=== PATIENT | male | born 1960 | race African-American/Black ===

== ENCOUNTER 2016-10-18 12:16 | Emergency (ER) | payer OTHER ==
[~2016-10-18] VITALS: Ht 165.1 cm; Wt 64.4 kg
[~2016-10-18 12:16] MED LIST: CLINDAMYCIN HC300 MG ORAL
[2016-10-18 13:05] VITALS: BP 132/76
--- NOTE | 2016-10-18 13:23 | Emergency Room Report ---
History of Present Illness General Chief Complaint: Upper Respiratory Illness Source: Patient Present Illness HPI 56-year-old male presents to the emergency department complaining of productive cough x3 days with intermittent fevers and chills. Patient reports a history of asthma and requires albuterol inhaler at home patient is out of his inhaler and states that it was not providing sufficient relief. Patient also states that he has increased reduction of phlegm that causes him to gag. Patient reports nasal congestion and rhinorrhea. reports gagging and vomiting once, non- bloody, and denies nausea or abdominal pain. he denies ill contacts or recent travel. he is not up-to-date with yearly flu vaccination. he denies history of cardiac disease specifically heart failure and denies edema in the lower extremities . Denies CP, Palpitations, LOC, AMS, dizziness, Changes in Vision, Sensation, paresthesias, or a sudden severe headache. Allergies: Coded Allergies: LABETALOL (Verified Allergy, Unknown, cp, 09/08/16) Patient History Past Medical History: see triage record Past Surgical History: none Pertinent Family History: none Reviewed Nursing Documentation: PMH: Agreed, PSxH: Agreed Nursing Documentation-PMH Hx Cardiac Problems: Yes - CHF Hx Hypertension: Yes Hx Diabetes: Yes Hx Dialysis: No - renal failure Review of Systems All Other Systems: negative except mentioned in HPI Physical Exam Vital Signs Date Time Temp Pulse Resp B/P Pulse Ox O2 Delivery O2 Flow Rate FiO2 10/18/16 12:38 100.8 94 18 132/76 97 Room Air Sp02 EP Interpretation: reviewed, normal General Appearance: no apparent distress, alert, GCS 15, non-toxic Head: normocephalic, atraumatic Eyes: bilateral eye PERRL, bilateral eye normal inspection ENT: hearing grossly normal, normal pharynx, no angioedema, normal voice Neck: full range of motion, supple/symm/no masses Respiratory: chest non-tender, lungs clear, normal breath sounds, speaking full sentences, wheezing - expiratory wheezes bilaterally Cardiovascular #1: regular rate, rhythm, no edema Gastrointestinal: normal bowel sounds, non tender, soft, non-distended, no guarding Rectal: deferred Genitourinary: normal inspection, no CVA tenderness Musculoskeletal: back normal, gait/station normal, normal range of motion, non- tender, no calf tenderness Neurologic: alert, oriented x3, responsive, motor strength/tone normal, sensory intact, speech normal Psychiatric: judgement/insight normal, memory normal, mood/affect normal, no suicidal/homicidal ideation Skin: normal color, no rash, warm/dry, well hydrated Lymphatic: no adenopathy Medical Decision Making PA Attestation Dr. Stokes is my supervising Physician whom patient management has been discussed with. Diagnostic Impression: Primary Impression: Bronchitis Additional Impression: Upper respiratory infection Qualified Codes: J06.9 - Acute upper respiratory infection, unspecified ER Course Pt. presents to the emergency department complaining of productive cough x3 days with intermittent fevers and chills. Patient reports a history of asthma Ddx considered but are not limited to URI, pneumonia, PE, strep pharyngitis, meningitis., CHF, asthma/copd exacerbation Vital signs: Pt. is afebrile, the remaining VS are WNL H&PE are most consistent with URI- no meningeal signs, oropharynx is not involved, no evidence of bacterial infection at this time. ORDERS: none required at this time, the diagnosis is clinical ED INTERVENTIONS: -Albuterol Nebulized -Atrovent Nebulized ---upon re-evaluation lung sounds have improved, wheezes have subsided. --PT. EDUCATION: Discussed antibiotic resistance with inappropriate prescribing of antibiotics for viral illnesses. Discussed signs and symptoms to indicate viral illness versus bacterial illness. DISCHARGE: At this time pt. is stable for d/c to home. Will provide printed patient care instructions, and any necessary prescriptions. Care plan and follow up instructions have been discussed with the patient prior to discharge. Last Vital Signs Date Time Temp Pulse Resp B/P Pulse Ox O2 Delivery O2 Flow Rate FiO2 10/18/16 13:05 94 18 Room Air 10/18/16 13:05 100.8 132/76 97 Disposition: HOME, SELF-CARE Condition: Stable Scripts Codeine/Promethazine Hcl* (PROMETHAZINE-CODEINE SYRUP*) 118 Ml Syrup 5 ML ORAL Q6H Y for For Cough, #118 ML 0 Refills Prov: Betsy Garcia 10/18/16 Referrals: [facility],REFERRING (PCP) Patient Instructions: Upper Respiratory Infection, Adult Additional Instructions: Take medications as directed. Follow up with PCP in 3-5 days Return sooner to ED if new symptoms occur, or current symptoms become worse. Do not drink alcohol, drive, or operate heavy machinery while taking Cough Syrup as this may cause drowsiness. Betsy Garcia Oct 18, 2016 13:23
[2016-10-18] MEDS ORDERED: ZITHROMAX250 MG ORAL (13:24)
[2016-10-18] MEDS ORDERED: PROMETHAZINE-C118 M1 ORAL (13:25)
[2016-10-18 13:46] VITALS: BP 132/76
== END 2016-10-18 13:52 | disposition home or self-care (01) ==
LOC: EMR 13:15
DX: J40 Bronchitis, not specified as acute or chronic (principal); J06.9 Acute upper respiratory infection, unspecified; I10 Essential (primary) hypertension; E11.9 Type 2 diabetes mellitus without complications; I50.9 Heart failure, unspecified
CPT/HCPCS: 82962; 99282

== ENCOUNTER 2017-06-25 21:19 | Inpatient (IN) | payer OTHER ==
[~2017-06-25] VITALS: Ht 165.1 cm; Wt 63.5 kg
[~2017-06-25 21:19] MED LIST changes: +PROMETHAZINE-C118 M1 ORAL; +ZITHROMAX250 MG ORAL
[2017-06-25 22:20] VITALS: BP 181/88
--- NOTE | 2017-06-25 22:31 | Emergency Room Report ---
History of Present Illness General Chief Complaint: Abnormal Labs Source: Patient Present Illness HPI 49-year-old male history of hypertension, COPD, not on dialysis, presenting with abnormal labs. Patient states that he had his labs drawn yesterday by his renal doctor, was told to go to the emergency room as he had hyperlipidemia 53. Patient denies any current symptoms, denies any chest pain shortness of breath nausea vomiting abdominal pain. Allergies: Coded Allergies: LABETALOL (Verified Allergy, Unknown, cp, 09/08/16) Patient History Past Medical History: see triage record Past Surgical History: none Pertinent Family History: none Reviewed Nursing Documentation: PMH: Agreed, PSxH: Agreed Nursing Documentation-PMH Hx Hypertension: Yes - MACULAR EDEMA,METABOLIC BONE DISEASE Hx Diabetes: Yes - DIABETIC RETINOPATHY Hx Gastrointestinal Problems: Yes - CDK Hx Dialysis: No - renal failure Review of Systems All Other Systems: negative except mentioned in HPI Physical Exam Vital Signs Date Time Temp Pulse Resp B/P (MAP) Pulse Ox O2 Delivery O2 Flow Rate FiO2 06/25/17 22:09 97.5 64 18 181/88 99 Room Air Sp02 EP Interpretation: reviewed, normal General Appearance: normal inspection, well appearing, no apparent distress, alert, GCS 15, non-toxic Head: normocephalic, atraumatic Eyes: bilateral eye normal inspection, bilateral eye PERRL, bilateral eye EOMI ENT: normal ENT inspection, normal pharynx, normal voice, moist mucus membranes Neck: normal inspection, full range of motion, supple Respiratory: normal inspection, lungs clear, normal breath sounds, no respiratory distress, no retraction, no wheezing, speaking full sentences, chest symmetrical Cardiovascular #1: normal inspection, regular rate, rhythm, no edema, normal capillary refill Cardiovascular #2: 2+ radial (R), 2+ radial (L) Gastrointestinal: normal inspection, non tender, soft, non-distended, no guarding Genitourinary: no CVA tenderness Musculoskeletal: normal inspection, back normal, normal range of motion, non- tender Neurologic: normal inspection, alert, oriented x3, responsive, motor strength/ tone normal, sensory intact, normal gait, speech normal Psychiatric: normal inspection, judgement/insight normal, memory normal Skin: normal inspection, normal color, no rash, warm/dry, well hydrated, normal turgor Medical Decision Making Diagnostic Impression: Primary Impression: Chronic renal failure Additional Impression: Hyperkalemia ER Course 49-year-old male with renal disease sent in for hyperkalemia DDX: Electrolyte disturbance/ hyperkalemia Plan: Obtain labs, ua, EKG ER course: Patient has been monitored during ED stay, HD stable Potassium level: 5.8 hyperkalemia cocktail given Patient had a witnessed possible seizure, less than 30 seconds, generalized tonic-clonic, with postictal state There is no known seizures in this patient Repeat blood work drawn Accu-Chek: found to be critically low - amp d50 given patient now more awake/alert, tolerating PO repeat acchucheck ~109 repeat accucheck 60, another amp d50 given Patient has remained awake alert, nad Disposition: Patient is to be admitted to telemetry Pt endorsed to Dr Salazar via Dr. Lopez who has accepted pt for admission Please note that this Emergency Department Report was dictated using [employer] meat [employer] technology software, occasionally this can lead to erroneous entry secondary to interpretation by the dictation equipment. Laboratory Tests Test 06/25/17 22:50 White Blood Count 6.4 K/UL (4.8-10.8) Red Blood Count 2.54 M/UL (4.70-6.10) L Hemoglobin 8.0 G/DL (14.2-18.0) L Hematocrit 26.1 % (42.0-52.0) L Mean Corpuscular Volume 103 FL (80-99) H Mean Corpuscular Hemoglobin 31.4 PG (27.0-31.0) H Mean Corpuscular Hemoglobin Concent 30.5 G/DL (32.0-36.0) L Red Cell Distribution Width 13.6 % (11.6-14.8) Platelet Count 203 K/UL (150-450) Mean Platelet Volume 5.8 FL (6.5-10.1) L Neutrophils (%) (Auto) 68.4 % (45.0-75.0) Lymphocytes (%) (Auto) 23.2 % (20.0-45.0) Monocytes (%) (Auto) 5.9 % (1.0-10.0) Eosinophils (%) (Auto) 1.7 % (0.0-3.0) Basophils (%) (Auto) 0.8 % (0.0-2.0) Sodium Level 141 mEQ/L (135-145) Potassium Level 5.8 mEQ/L (3.4-4.9) H Chloride Level 109 mEQ/L (98-107) H Carbon Dioxide Level 20 mEQ/L (20-30) Anion Gap 12 (5-15) Blood Urea Nitrogen 54 mg/dL (7-23) H Creatinine 4.8 mg/dL (0.7-1.2) H Estimate Glomerular Filtration Rate 15.3 mL/min (>60) Glucose Level 69 mg/dL (74-106) L Calcium Level 8.8 mg/dL (8.6-10.2) Total Bilirubin 0.4 mg/dL (0.0-1.2) Aspartate Amino Transferase (AST) 18 U/L (5-40) Alanine Aminotransferase (ALT) 10 U/L (3-41) Alkaline Phosphatase 113 U/L (40-129) Total Protein 8.9 g/dL (6.6-8.7) H Albumin 4.4 g/dL (3.5-5.2) Globulin 4.5 g/dL Albumin/Globulin Ratio 0.9 (1.0-2.7) L EKG Diagnostic Results Rate: normal Rhythm: NSR ST Segments: other - slight peaked T waves ASA given to the pt in ED: No Rhythm Strip Diag. Results EP Interpretation: yes Rate: 70 Rhythm: NSR, no PVC's, no ectopy Chest X-Ray Diagnostic Results Chest X-Ray Diagnostic Results : Chest X-Ray Ordered: Yes # of Views/Limited/Complete: 1 View Indication: Other EP Interpretation: Yes Interpretation: no consolidation, no effusion, no pneumothorax, no acute cardiopulmonary disease Impression: No acute disease Electronically Signed by: Electronically signed by Mara Jose MD Last Vital Signs Date Time Temp Pulse Resp B/P (MAP) Pulse Ox O2 Delivery O2 Flow Rate FiO2 06/25/17 22:09 97.5 64 18 181/88 99 Room Air Disposition: ADMITTED INPATIENT Condition: Mara Brock M.D. Jun 25, 2017 22:31
[2017-06-25 23:20] LABS: BASOPHILS % (AUTO) 0.8 % (0.0-2.0); EOSINOPHILS % (AUTO) 1.7 % (0.0-3.0); LYMPHOCYTES % (AUTO) 23.2 % (20.0-45.0); MEAN CORPUSCULAR HEMOGLOBIN 31.4 PG (27.0-31.0); MEAN CORPUSCULAR HGB CONC 30.5 G/DL (32.0-36.0); MEAN CORPUSCULAR VOLUME 103 FL (80-99); MEAN PLATELET VOLUME 5.8 FL (6.5-10.1); MONOCYTES % (AUTO) 5.9 % (1.0-10.0); NEUTROPHILS % (AUTO) 68.4 % (45.0-75.0); PLATELET COUNT 203 K/UL (150-450); RED BLOOD COUNT 2.54 M/UL (4.70-6.10); RED CELL DISTRIBUTION WIDTH 13.6 % (11.6-14.8); WHITE BLOOD COUNT 6.4 K/UL (4.8-10.8)
[2017-06-25 23:23] LABS: ALBUMIN/GLOBULIN RATIO 0.9 (1.0-2.7); CALCIUM 8.8 mg/dL (8.6-10.2); CREATININE 4.8 mg/dL (0.7-1.2); GLOMERULAR FILTRATION RATE 15.3 mL/min (>60); POTASSIUM 5.8 mEQ/L (3.4-4.9); TOTAL PROTEIN 8.9 g/dL (6.6-8.7)
[2017-06-25] MEDS ORDERED: Sodium Bicarbonate 50ml Carp IV ONE (23:45)
[2017-06-25] MEDS ORDERED: Calcium Gluconate 1gm/10ml vial IVP ONE (23:45)
[2017-06-26] VITALS (9 sets, daily range): BP systolic 133–189; BP diastolic 72–99
[2017-06-26] MEDS ORDERED: ASPIR 8181 MG ORAL (01:40)
[2017-06-26] MEDS ORDERED: FUROSEMIDE40 MG/5 ML ORAL (01:40)
[2017-06-26] MEDS ORDERED: FERROUS SULFAT325 MG ORAL (01:40)
[2017-06-26] MEDS ORDERED: AMLODIPINE-ATO1 EAC4 ORAL (01:40)
[2017-06-26] MEDS ORDERED: METOPROLOL TART50 M1 ORAL (01:40)
[2017-06-26] MEDS ORDERED: CALCITRIOL0.5 MCG PO (01:40)
[2017-06-26] MEDS ORDERED: ATORVASTATIN CA80 MG ORAL (01:40)
[2017-06-26] MEDS ORDERED: SODIUM POL15 GM/60 M PO (01:40)
[2017-06-26 02:46] LABS: CALCIUM 9.1 mg/dL (8.6-10.2); CREATININE 4.7 mg/dL (0.7-1.2); GLOMERULAR FILTRATION RATE 15.6 mL/min (>60)
[2017-06-26] MEDS ORDERED: Zolpidem 5mg tab ORAL PRN (06:15)
[2017-06-26] MEDS ORDERED: Miralax 17gm pkt ORAL PRN (06:15)
[2017-06-26] MEDS: NovoLOG Insulin Flexpen SUBQ SCH ×4 (06:30→20:28)
[2017-06-26 08:10] LABS: TROPONIN I < 0.30 ng/mL (<=0.30)
[2017-06-26 08:20] LABS: CKMB 10.4 ng/mL (< 6.7)
--- NOTE | 2017-06-26 08:53 | Consultation ---
Consult Note Consult Note asked to eval for renal failure- 49-year-old male history of hypertension, COPD, not on dialysis, presenting with abnormal labs. Patient states that he had his labs drawn yesterday by his renal doctor, was told to go to the emergency room as he had hyperlipidemia 53. Patient denies any current symptoms, denies any chest pain shortness of breath nausea vomiting abdominal pain. Allergies: LABETALOL (Verified Allergy, Unknown, cp, 09/08/16) Hx Hypertension: Yes - MACULAR EDEMA,METABOLIC BONE DISEASE Hx Diabetes: Yes - DIABETIC RETINOPATHY Hx Gastrointestinal Problems: Yes - CDK Hx Dialysis: No - renal failure interviewed examined data reviewed Assessment/Plan advanced CKD , likely ESRD HTN DM Plan: Renal diet Anemia anderson Keep BP and BS in check Echo kidney ABDOUL NICHOLE Jun 26, 2017 08:53
[2017-06-26] MEDS: Docusate 100mg cap ORAL SCH ×2 (09:54→20:25)
[2017-06-26] MEDS: Calcitriol 0.5mcg Cap ORAL SCH (09:54)
[2017-06-26] MEDS: Aspirin EC 81mg tab ORAL SCH (09:54)
[2017-06-26] MEDS: Metoprolol Tartrate 50mg tab ORAL SCH ×2 (09:54→20:26)
[2017-06-26] MEDS: Heparin 5000 units/ml inj SUBQ SCH ×2 (09:57→20:28)
[2017-06-26 10:20] LABS: PHOSPHORUS 4.1 mg/dL (2.5-4.8); URIC ACID 8.4 mg/dL (3.0-7.5)
[2017-06-26 10:27] LABS: HEMOLYSIS 4; IRON 98 ug/dL (59-158); TOTAL IRON BINDING CAPACITY 255 ug/dL (250-400)
[2017-06-26 10:33] LABS: HEMOGLOBIN A1C 5.3 % (< 6.0)
--- NOTE | 2017-06-26 11:42 | Diagnostic Imaging Report ---
Indication: Altered mental status Comparison: 11/28/2010 Findings: Single view of the chest shows a normal cardiomediastinal silhouette. Pulmonary vasculature is normal. Lung are clear. Soft tissues and osseous structures are within normal limits. Impression: Normal chest
[2017-06-26 13:00] LABS: APPEARANCE,URINE SLIGHTLY CLOUDY; KETONES,URINE NEGATIVE (NEGATIVE); LEUKOCYTE ESTERASE ,URINE NEGATIVE (NEGATIVE); NITRITE,URINE NEGATIVE (NEGATIVE); PH,URINE 5 (4.5-8.0); PROTEIN,URINE 2+ (NEGATIVE); UROBILINOGEN,URINE NORMAL MG/DL (0.0-1.0)
[2017-06-26 13:07] LABS: BACTERIA,URINE OCCASIONAL /HPF; RBC,URINE 20-30 /HPF (0 - 0); SQUAMOUS EPITHELIAL CELL,UR OCCASIONAL /LPF (NONE/OCC)
--- NOTE | 2017-06-26 15:22 | History and Physical ---
History of Present Illness General Date patient seen: Jun 26, 2017 Time patient seen: 15:22 Reason for Hospitalization: Abnormal Labs Present Illness HPI 57yo male with pmh of CKD, HTN, COPD who presents with abnormal labs. Pt had labs done by outpatient doctors and he was instructed to presented to ER given elevated potassium level. Pt denies chest pain, SOB, f/c, n/c, d/c, abd pain. Pt states he makes abt 1/2L of urine a day. C/o generalized weakness. Pt states he is abt to be set up for a fistula soon to initiate dialysis. Allergies: Coded Allergies: LABETALOL (Verified Allergy, Unknown, cp, 09/08/16) Medication History Scheduled Amlodipine-Atorvastatin 10-20 Mg (Amlodipine-Atorvastatin 10-20 Mg), 1 TAB ORAL DAILY, (Reported) Aspirin* (Aspir 81*), 81 MG ORAL DAILY, (Reported) Atorvastatin Calcium* (Lipitor*), 80 MG ORAL BEDTIME, (Reported) Clindamycin Hcl (Clindamycin Hcl), 300 MG ORAL TID Ferrous Sulfate* (Ferrous Sulfate*), 325 MG ORAL TWICE A DAY, (Reported) Furosemide (Furosemide), 40 MG ORAL DAILY, (Reported) Metoprolol Tartrate* (Metoprolol Tartrate*), 50 MG ORAL EVERY 12 HOURS, ( Reported) Scheduled PRN Codeine/Promethazine Hcl* (Promethazine-Codeine Syrup*), 5 ML ORAL Q6H PRN for For Cough Miscellaneous Medications Calcitriol (Calcitriol), 0.5 MCG PO, (Reported) Sodium Polystyrene Sulfonate (Sodium Polystyrene Sulfonate), 15 GM PO, (Reported ) Patient History History Provided By: Patient, Family Member, Medical Record Healthcare decision maker Resuscitation status Advanced Directive on File Family History Family History: Patient reports no known family medical history. Social History Social History: (1) lives with brother Review of Systems Constitutional: Reports: weakness Eye: Reports: no symptoms ENT: Reports: no symptoms Respiratory: Reports: no symptoms Cardiovascular: Reports: no symptoms Gastrointestinal: Reports: no symptoms Genitourinary: Reports: no symptoms Musculoskeletal: Reports: no symptoms Skin: Reports: no symptoms Psychiatric: Reports: no symptoms Neurological: Reports: no symptoms Endocrine: Reports: no symptoms Hematologic/Lymphatic: Reports: no symptoms All Other Systems: negative except mentioned in HPI Physical Exam Physical Exam Narrative General: alert, cooperative, no distress, appears stated age Head: normocephalic, without obvious abnormality, atraumatic Eyes: conjunctivae/corneas clear. PERRL, EOM's intact Throat: lips, mucosa, and tongue normal. MMM Neck: supple, symmetrical, trachea midline, and no JVD Lungs: clear to auscultation bilaterally Heart: regular rate and rhythm, S1, S2 normal, no murmur, click, rub or gallop Abdomen: soft, non-tender, non-distended, bowel sounds normal; no masses or organomegaly Extremities: extremities normal, atraumatic, no cyanosis or edema Pulses: 2+ and symmetric Skin: skin color, texture, turgor normal; no rashes or lesions Neurologic: grossly normal, no focal deficits Last 24 Hour Vital Signs Date Time Temp Pulse Resp B/P (MAP) Pulse Ox O2 Delivery O2 Flow Rate FiO2 06/26/17 12:00 63 06/26/17 12:00 97.7 65 18 136/99 99 Room Air 06/26/17 09:54 82 168/90 06/26/17 08:10 96.8 82 18 168/90 99 Room Air 06/26/17 08:00 82 06/26/17 07:45 97.5 64 15 146/72 100 Room Air 06/26/17 07:44 64 16 146/72 100 Room Air 06/26/17 06:27 72 159/71 06/26/17 05:47 74 16 177/82 98 Room Air 06/26/17 04:20 76 17 169/77 97 Room Air 06/26/17 02:15 86 14 189/86 98 Room Air 06/26/17 00:00 66 20 172/86 100 Room Air 06/25/17 22:20 97.5 18 181/88 99 Room Air 06/25/17 22:09 97.5 64 18 181/88 99 Room Air Intake and Output 06/26/17 06/27/17 19:00 07:00 Intake Total 720 ml Balance 720 ml Intake Oral 720 ml # Voids 2 # Bowel Movements 1 Laboratory Tests Test 06/25/17 22:50 06/26/17 07:35 06/26/17 09:27 06/26/17 11:50 White Blood Count 6.4 K/UL (4.8-10.8) Red Blood Count 2.54 M/UL (4.70-6.10) L Hemoglobin 8.0 G/DL (14.2-18.0) L Hematocrit 26.1 % (42.0-52.0) L Mean Corpuscular Volume 103 FL (80-99) H Mean Corpuscular Hemoglobin 31.4 PG (27.0-31.0) H Mean Corpuscular Hemoglobin Concent 30.5 G/DL (32.0-36.0) L Red Cell Distribution Width 13.6 % (11.6-14.8) Platelet Count 203 K/UL (150-450) Mean Platelet Volume 5.8 FL (6.5-10.1) L Neutrophils (%) (Auto) 68.4 % (45.0-75.0) Lymphocytes (%) (Auto) 23.2 % (20.0-45.0) Monocytes (%) (Auto) 5.9 % (1.0-10.0) Eosinophils (%) (Auto) 1.7 % (0.0-3.0) Basophils (%) (Auto) 0.8 % (0.0-2.0) Sodium Level 141 mEQ/L (135-145) 144 mEQ/L (135-145) Potassium Level 5.8 mEQ/L (3.4-4.9) H 5.0 mEQ/L (3.4-4.9) H Chloride Level 109 mEQ/L (98-107) H 110 mEQ/L (98-107) H Carbon Dioxide Level 20 mEQ/L (20-30) 22 mEQ/L (20-30) Anion Gap 12 (5-15) 12 (5-15) Blood Urea Nitrogen 54 mg/dL (7-23) H 54 mg/dL (7-23) H Creatinine 4.8 mg/dL (0.7-1.2) H 4.7 mg/dL (0.7-1.2) H Estimat Glomerular Filtration Rate 15.3 mL/min (>60) 15.6 mL/min (>60) Glucose Level 69 mg/dL (74-106) L 109 mg/dL (74-106) H Calcium Level 8.8 mg/dL (8.6-10.2) 9.1 mg/dL (8.6-10.2) Total Bilirubin 0.4 mg/dL (0.0-1.2) Aspartate Amino Transf (AST/SGOT) 18 U/L (5-40) Alanine Aminotransferase (ALT/SGPT) 10 U/L (3-41) Alkaline Phosphatase 113 U/L (40-129) Total Protein 8.9 g/dL (6.6-8.7) H Albumin 4.4 g/dL (3.5-5.2) Globulin 4.5 g/dL Albumin/Globulin Ratio 0.9 (1.0-2.7) L Total Creatine Kinase 408 U/L (38-174) H Creatine Kinase MB 10.4 ng/mL (< 6.7) H Creatine Kinase MB Relative Index 2.5 Troponin I < 0.30 ng/mL (<=0.30) Pro-B-Type Natriuretic Peptide 525 pg/mL (0-125) H Hemoglobin A1c 5.3 % (< 6.0) Uric Acid 8.4 mg/dL (3.0-7.5) H Phosphorus Level 4.1 mg/dL (2.5-4.8) Iron Level 98 ug/dL (59-158) Total Iron Binding Capacity 255 ug/dL (250-400) Percent Iron Saturation 38 % (15-50) Unsaturated Iron Binding 157 ug/dL (112-346) Ferritin 214 ng/mL (10-230) Urine Color Pending Urine Appearance Pending Urine pH Pending Urine Specific [place] Pending Urine Protein Pending Urine Glucose (UA) Pending Urine Ketones Pending Urine Occult Blood Pending Urine Nitrite Pending Urine Bilirubin Pending Urine Urobilinogen Pending Urine Leukocyte Esterase Pending Urine RBC 20-30 /HPF (0 - 0) H Urine WBC 2-4 /HPF (0 - 0) Urine Squamous Epithelial Cells Occasional /LPF Urine Bacteria Occasional /HPF (NONE) Height (Feet): 5 Height (Inches): 5.00 Weight (Pounds): 140 Medications Current Medications Medications (Trade) Dose Ordered Sig/Yannick Route PRN Reason Start Time Stop Time Status Last Admin Dose Admin Acetaminophen (Tylenol) 650 mg Q4H PRN ORAL Mild Pain (Pain Scale 1-3) 06/26/17 06:15 07/26/17 06:14 Amlodipine Besylate (Norvasc) 10 mg DAILY ORAL 06/27/17 09:00 07/27/17 08:59 Aspirin (Ecotrin) 81 mg DAILY ORAL 06/26/17 09:00 07/26/17 08:59 06/26/17 09:54 Atorvastatin Calcium (Lipitor) 80 mg BEDTIME ORAL 06/26/17 21:00 07/26/17 20:59 Calcitriol (Rocaltrol) 0.5 mcg DAILY ORAL 06/26/17 09:00 07/26/17 08:59 06/26/17 09:54 Clonidine HCl (Catapres) 0.1 mg Q4H PRN ORAL bp over 160 syst 06/26/17 09:00 07/26/17 08:59 Dextrose (Dextrose 50%) STAT PRN IV Hypoglycemia 06/26/17 06:30 07/26/17 06:29 Docusate Sodium (Colace) 100 mg EVERY 12 HOURS ORAL 06/26/17 09:00 07/26/17 08:59 06/26/17 09:54 Epoetin Siddhartha (Procrit (for non ESRD use)) 10,000 units WED-WED-WED SUBQ 06/28/17 21:00 07/28/17 20:59 Heparin Sodium (Porcine) (Heparin 5000 units/ml) 5,000 units EVERY 12 HOURS SUBQ 06/26/17 09:00 07/26/17 08:59 06/26/17 09:57 Insulin Aspart (NovoLOG) BEFORE MEALS AND HS SUBQ 06/26/17 06:30 07/26/17 06:29 06/26/17 11:52 Metoprolol Tartrate (Lopressor) 50 mg EVERY 12 HOURS ORAL 06/26/17 09:00 07/26/17 08:59 06/26/17 09:54 Pantoprazole (Protonix) 40 mg EVERY 12 HOURS ORAL 06/26/17 09:30 07/26/17 09:29 06/26/17 09:54 Polyethylene Glycol (Miralax) 17 gm HSPRN PRN ORAL Constipation 06/26/17 06:15 07/26/17 06:14 Zolpidem Tartrate (Ambien) 5 mg HSPRN PRN ORAL Insomnia 06/26/17 06:15 07/03/17 06:14 Assessment/Plan Problem List: (1) Hyperkalemia ICD Codes: E87.5 - Hyperkalemia SNOMED: 39511360 (2) CKD (chronic kidney disease) stage 5, GFR less than 15 ml/min ICD Codes: N18.5 - Chronic kidney disease, stage 5 SNOMED: 096508611 (3) DM2 (diabetes mellitus, type 2) ICD Codes: E11.9 - Type 2 diabetes mellitus without complications SNOMED: 50548437 (4) Hypoglycemia ICD Codes: E16.2 - Hypoglycemia, unspecified SNOMED: 276812533 Status: stable Assessment/Plan Admit inpt s/p treatment for hyperkalemia in ED --> K 5 now Trend BMP Renal consulted Pt likely needs HD soon, but does not appear urgent/emergent at this time 24h urine studies ordered per renal Strict I/O's Check iron panel, ferritin Cont home meds AKIKO Supportive care Dispo: possible d/c tomorrow if K remains stable with outpatient renal f/u FULL CODE D/w pt/family, RN, renal regarding mgmt and dispo Linda Cardoso M.D. Jun 26, 2017 15:22
[2017-06-26] MEDS: Atorvastatin 80mg tab ORAL SCH (20:26)
[2017-06-27] VITALS (8 sets, daily range): BP systolic 100–179; BP diastolic 59–84
[2017-06-27] MEDS: NovoLOG Insulin Flexpen SUBQ SCH ×4 (06:30→20:32)
[2017-06-27 08:13] LABS: MEAN CORPUSCULAR HEMOGLOBIN 31.7 PG (27.0-31.0); MEAN CORPUSCULAR HGB CONC 31.6 G/DL (32.0-36.0); MEAN CORPUSCULAR VOLUME 100 FL (80-99); MEAN PLATELET VOLUME 6.4 FL (6.5-10.1); PLATELET COUNT 215 K/UL (150-450); RED BLOOD COUNT 2.21 M/UL (4.70-6.10); RED CELL DISTRIBUTION WIDTH 13.6 % (11.6-14.8); WHITE BLOOD COUNT 6.4 K/UL (4.8-10.8)
[2017-06-27 08:28] LABS: PROTHROMBIN TIME 10.5 SEC (9.30-11.50)
[2017-06-27 08:35] LABS: ALBUMIN/GLOBULIN RATIO 1.1 (1.0-2.7); CALCIUM 8.2 mg/dL (8.6-10.2); CHOLESTEROL/HDL RATIO 2.4 (3.3-4.4); CREATININE 4.9 mg/dL (0.7-1.2); GLOMERULAR FILTRATION RATE 14.9 mL/min (>60); MAGNESIUM 2.1 mg/dL (1.7-2.5); POTASSIUM 4.8 mEQ/L (3.4-4.9); THYROID STIMULATING HORMONE 1.13 uIU/mL (0.300-4.500); TOTAL PROTEIN 6.9 g/dL (6.6-8.7)
[2017-06-27 08:43] LABS: CRP QUANT < 0.3 mg/dL (< 0.5); URIC ACID 8.9 mg/dL (3.0-7.5)
[2017-06-27 08:57] LABS: BAND NEUTROPHILS % (MANUAL) 0 % (0-8); BASOPHILS % (MANUAL) 1 % (0-2); EOSINOPHILS % (MANUAL) 3 % (0-3); LYMPHOCYTES % (MANUAL) 27 % (20-45); NEUTROPHILS % (MANUAL) 63 % (45-75); PLATELET ESTIMATE ADEQUATE; PLATELET MORPHOLOGY NORMAL; TOTAL CELLS COUNTED 100
[2017-06-27 08:58] LABS: HYPOCHROMASIA 1+
[2017-06-27] MEDS: Docusate 100mg cap ORAL SCH ×2 (09:02→20:30)
[2017-06-27] MEDS: Aspirin EC 81mg tab ORAL SCH (09:02)
[2017-06-27] MEDS: Heparin 5000 units/ml inj SUBQ SCH ×2 (09:02→20:43)
[2017-06-27] MEDS: Metoprolol Tartrate 50mg tab ORAL SCH ×2 (09:03→20:29)
[2017-06-27] MEDS: Calcitriol 0.5mcg Cap ORAL SCH (09:03)
--- NOTE | 2017-06-27 09:52 | Diagnostic Imaging Report ---
Indication: Acute renal failure Comparison: None Findings: Ultrasound evaluation of the kidneys was performed. The right kidney measures 9.6 cm in length and the left 9.8 cm. Both kidneys are normal in size, shape and echogenic texture. No hydronephrosis. No perinephric fluid collections. Limited imaging of the urinary bladder appears grossly normal. Impression: Sonographically normal appearing kidneys. No hydronephrosis.
--- NOTE | 2017-06-27 13:00 | General Progress Note ---
Assessment/Plan Status: stable Assessment/Plan status: advanced CKD , likely ESRD HTN DM Plan: IV Venofer- One liter IV Renal diet Anemia anderson Keep BP and BS in check Echo pending- kidney SHI -reviewed Subjective ROS Limited/Unobtainable: No Constitutional: Reports: malaise Allergies: Coded Allergies: LABETALOL (Verified Allergy, Unknown, cp, 09/08/16) Objective Last 24 Hour Vital Signs Date Time Temp Pulse Resp B/P (MAP) Pulse Ox O2 Delivery O2 Flow Rate FiO2 06/27/17 12:00 97.7 52 20 114/59 96 Room Air 06/27/17 09:03 67 135/69 06/27/17 09:03 67 135/69 06/27/17 08:00 57 06/27/17 08:00 97.7 67 20 135/69 98 Room Air 06/27/17 04:00 97.2 65 20 144/72 97 Room Air 06/27/17 03:47 61 06/27/17 00:17 179/84 06/27/17 00:00 97.9 68 20 179/84 97 Room Air 06/26/17 23:42 67 06/26/17 20:26 63 133/79 06/26/17 20:00 98.8 66 20 154/76 Room Air 06/26/17 19:05 63 06/26/17 16:38 98.2 63 18 133/79 100 Room Air 06/26/17 16:00 63 Laboratory Tests 06/27/17 05:57: White Blood Count 6.4, Red Blood Count 2.21L, Hemoglobin 7.0L, Hematocrit 22.1L , Mean Corpuscular Volume 100H, Mean Corpuscular Hemoglobin 31.7H, Mean Corpuscular Hemoglobin Concent 31.6L, Red Cell Distribution Width 13.6, Platelet Count 215, Mean Platelet Volume 6.4L, Neutrophils (%) (Auto) , Lymphocytes (%) (Auto) , Monocytes (%) (Auto) , Eosinophils (%) (Auto) , Basophils (%) (Auto) , Differential Total Cells Counted 100, Neutrophils % ( Manual) 63, Lymphocytes % (Manual) 27, Monocytes % (Manual) 6, Eosinophils % ( Manual) 3, Basophils % (Manual) 1, Band Neutrophils 0, Platelet Estimate Adequate, Platelet Morphology Normal, Hypochromasia 1+, Prothrombin Time 10.5, Prothromb Time International Ratio 1.0, Activated Partial Thromboplast Time 27, Sodium Level 143, Potassium Level 4.8, Chloride Level 107, Carbon Dioxide Level 24, Anion Gap 12, Blood Urea Nitrogen 62H, Creatinine 4.9H, Estimat Glomerular Filtration Rate 14.9, Glucose Level 132H, Uric Acid 8.9H, Calcium Level 8.2L, Phosphorus Level 5.0H, Magnesium Level 2.1, Total Bilirubin 0.3, Gamma Glutamyl Transpeptidase 12, Aspartate Amino Transf (AST/SGOT) 11, Alanine Aminotransferase (ALT/SGPT) 9, Alkaline Phosphatase 98, C-Reactive Protein, Quantitative < 0.3, Pro-B-Type Natriuretic Peptide 572H, Total Protein 6.9, Albumin 3.7, Globulin 3.2, Albumin/Globulin Ratio 1.1, Triglycerides Level 84, Cholesterol Level 130, LDL Cholesterol 58L, HDL Cholesterol 55, Cholesterol/HDL Ratio 2.4L, Vitamin B12 Level 259, Thyroid Stimulating Hormone (TSH) 1.130 06/27/17 12:35: Folate [Pending] Height (Feet): 5 Height (Inches): 5.00 Weight (Pounds): 140 General Appearance: no apparent distress Objective no signs of CHF ABDOUL PINEDA Jun 27, 2017 13:00
[2017-06-27] MEDS ORDERED: Iron Sucrose 200 MG in NS 110 ML IV ONE (15:00)
--- NOTE | 2017-06-27 19:10 | Cardiology Report ---
APPROVED REPORT EXAM: Two-dimensional and M-mode echocardiogram with Doppler and color Doppler. INDICATION Congestive Heart Failure M-Mode DIMENSIONS IVSd1.2 (0.7-1.1cm)Left Atrium (MM)3.7 (1.6-4.0cm) LVDd5.1 (3.5-5.6cm)Aortic Root2.8 (2.0-3.7cm) PWd1.3 (0.7-1.1cm)Aortic Cusp Exc.1.7 (1.5-2.0cm) LVDs3.0 (2.5-4.0cm) PWs1.9 cm Normal left ventricular chamber size, systolic function and wall motion. Left ventricular ejection fraction estimated to be 65 -70%. Mild left ventricular hypertrophy. Anterior Echo-free space, may be due to pericardial fat or effusion. Mild left atrial enlargement. Right cardiac chamber sizes are within normal limits. Mild focal aortic valve sclerosis with adequate cusp excursion. Mildly thickened mitral valve leaflets with normal excursion. Mitral annulus and aortic root calcification. Normal pulmonic valve structure. Normal tricuspid valve structure. IVC at normal size with physiologic collapse. A color flow and spectral Doppler study was performed and revealed: Trace aortic regurgitation. Mild mitral regurgitation. Mitral diastolic velocities suggest reduced left ventricular relaxation c/w mild LV diastolic dysfunction (Grade I). Trace tricuspid regurgitation. Tricuspid systolic velocities suggests peak right ventricular systolic pressure of 20 mmHg Pulmonic regurgitation present.
--- NOTE | 2017-06-27 19:17 | General Progress Note ---
Assessment/Plan Problem List: (1) Acute blood loss anemia ICD Codes: D62 - Acute posthemorrhagic anemia SNOMED: 724112831 (2) DM2 (diabetes mellitus, type 2) ICD Codes: E11.9 - Type 2 diabetes mellitus without complications SNOMED: 50302594 (3) CKD (chronic kidney disease) stage 5, GFR less than 15 ml/min ICD Codes: N18.5 - Chronic kidney disease, stage 5 SNOMED: 694403494 (4) Hypoglycemia ICD Codes: E16.2 - Hypoglycemia, unspecified SNOMED: 545455114 (5) Hyperkalemia ICD Codes: E87.5 - Hyperkalemia SNOMED: 03470139 Status: stable Assessment/Plan Hgb downtrending, s/p 1 unit pRBC. F/u CBC s/p treatment for hyperkalemia, K normalized Trend BMP Renal consulted. No emergent need for HD. Appreciate recs 24h urine studies ordered per renal ECHO pending Started on IV venofer Strict I/O's Check iron panel, ferritin Cont home meds AKIKO Supportive care Dispo: possible d/c tomorrow with home health for IV venofer with outpatient renal f/u FULL CODE D/w pt/family, RN, renal regarding mgmt and dispo Subjective Date patient seen: Jun 27, 2017 Allergies: Coded Allergies: LABETALOL (Verified Allergy, Unknown, cp, 09/08/16) Mushroom (Verified Allergy, Unknown, 06/27/17) Subjective Hgb downtrended to 7.0 patient receiving transfusion 1 unit pRBC at this time K normalized BS stable started on IV venofer ECHO pending seen by renal with no emergent need for HD Denies cp, dizziness, sob, n/v Objective Last 24 Hour Vital Signs Date Time Temp Pulse Resp B/P (MAP) Pulse Ox O2 Delivery O2 Flow Rate FiO2 06/27/17 16:00 63 06/27/17 16:00 97.7 68 20 119/60 100 Room Air 06/27/17 12:00 97.7 52 20 114/59 96 Room Air 06/27/17 12:00 51 06/27/17 09:03 67 135/69 06/27/17 09:03 67 135/69 06/27/17 08:00 57 06/27/17 08:00 97.7 67 20 135/69 98 Room Air 06/27/17 04:00 97.2 65 20 144/72 97 Room Air 06/27/17 03:47 61 06/27/17 00:17 179/84 06/27/17 00:00 97.9 68 20 179/84 97 Room Air 06/26/17 23:42 67 06/26/17 20:26 63 133/79 06/26/17 20:00 98.8 66 20 154/76 Room Air Intake and Output 06/27/17 06/28/17 19:00 07:00 Intake Total 650 ml Balance 650 ml Intake Oral 500 ml IV Total 150 ml Laboratory Tests 06/27/17 05:57: White Blood Count 6.4, Red Blood Count 2.21L, Hemoglobin 7.0L, Hematocrit 22.1L , Mean Corpuscular Volume 100H, Mean Corpuscular Hemoglobin 31.7H, Mean Corpuscular Hemoglobin Concent 31.6L, Red Cell Distribution Width 13.6, Platelet Count 215, Mean Platelet Volume 6.4L, Neutrophils (%) (Auto) , Lymphocytes (%) (Auto) , Monocytes (%) (Auto) , Eosinophils (%) (Auto) , Basophils (%) (Auto) , Differential Total Cells Counted 100, Neutrophils % ( Manual) 63, Lymphocytes % (Manual) 27, Monocytes % (Manual) 6, Eosinophils % ( Manual) 3, Basophils % (Manual) 1, Band Neutrophils 0, Platelet Estimate Adequate, Platelet Morphology Normal, Hypochromasia 1+, Prothrombin Time 10.5, Prothromb Time International Ratio 1.0, Activated Partial Thromboplast Time 27, Sodium Level 143, Potassium Level 4.8, Chloride Level 107, Carbon Dioxide Level 24, Anion Gap 12, Blood Urea Nitrogen 62H, Creatinine 4.9H, Estimat Glomerular Filtration Rate 14.9, Glucose Level 132H, Uric Acid 8.9H, Calcium Level 8.2L, Phosphorus Level 5.0H, Magnesium Level 2.1, Total Bilirubin 0.3, Gamma Glutamyl Transpeptidase 12, Aspartate Amino Transf (AST/SGOT) 11, Alanine Aminotransferase (ALT/SGPT) 9, Alkaline Phosphatase 98, C-Reactive Protein, Quantitative < 0.3, Pro-B-Type Natriuretic Peptide 572H, Total Protein 6.9, Albumin 3.7, Globulin 3.2, Albumin/Globulin Ratio 1.1, Triglycerides Level 84, Cholesterol Level 130, LDL Cholesterol 58L, HDL Cholesterol 55, Cholesterol/HDL Ratio 2.4L, Vitamin B12 Level 259, Thyroid Stimulating Hormone (TSH) 1.130 06/27/17 12:35: Folate [Pending] Height (Feet): 5 Height (Inches): 5.00 Weight (Pounds): 140 General Appearance: no apparent distress EENT: PERRL/EOMI Neck: non-tender Cardiovascular: normal peripheral pulses, normal rate, regular rhythm Respiratory/Chest: chest wall non-tender, lungs clear, normal breath sounds Abdomen: normal bowel sounds, non tender, soft Extremities: normal range of motion, non-tender Neurologic: billing and insurance coordinator II-XII grossly normal, no motor/sensory deficits Vicenta Ventura N.P. Jun 27, 2017 19:17
[2017-06-27] MEDS: Atorvastatin 80mg tab ORAL SCH (20:28)
[2017-06-27 20:45] LABS: MEAN CORPUSCULAR HEMOGLOBIN 31.6 PG (27.0-31.0); MEAN CORPUSCULAR HGB CONC 31.6 G/DL (32.0-36.0); MEAN CORPUSCULAR VOLUME 100 FL (80-99); MEAN PLATELET VOLUME 5.8 FL (6.5-10.1); PLATELET COUNT 178 K/UL (150-450); RED BLOOD COUNT 2.47 M/UL (4.70-6.10); RED CELL DISTRIBUTION WIDTH 13.6 % (11.6-14.8); WHITE BLOOD COUNT 7.6 K/UL (4.8-10.8)
[2017-06-27 21:55] LABS: TOTAL CELLS COUNTED 100
[2017-06-27 21:59] LABS: LYMPHOCYTES % (MANUAL) 20 % (20-45); NEUTROPHILS % (MANUAL) 75 % (45-75)
[2017-06-27 22:00] LABS: BAND NEUTROPHILS % (MANUAL) 0 % (0-8); BASOPHILS % (MANUAL) 0 % (0-2); EOSINOPHILS % (MANUAL) 0 % (0-3); HYPOCHROMASIA OCCASIONAL; PLATELET ESTIMATE ADEQUATE; PLATELET MORPHOLOGY NORMAL
[2017-06-28 04:24] VITALS: BP 160/79
[2017-06-28] MEDS: NovoLOG Insulin Flexpen SUBQ SCH ×3 (06:16→15:55)
[2017-06-28 07:59] LABS: BASOPHILS % (AUTO) 0.6 % (0.0-2.0); EOSINOPHILS % (AUTO) 2.3 % (0.0-3.0); LYMPHOCYTES % (AUTO) 22.4 % (20.0-45.0); MEAN CORPUSCULAR HEMOGLOBIN 33.5 PG (27.0-31.0); MEAN CORPUSCULAR VOLUME 99 FL (80-99); MEAN PLATELET VOLUME 6.7 FL (6.5-10.1); MONOCYTES % (AUTO) 8.4 % (1.0-10.0); NEUTROPHILS % (AUTO) 66.3 % (45.0-75.0); PLATELET COUNT 183 K/UL (150-450); RED BLOOD COUNT 2.43 M/UL (4.70-6.10); RED CELL DISTRIBUTION WIDTH 13.2 % (11.6-14.8); WHITE BLOOD COUNT 6.9 K/UL (4.8-10.8)
[2017-06-28 08:00] VITALS: BP 161/88
[2017-06-28 08:13] LABS: ALANINE AMINOTRANSFERASE 8 U/L (3-41); ALBUMIN/GLOBULIN RATIO 1.1 (1.0-2.7); ANION GAP 11 (5-15); ASPARTATE AMINO TRANSFERASE 10 U/L (5-40); CALCIUM 8.5 mg/dL (8.6-10.2); CARBON DIOXIDE 22 mEQ/L (20-30); CHLORIDE 107 mEQ/L (98-107); CREATININE 5.4 mg/dL (0.7-1.2); CRP QUANT < 0.3 mg/dL (< 0.5); GLOMERULAR FILTRATION RATE 13.3 mL/min (>60); HEMOLYSIS 2; MAGNESIUM 2.1 mg/dL (1.7-2.5); PHOSPHORUS 4.7 mg/dL (2.5-4.8); POTASSIUM 5.7 mEQ/L (3.4-4.9); SODIUM 140 mEQ/L (135-145); TOTAL PROTEIN 6.8 g/dL (6.6-8.7); URIC ACID 8.4 mg/dL (3.0-7.5)
[2017-06-28] MEDS: Docusate 100mg cap ORAL SCH (08:44)
[2017-06-28] MEDS: Aspirin EC 81mg tab ORAL SCH (08:44)
[2017-06-28] MEDS: Metoprolol Tartrate 50mg tab ORAL SCH (08:47)
[2017-06-28] MEDS: Calcitriol 0.5mcg Cap ORAL SCH (08:47)
[2017-06-28] MEDS: Heparin 5000 units/ml inj SUBQ SCH (08:48)
[2017-06-28] MEDS ORDERED: Sodium Polystyrene Sulfonate 15gm Powder ORAL ONE (09:00)
[2017-06-28] MEDS ORDERED: Lidocaine 1% Plain 30 ml INJ PRN (10:00)
[2017-06-28] MEDS ORDERED: Heparin 2000 units/Ns 1000ml INJ PRN (10:00)
[2017-06-28] MEDS ORDERED: Tubing IV Secondary IV ONE (10:17)
[2017-06-28] MEDS ORDERED: Tubing Blood Filter IV ONE (10:17)
[2017-06-28] MEDS ORDERED: NS 275ml ONE (10:17)
[2017-06-28] MEDS ORDERED: 1/2 NS 1000ml IV ONE (10:17)
--- NOTE | 2017-06-28 10:34 | General Progress Note ---
Assessment/Plan Status: stable Assessment/Plan status: advanced CKD , likely ESRD HTN DM Plan: IV Venofer- permacath for HD Renal diet Anemia anderson Keep BP and BS in check Echo pending- Left ventricular ejection fraction estimated to be 65 -70%. kidney SHI -reviewed Subjective ROS Limited/Unobtainable: No Constitutional: Reports: malaise, weakness Allergies: Coded Allergies: LABETALOL (Verified Allergy, Unknown, cp, 09/08/16) Mushroom (Verified Allergy, Unknown, 06/27/17) Objective Last 24 Hour Vital Signs Date Time Temp Pulse Resp B/P (MAP) Pulse Ox O2 Delivery O2 Flow Rate FiO2 06/28/17 08:47 67 161/88 06/28/17 08:46 67 161/88 06/28/17 08:00 68 06/28/17 08:00 98.0 67 20 161/88 100 Room Air 06/28/17 04:24 97.9 69 20 160/79 100 Room Air 06/28/17 04:00 62 06/28/17 00:00 65 06/27/17 23:44 97.9 63 20 153/84 97 Room Air 06/27/17 20:29 74 118/72 06/27/17 20:00 65 06/27/17 20:00 97.9 74 20 148/78 99 Room Air 06/27/17 19:30 98.7 71 18 100/72 100 Room Air 06/27/17 16:00 63 06/27/17 16:00 97.7 68 20 119/60 100 Room Air 06/27/17 12:00 97.7 52 20 114/59 96 Room Air 06/27/17 12:00 51 Laboratory Tests 06/27/17 12:35: Folate [Pending] 06/27/17 20:30: White Blood Count 7.6, Red Blood Count 2.47L, Hemoglobin 7.8L, Hematocrit 24.7L , Mean Corpuscular Volume 100H, Mean Corpuscular Hemoglobin 31.6H, Mean Corpuscular Hemoglobin Concent 31.6L, Red Cell Distribution Width 13.6, Platelet Count 178, Mean Platelet Volume 5.8L, Neutrophils (%) (Auto) , Lymphocytes (%) (Auto) , Monocytes (%) (Auto) , Eosinophils (%) (Auto) , Basophils (%) (Auto) , Differential Total Cells Counted 100, Neutrophils % ( Manual) 75, Lymphocytes % (Manual) 20, Monocytes % (Manual) 5, Eosinophils % ( Manual) 0, Basophils % (Manual) 0, Band Neutrophils 0, Platelet Estimate Adequate, Platelet Morphology Normal, Hypochromasia Occasional 06/28/17 07:10: White Blood Count 6.9, Red Blood Count 2.43L, Hemoglobin 8.1L, Hematocrit 24.0L , Mean Corpuscular Volume 99, Mean Corpuscular Hemoglobin 33.5H, Mean Corpuscular Hemoglobin Concent 34.0, Red Cell Distribution Width 13.2, Platelet Count 183, Mean Platelet Volume 6.7, Neutrophils (%) (Auto) 66.3, Lymphocytes (% ) (Auto) 22.4, Monocytes (%) (Auto) 8.4, Eosinophils (%) (Auto) 2.3, Basophils ( %) (Auto) 0.6, Sodium Level 140, Potassium Level 5.7H, Chloride Level 107, Carbon Dioxide Level 22, Anion Gap 11, Blood Urea Nitrogen 67H, Creatinine 5.4H , Estimat Glomerular Filtration Rate 13.3, Glucose Level 108H, Uric Acid 8.4H, Calcium Level 8.5L, Phosphorus Level 4.7, Magnesium Level 2.1, Total Bilirubin 0.3, Aspartate Amino Transf (AST/SGOT) 10, Alanine Aminotransferase (ALT/SGPT) 8 , Alkaline Phosphatase 101, C-Reactive Protein, Quantitative < 0.3, Pro-B-Type Natriuretic Peptide 373H, Total Protein 6.8, Albumin 3.7, Globulin 3.1, Albumin/ Globulin Ratio 1.1 Height (Feet): 5 Height (Inches): 5.00 Weight (Pounds): 140 General Appearance: no apparent distress Cardiovascular: normal rate Respiratory/Chest: decreased breath sounds Objective no signs of CHF ABDOUL PINEDA Jun 28, 2017 10:34
[2017-06-28] MEDS ORDERED: Flu Vaccine Quadrivalent 0.5ml IM ONE (11:40)
[2017-06-28] MEDS ORDERED: Heparin Sod 1000 units/ml 10ml ONE (11:59)
[2017-06-28 12:00] VITALS: BP 176/79
[2017-06-28] MEDS ORDERED: Lidocaine 2% 20mg/ml/Epi 0.005mg/ml 20ml vial INJ ONE (12:00)
[2017-06-28] MEDS ORDERED: Heparin Sod 1000 units/ml 10ml INJ ONE (12:00)
[2017-06-28] MEDS ORDERED: Heparin 2000 units/Ns 1000ml INJ ONE (12:00)
[2017-06-28 12:01] VITALS: BP 211/106
[2017-06-28 15:38] LABS: CREATININE 5.4 mg/dL (0.7-1.2); GLOMERULAR FILTRATION RATE 13.3 mL/min (>60)
[2017-06-28 15:53] LABS: CREATININE CLEARANCE,URINE 10 mL/min (71-151)
[2017-06-28 16:00] VITALS: BP 128/65
--- NOTE | 2017-06-28 16:29 | Discharge Summary ---
Discharge Summary Hospital Course Date of Admission Jun 26, 2017 at 01:05 Date of Discharge 06/28/17 Admitting Diagnosis Hyperkalemia Reason for Hospitalization: Hyperkalemia HPI 57yo male with pmh of CKD, HTN, COPD who presents with abnormal labs. Pt had labs done by outpatient doctors and he was instructed to presented to ER given elevated potassium level. Pt denies chest pain, SOB, f/c, n/c, d/c, abd pain. Pt states he makes abt 1/2L of urine a day. C/o generalized weakness. Pt states he is abt to be set up for a fistula soon to initiate dialysis. Consultations Nephrology Hospital Course Pt was admitted and seen by nephrology. His K improved w/ treatment but pt continued to have hyperkalemia and nephrology recommended initiation of dialysis. However, pt declined. He is to follow-up with his outpatient instrument and control technician for further management. Discharge Medications Continued Medications: Amlodipine-Atorvastatin 10-20 Mg (Amlodipine-Atorvastatin 10-20 Mg) 1 Each Tablet 1 TAB ORAL DAILY, TAB Aspirin* (Aspir 81*) 81 Mg Tablet.dr 81 MG ORAL DAILY, TAB Atorvastatin Calcium* (Lipitor*) 80 Mg Tablet 80 MG ORAL BEDTIME, TAB Calcitriol (Calcitriol) 0.5 Mcg Capsule 0.5 MCG PO, CAP Ferrous Sulfate* (Ferrous Sulfate*) 325 Mg Tablet 325 MG ORAL TWICE A DAY, #60 TAB 0 Refills Furosemide (Furosemide) 40 Mg/5 Ml Solution 40 MG ORAL DAILY, ML Metoprolol Tartrate* (Metoprolol Tartrate*) 50 Mg Tablet 50 MG ORAL EVERY 12 HOURS, TAB Sodium Polystyrene Sulfonate (Sodium Polystyrene Sulfonate) 15 Gm/60 Ml Oral.susp 15 GM PO, ML Discharge Condition Upon Discharge: stable Discharge Disposition Patient was discharged to home Discharge Diagnoses: (1) Hyperkalemia (2) CKD (chronic kidney disease) stage 5, GFR less than 15 ml/min (3) DM2 (diabetes mellitus, type 2) Linda Cardoso M.D. Jun 28, 2017 16:29
[2017-06-28] MEDS ORDERED: Epogen (for non ESRD use) SUBQ SCH (21:00)
[2017-06-28] MEDS ORDERED: Iron Sucrose 200 MG in NS 110 ML IV ONE (21:00)
[2017-06-29] MEDS ORDERED: Dyna-Hex 2% Top Sol 2oz TOPIC SCH (09:00)
[2017-07-13 06:30] LABS: HEPATITIS BE ANTIGEN/CEDARS NONREACTIVE (NONREACTIVE)
--- NOTE | 2017-07-18 17:43 | Cardiology Report ---
APPROVED REPORT EKG Measurement Heart [id number] Sinus rhythm with premature atrial complexes ST elevation, consider early repolarization, pericarditis, or injury Abnormal ECG
== END 2017-06-28 16:45 | disposition home or self-care (01) | DRG 425 ==
LOC: EMR 22:30 → 3E 06-26 01:05 → EDBEDREQSVC 06-26 03:05 → EDBEDREQ 06-26 03:15 → 2E 06-26 06:31
PROC: 30233N1 Transfusion of Nonautologous Red Blood Cells into Peripheral Vein, Percutaneous Approach (ICD-10-PCS; principal; 2017-06-27)
DX: E87.5 Hyperkalemia (principal); E11.22 Type 2 diabetes mellitus with diabetic chronic kidney disease; I12.0 Hypertensive chronic kidney disease with stage 5 chronic kidney disease or end stage renal disease; N18.5 Chronic kidney disease, stage 5; D62 Acute posthemorrhagic anemia; E11.649 Type 2 diabetes mellitus with hypoglycemia without coma; R56.9 Unspecified convulsions; J44.9 Chronic obstructive pulmonary disease, unspecified; E11.311 Type 2 diabetes mellitus with unspecified diabetic retinopathy with macular edema; Z88.8 Allergy status to other drugs, medicaments and biological substances
CPT/HCPCS: 36415; 71010; 76775; 80048; 80053; 80061; 81001; 81050; 82550; 82553; 82575; 82607; 82728; 82746; 82962; 82977; 83036; 83540; 83550; 83735; 83880; 84100; 84156; 84443; 84484; 84550; 85007; 85025; 85610; 85730; 86140; 86706; 86707; 86803; 86850; 86900; 86901; 86920; 87040; 90630; 93005; 93306; 99285; J1815

== ENCOUNTER 2017-07-24 05:19 | Inpatient (IN) | payer OTHER ==
[2017-07-24] VITALS (7 sets, daily range): BP systolic 120–197; BP diastolic 62–97
[~2017-07-24] VITALS: Ht 165.1 cm; Wt 64.4 kg
[~2017-07-24 05:19] MED LIST changes: +AMLODIPINE-ATO1 EAC4 ORAL; +ASPIR 8181 MG ORAL; +ATORVASTATIN CA80 MG ORAL; +CALCITRIOL0.5 MCG PO; +FERROUS SULFAT325 MG ORAL; +FUROSEMIDE40 MG/5 ML ORAL; +METOPROLOL TART50 M1 ORAL; +SODIUM POL15 GM/60 M PO
[2017-07-24] MEDS ORDERED: Acetaminophen 500mg (ES) tab ORAL ONE (05:30)
[2017-07-24] MEDS ORDERED: Sodium Chloride 500ML 500 ML IVPB ONE ×2 (05:30→07:30)
[2017-07-24] MEDS ORDERED: LANTUS SOL100 UNIT/1 SUBQ (05:31)
--- NOTE | 2017-07-24 06:06 | Emergency Room Report ---
History of Present Illness General Chief Complaint: General Complaint Source: Patient (DAVID MARTINEZ M.D.) Present Illness HPI This is a 57-year-old male with history of diabetes with a normal hemoglobin A1c. Also history of renal insufficiency but has not started dialysis yet. He presents with chief complaint of low blood sugar. He did not check his blood sugar. He said has a fever and was shaking chills. Nausea but no vomiting. Fever and chills. No diarrhea. No abdominal pain. Coughing is productive of sputum. It started about an hour ago. (DAVID MARTINEZ M.D.) Allergies: Coded Allergies: LABETALOL (Verified Allergy, Unknown, cp, 09/08/16) Mushroom (Verified Allergy, Unknown, 06/27/17) Patient History Past Medical History: see triage record, old chart reviewed, DM, renal disease Past Surgical History: other Pertinent Family History: none Social History: Denies: smoking Immunizations: other Reviewed Nursing Documentation: PMH: Agreed, PSxH: Agreed (DAVID MARTINEZ M.D.) Nursing Documentation-PMH Hx Cardiac Problems: Yes - CHF Hx Hypertension: Yes Hx Diabetes: Yes - DIABETIC RETINOPATHY Hx Cancer: No Hx Gastrointestinal Problems: No Hx Dialysis: No - renal failure Hx Neurological Problems: No (DAVID MARTINEZ M.D.) Review of Systems Constitutional: Reports: chills, fever Eye: Denies: eye pain, blurred vision ENT: Denies: ear pain, nose congestion, throat swelling Respiratory: Denies: cough, shortness of breath Cardiovascular: Denies: chest pain, palpitations Gastrointestinal: Denies: abdominal pain, diarrhea, nausea, vomiting Musculoskeletal: Denies: back pain, joint pain Skin: Denies: rash Neurological: Denies: headache, numbness Endocrine: Denies: increased thirst, increased urine Hematologic/Lymphatic: Denies: easy bruising All Other Systems: negative except mentioned in HPI (DAVID MARTINEZ M.D.) Physical Exam Vital Signs Date Time Temp Pulse Resp B/P (MAP) Pulse Ox O2 Delivery O2 Flow Rate FiO2 07/24/17 05:25 98.6 118 30 197/78 100 Room Air vitals with tachycardia Sp02 EP Interpretation: reviewed, normal General Appearance: no apparent distress, alert, other - Ill-appearing Head: normocephalic, atraumatic Eyes: bilateral eye PERRL, bilateral eye EOMI ENT: hearing grossly normal, normal pharynx Neck: full range of motion, supple, no meningismus Respiratory: chest non-tender, lungs clear, normal breath sounds Cardiovascular #1: regular rate, rhythm, no murmur Gastrointestinal: normal bowel sounds, non tender, no mass, no organomegaly, no bruit, non-distended Musculoskeletal: back normal, gait/station normal, normal range of motion Neurologic: alert, oriented x3 Psychiatric: mood/affect normal Skin: warm/dry, other - Warm to the touch (DAVID MARTINEZ M.D.) Medical Decision Making Diagnostic Impression: Primary Impression: Weakness generalized Additional Impressions: Hypoglycemia DM2 (diabetes mellitus, type 2) Chronic renal failure ER Course Patient presents with symptoms consistent with chills and rigors. Blood sugar normal here. Labs pending. X-rays unremarkable. I will sign this patient out to Dr. Jose for final disposition. (DAVID MARTINEZ M.D.) ER Course Received signout 57-year-old male, hypertension, diabetes, chronic renal failure With generalized weakness I spoke the patient extensively, he states that he was worried about his blood sugars, he takes insulin, blood sugars are normal hearing emergency room Also states that he has been under a lot of stress as there has been a family member who had Denying any fevers but states that he is more nervous than normal States that he currently feels well, patient's vitals are normal, not tachycardic, blood pressure normal, he is afebrile rectally Labs reveal mildly increased lactate at 2.8 Patient already has known ckd, followed up with the organic preparation analyst and is going to be getting dialysis in the next few weeks Potassium is 5 Patient given 1 L of fluids Repeat lactic acid came down However patient still with persistent hypoglycemia, critically low, amp of D50 given Patient given tray Patient states that he is still not feeling well, in general weakness Will admit to telemetry unit D/W Dr Lloyd (Mara Jose M.D.) EKG Diagnostic Results Rate: normal, tachycardiac Rhythm: NSR ST Segments: no acute changes (DAVID MARTINEZ M.D.) Rhythm Strip Diag. Results Rhythm Strip Time: 06:06 EP Interpretation: yes Rate: 100 Rhythm: NSR, no PVC's, no ectopy (DAVID MARTINEZ M.D.) Chest X-Ray Diagnostic Results Chest X-Ray Diagnostic Results : Chest X-Ray Ordered: Yes # of Views/Limited/Complete: 1 View Indication: Shortness of Breath EP Interpretation: Yes Interpretation: no consolidation, no effusion, no pneumothorax Impression: No acute disease Electronically Signed by: Electronically signed by David Martinez MD (DAVID MARTINEZ M.D.) Last Vital Signs Date Time Temp Pulse Resp B/P (MAP) Pulse Ox O2 Delivery O2 Flow Rate FiO2 07/24/17 05:25 98.6 118 30 197/78 100 Room Air Status: improved (DAVID MARTINEZ M.D.) Disposition: ADMITTED INPATIENT Condition: Serious DAVID MARTINEZ M.D. Jul 24, 2017 06:06 Mara Jose M.D. Jul 24, 2017 07:50
[2017-07-24 06:10] LABS: HEMATOCRIT 27.2 % (42.0-52.0); HEMOGLOBIN 8.9 G/DL (14.2-18.0); MEAN CORPUSCULAR VOLUME 100 FL (80-99); PLATELET COUNT 197 K/UL (150-450); RED BLOOD COUNT 2.73 M/UL (4.70-6.10); RED CELL DISTRIBUTION WIDTH 13.7 % (11.6-14.8); WHITE BLOOD COUNT 4.3 K/UL (4.8-10.8)
[2017-07-24 06:13] LABS: APPEARANCE,URINE CLEAR; BILIRUBIN, URINE NEGATIVE (NEGATIVE); COLOR,URINE PALE YELLOW; GLUCOSE, URINE (UA) NEGATIVE (NEGATIVE); KETONES,URINE NEGATIVE (NEGATIVE); LEUKOCYTE ESTERASE ,URINE 1+ (NEGATIVE); NITRITE,URINE NEGATIVE (NEGATIVE); PH,URINE 5 (4.5-8.0); PROTEIN,URINE 2+ (NEGATIVE); UROBILINOGEN,URINE NORMAL MG/DL (0.0-1.0)
[2017-07-24 06:43] LABS: ALANINE AMINOTRANSFERASE 19 U/L (12-78); ALBUMIN 4.1 G/DL (3.4-5.0); ALBUMIN/GLOBULIN RATIO 0.9 (1.0-2.7); ALKALINE PHOSPHATASE 118 U/L (46-116); ANION GAP 17 mmol/L (5-15); ASPARTATE AMINO TRANSFERASE 13 U/L (15-37); BILIRUBIN,TOTAL 0.4 MG/DL (0.2-1.0); BLOOD UREA NITROGEN 58 mg/dL (7-18); CARBON DIOXIDE 15 MMOL/L (21-32); CHLORIDE 114 MMOL/L (98-107); CKMB 9.8 NG/ML (0.0-3.6); CREATINE KINASE 423 U/L (26-308); CREATININE 5.9 MG/DL (0.55-1.30); SODIUM 146 MMOL/L (136-145)
--- NOTE | 2017-07-24 09:55 | Diagnostic Imaging Report ---
Indication: COUGH Technique: One view of the chest Comparison: 06/26/2017 Findings: Lungs and pleural spaces are clear. Heart size is upper limits normal. No significant change Impression: No acute process
--- NOTE | 2017-07-24 10:45 | History & Physical ---
History and Physical History & Physicial 57-year-old male with history of diabetes with a normal hemoglobin A1c. Patient with history of renal insufficiency but not HD dependent. He presents with chief complaint of low blood sugar. He said has a fever and was shaking chills. Patient also with productive sputum Coded Allergies: LABETALOL (Verified Allergy, Unknown, cp, 09/08/16) Mushroom (Verified Allergy, Unknown, 06/27/17) Past Medical History: DM, CKD, diabetic retinopathy, CHF Past Surgical History: other Pertinent Family History: none Social History: Denies: smoking; unemployed Reviewed of systems: as above Physical exam WDWN NAD clear breath sounds bilaterally without rhonchi or wheeze [id number] without MRG NABS nontender no HSM no CCE nonfocal Labs Test 07/24/17 06:00 07/24/17 06:06 07/24/17 08:16 White Blood Count 4.3 K/UL (4.8-10.8) Red Blood Count 2.73 M/UL (4.70-6.10) Hemoglobin 8.9 G/DL (14.2-18.0) Hematocrit 27.2 % (42.0-52.0) Mean Corpuscular Volume 100 FL (80-99) Mean Corpuscular Hemoglobin 32.4 PG (27.0-31.0) Mean Corpuscular Hemoglobin Concent 32.6 G/DL (32.0-36.0) Red Cell Distribution Width 13.7 % (11.6-14.8) Platelet Count 197 K/UL (150-450) Mean Platelet Volume 6.8 FL (6.5-10.1) Neutrophils (%) (Auto) % (45.0-75.0) Lymphocytes (%) (Auto) % (20.0-45.0) Monocytes (%) (Auto) % (1.0-10.0) Eosinophils (%) (Auto) % (0.0-3.0) Basophils (%) (Auto) % (0.0-2.0) Prothrombin Time 10.3 SEC (9.30-11.50) Prothromb Time International Ratio 1.0 (0.9-1.1) Activated Partial Thromboplast Time 21 SEC (23-33) Sodium Level 146 MMOL/L (136-145) Potassium Level 5.0 MMOL/L (3.5-5.1) Chloride Level 114 MMOL/L (98-107) Carbon Dioxide Level 15 MMOL/L (21-32) Anion Gap 17 mmol/L (5-15) Blood Urea Nitrogen 58 mg/dL (7-18) Creatinine 5.9 MG/DL (0.55-1.30) Estimat Glomerular Filtration Rate 12.0 mL/min (>60) Glucose Level 71 MG/DL (74-106) Lactic Acid Level 2.80 mmol/L (0.66-2.22) 0.50 mmol/L (0.66-2.22) Calcium Level 8.0 MG/DL (8.5-10.1) Total Bilirubin 0.4 MG/DL (0.2-1.0) Aspartate Amino Transf (AST/SGOT) 13 U/L (15-37) Alanine Aminotransferase (ALT/SGPT) 19 U/L (12-78) Alkaline Phosphatase 118 U/L (46-116) Total Creatine Kinase 423 U/L (26-308) Creatine Kinase MB 9.8 NG/ML (0.0-3.6) Creatine Kinase MB Relative Index 2.3 Troponin I 0.003 ng/mL (0.000-0.056) Total Protein 8.9 G/DL (6.4-8.2) Albumin 4.1 G/DL (3.4-5.0) Globulin 4.8 g/dL Albumin/Globulin Ratio 0.9 (1.0-2.7) Urine Color Pale yellow Urine Appearance Clear Urine pH 5 (4.5-8.0) Urine Specific [place] 1.010 (1.005-1.035) Urine Protein 2+ (NEGATIVE) Urine Glucose (UA) Negative (NEGATIVE) Urine Ketones Negative (NEGATIVE) Urine Occult Blood 3+ (NEGATIVE) Urine Nitrite Negative (NEGATIVE) Urine Bilirubin Negative (NEGATIVE) Urine Urobilinogen Normal MG/DL (0.0-1.0) Urine Leukocyte Esterase 1+ (NEGATIVE) Urine RBC 5-10 /HPF (0 - 0) Urine WBC 5-10 /HPF (0 - 0) Urine Squamous Epithelial Cells None /LPF (NONE/OCC) Urine Bacteria Few /HPF (NONE) IMPRESSION diabetes CKD hypernatremia CHF PLAN hypotonic fluids monitor blood sugars resume meds dc in CIERA Aguilar Jul 24, 2017 10:45
[2017-07-24] MEDS: NovoLOG Insulin Flexpen SUBQ SCH ×3 (12:17→22:28)
[2017-07-24] MEDS ORDERED: Promethazine/Codeine 5ml UD ORAL PRN (14:45)
[2017-07-24] MEDS: Azithromycin 250mg tab ORAL SCH (15:00)
[2017-07-24] MEDS: Calcitriol 0.5mcg Cap ORAL SCH (16:00)
[2017-07-24] MEDS: Aspirin Baby 81mg ORAL SCH (16:00)
[2017-07-24] MEDS: Furosemide 40mg tab ORAL SCH (17:45)
[2017-07-24] MEDS ORDERED: Clindamycin 150mg cap ORAL SCH (18:00)
[2017-07-24] MEDS ORDERED: Zolpidem 5mg tab ORAL PRN (21:00)
[2017-07-24] MEDS: Metoprolol Tartrate 50mg tab ORAL SCH (22:25)
[2017-07-24] MEDS: Atorvastatin 80mg tab ORAL SCH (22:25)
[2017-07-24] MEDS: Levemir Flexpen SUBQ SCH (22:28)
[2017-07-25] VITALS: BP 158/78
[2017-07-25 04:00] VITALS: BP 148/75
[2017-07-25] MEDS: NovoLOG Insulin Flexpen SUBQ SCH ×4 (06:30→21:25)
[2017-07-25 08:00] VITALS: BP 154/87
[2017-07-25 08:46] LABS: HEMATOCRIT 22.9 % (42.0-52.0); HEMOGLOBIN 7.9 G/DL (14.2-18.0); MEAN CORPUSCULAR VOLUME 100 FL (80-99); PLATELET COUNT 171 K/UL (150-450); RED CELL DISTRIBUTION WIDTH 13.7 % (11.6-14.8); WHITE BLOOD COUNT 8.2 K/UL (4.8-10.8)
[2017-07-25] MEDS: Furosemide 40mg tab ORAL SCH (08:49)
[2017-07-25] MEDS: Aspirin Baby 81mg ORAL SCH (08:49)
[2017-07-25] MEDS: Calcitriol 0.5mcg Cap ORAL SCH (08:49)
[2017-07-25] MEDS: Azithromycin 250mg tab ORAL SCH (08:50)
[2017-07-25] MEDS: Metoprolol Tartrate 50mg tab ORAL SCH ×2 (08:50→21:21)
[2017-07-25] MEDS ORDERED: Sodium Polystyrene Sulfonate 15gm Powder ORAL SCH (09:00)
[2017-07-25 09:05] LABS: ANION GAP 10 mmol/L (5-15); BLOOD UREA NITROGEN 57 mg/dL (7-18); CALCIUM 7.8 MG/DL (8.5-10.1); CARBON DIOXIDE 19 MMOL/L (21-32); CHLORIDE 112 MMOL/L (98-107); CREATININE 5.3 MG/DL (0.55-1.30); POTASSIUM 5.1 MMOL/L (3.5-5.1); SODIUM 141 MMOL/L (136-145)
[2017-07-25] MEDS ORDERED: 1/2 NS 1000ml IV ONE (11:08)
[2017-07-25] MEDS ORDERED: Azithromycin 250mg tab ORAL SCH (11:30)
[2017-07-25 12:00] VITALS: BP 148/80
--- NOTE | 2017-07-25 12:13 | General Progress Note ---
Assessment/Plan Assessment/Plan IMPRESSION diabetes CKD hypernatremia CHF anemia PLAN hypotonic fluids transfuse 2u prbc monitor blood sugars resume meds dc in am Subjective Allergies: Coded Allergies: LABETALOL (Verified Allergy, Unknown, cp, 09/08/16) Mushroom (Verified Allergy, Unknown, 06/27/17) Subjective care noted and reviewed anemic Objective Last 24 Hour Vital Signs Date Time Temp Pulse Resp B/P (MAP) Pulse Ox O2 Delivery O2 Flow Rate FiO2 07/25/17 08:50 64 154/87 07/25/17 08:49 64 154/87 07/25/17 08:00 97.5 64 20 154/87 98 Room Air 07/25/17 04:00 71 07/25/17 04:00 97.7 74 18 148/75 100 Room Air 07/25/17 00:00 98.2 73 18 158/78 100 Room Air 07/25/17 00:00 75 07/24/17 22:25 80 162/81 07/24/17 20:02 97.9 80 18 162/81 99 Room Air 07/24/17 19:35 76 07/24/17 16:00 71 07/24/17 16:00 97.5 71 21 141/68 98 Room Air Laboratory Tests 07/25/17 07:40: White Blood Count 8.2#, Red Blood Count 2.30L, Hemoglobin 7.9L, Hematocrit 22.9L , Mean Corpuscular Volume 100H, Mean Corpuscular Hemoglobin 34.3H, Mean Corpuscular Hemoglobin Concent 34.4, Red Cell Distribution Width 13.7, Platelet Count 171, Mean Platelet Volume 6.9, Neutrophils (%) (Auto) , Lymphocytes (%) ( Auto) , Monocytes (%) (Auto) , Eosinophils (%) (Auto) , Basophils (%) (Auto) , Differential Total Cells Counted 100, Neutrophils % (Manual) 82H, Lymphocytes % (Manual) 16L, Monocytes % (Manual) 1, Eosinophils % (Manual) 1, Basophils % ( Manual) 0, Band Neutrophils 0, Platelet Estimate Adequate, Platelet Morphology Normal, Sodium Level 141, Potassium Level 5.1, Chloride Level 112H, Carbon Dioxide Level 19L, Anion Gap 10, Blood Urea Nitrogen 57H, Creatinine 5.3H, Estimat Glomerular Filtration Rate 13.6, Glucose Level 86, Calcium Level 7.8L Height (Feet): 5 Height (Inches): 5.00 Weight (Pounds): 142 Objective WDWN NAD clear breath sounds bilaterally without rhonchi or wheeze [id number] without MRG NABS nontender no HSM no CCE nonfocal CIERA GUERRERO Jul 25, 2017 12:13
[2017-07-25 16:00] VITALS: BP 141/78
--- NOTE | 2017-07-25 18:35 | Cardiology Report ---
APPROVED REPORT EKG Measurement Heart [id number] RI 182P78 [id number] Sinus tachycardia Possible Left atrial enlargement Borderline ECG
--- NOTE | 2017-07-25 18:35 | Cardiology Report ---
APPROVED REPORT EKG Measurement Heart [id number] MA 182P78 [id number] Sinus tachycardia Possible Left atrial enlargement Borderline ECG
--- NOTE | 2017-07-25 18:35 | Cardiology Report ---
APPROVED REPORT EKG Measurement Heart [id number] [place] 182P78 [id number] Sinus tachycardia Possible Left atrial enlargement Borderline ECG
[2017-07-25 20:00] VITALS: BP 165/74
[2017-07-25] MEDS: Atorvastatin 80mg tab ORAL SCH (21:21)
[2017-07-25] MEDS: Levemir Flexpen SUBQ SCH (21:24)
[2017-07-26] VITALS (10 sets, daily range): BP systolic 139–198; BP diastolic 73–91
[2017-07-26] MEDS: NovoLOG Insulin Flexpen SUBQ SCH ×2 (06:18→12:25)
[2017-07-26] MEDS ORDERED: Albuterol/Ipratropium 3ml neb ONE (07:29)
--- NOTE | 2017-07-26 07:59 | General Progress Note ---
Assessment/Plan Assessment/Plan IMPRESSION diabetes CKD hypernatremia CHF anemia PLAN dc home add hydralazine maintain home meds likely can hold lasix patient aware f/u with nephro and labs Subjective Allergies: Coded Allergies: LABETALOL (Verified Allergy, Unknown, cp, 09/08/16) Mushroom (Verified Allergy, Unknown, 06/27/17) Subjective care noted and reviewed anemic completing transfusion bp elevated Objective Last 24 Hour Vital Signs Date Time Temp Pulse Resp B/P (MAP) Pulse Ox O2 Delivery O2 Flow Rate FiO2 07/26/17 04:00 98.0 62 20 161/74 100 Room Air 07/26/17 02:57 187/83 07/26/17 02:30 187/83 07/26/17 00:00 98.2 67 20 179/89 99 Room Air 07/26/17 00:00 66 07/25/17 21:21 66 165/74 07/25/17 20:00 64 07/25/17 20:00 98.6 66 18 165/74 99 Room Air 07/25/17 16:00 97.7 70 20 141/78 99 Room Air 07/25/17 16:00 71 07/25/17 12:00 62 07/25/17 12:00 97.7 60 21 148/80 97 Room Air 07/25/17 08:50 64 154/87 07/25/17 08:49 64 154/87 07/25/17 08:00 97.5 64 20 154/87 98 Room Air 07/25/17 08:00 68 Height (Feet): 5 Height (Inches): 5.00 Weight (Pounds): 142 Objective WDWN NAD clear breath sounds bilaterally without rhonchi or wheeze [id number] without MRG NABS nontender no HSM no CCE nonfocal CIERA GUERRERO Jul 26, 2017 07:59
[2017-07-26] MEDS: Calcitriol 0.5mcg Cap ORAL SCH (09:03)
[2017-07-26] MEDS: Azithromycin 250mg tab ORAL SCH (09:03)
[2017-07-26] MEDS: Aspirin Baby 81mg ORAL SCH (09:04)
[2017-07-26] MEDS: Furosemide 40mg tab ORAL SCH (10:52)
[2017-07-26] MEDS: Metoprolol Tartrate 50mg tab ORAL SCH (10:53)
--- NOTE | 2017-07-26 11:19 | Diagnostic Imaging Report ---
APPROVED REPORT CPT Code: 10399 Present Symptoms Lower Extremity Pain: Bilateral BILATERAL: Imaging reveals a patent deep venous system bilaterally. There is no evidence of thrombus within the femoral, popliteal or tibial segments. The greater saphenous veins are also within normal limits. Doppler indicates normal spontaneous flow within these segments.
--- NOTE | 2017-07-26 11:19 | Diagnostic Imaging Report ---
APPROVED REPORT CPT Code: 50886 Present Symptoms Lower Extremity Pain: Bilateral BILATERAL: Imaging reveals a patent deep venous system bilaterally. There is no evidence of thrombus within the femoral, popliteal or tibial segments. The greater saphenous veins are also within normal limits. Doppler indicates normal spontaneous flow within these segments.
--- NOTE | 2017-07-26 11:19 | Diagnostic Imaging Report ---
APPROVED REPORT CPT Code: 24479 Present Symptoms Lower Extremity Pain: Bilateral BILATERAL: Imaging reveals a patent deep venous system bilaterally. There is no evidence of thrombus within the femoral, popliteal or tibial segments. The greater saphenous veins are also within normal limits. Doppler indicates normal spontaneous flow within these segments.
[2017-07-26 12:45] LABS: BASOPHILS % (AUTO) 0.4 % (0.0-2.0); EOSINOPHILS % (AUTO) 1.7 % (0.0-3.0); HEMATOCRIT 28.9 % (42.0-52.0); HEMOGLOBIN 9.7 G/DL (14.2-18.0); MEAN CORPUSCULAR VOLUME 96 FL (80-99); MONOCYTES % (AUTO) 8.3 % (1.0-10.0); NEUTROPHILS % (AUTO) 73.6 % (45.0-75.0); PLATELET COUNT 167 K/UL (150-450); RED BLOOD COUNT 3.01 M/UL (4.70-6.10); RED CELL DISTRIBUTION WIDTH 14.6 % (11.6-14.8); WHITE BLOOD COUNT 7.5 K/UL (4.8-10.8)
[2017-07-26 13:29] LABS: ALANINE AMINOTRANSFERASE 16 U/L (12-78); ALBUMIN 3.2 G/DL (3.4-5.0); ALBUMIN/GLOBULIN RATIO 0.8 (1.0-2.7); ALKALINE PHOSPHATASE 97 U/L (46-116); ANION GAP 10 mmol/L (5-15); ASPARTATE AMINO TRANSFERASE 13 U/L (15-37); BILIRUBIN,TOTAL 1.1 MG/DL (0.2-1.0); BLOOD UREA NITROGEN 66 mg/dL (7-18); CALCIUM 8.1 MG/DL (8.5-10.1); CARBON DIOXIDE 18 MMOL/L (21-32); CHLORIDE 111 MMOL/L (98-107); CREATININE 5.1 MG/DL (0.55-1.30); POTASSIUM 5.1 MMOL/L (3.5-5.1); SODIUM 139 MMOL/L (136-145)
[2017-07-26 13:31] LABS: BILIRUBIN,DIRECT 0.2 MG/DL (0.0-0.3)
[2017-07-26] MEDS ORDERED: NS 275ml ONE (13:59)
[2017-07-26] MEDS ORDERED: Tubing Blood Filter IV ONE (13:59)
--- NOTE | 2017-07-27 11:10 | Discharge Summary ---
Discharge Summary Hospital Course Date of Admission Jul 24, 2017 at 08:52 Date of Discharge Jul 26, 2017 at 14:00 Admitting Diagnosis ACUTE RENAL FAILURE MARGARITA Jackson is a 57 year old male who was admitted on Jul 24, 2017 at 08:52 for Acute Renal Failure Hospital Course dc summary #[id number] Discharge Condition Upon Discharge: stable Discharge Disposition Patient was discharged to Home (01) Discharge Diagnoses: Discharge Instructions Discharge Instructions Special Instructions I have been assigned to complete a D/C Summary on this account. I was not involved in the patient management Isabel Posey NP (Vanchtein) Jul 27, 2017 11:10
--- NOTE | 2017-07-27 11:10 | Discharge Summary ---
Discharge Summary Hospital Course Date of Admission Jul 24, 2017 at 08:52 Date of Discharge Jul 26, 2017 at 14:00 Admitting Diagnosis ACUTE RENAL FAILURE MARGARITA Jackson is a 57 year old male who was admitted on Jul 24, 2017 at 08:52 for Acute Renal Failure Hospital Course dc summary #[id number] Discharge Condition Upon Discharge: stable Discharge Disposition Patient was discharged to Home (01) Discharge Diagnoses: Discharge Instructions Discharge Instructions Special Instructions I have been assigned to complete a D/C Summary on this account. I was not involved in the patient management Isabel Posey NP (Vanchtein) Jul 27, 2017 11:10
--- NOTE | 2017-07-27 11:10 | Discharge Summary ---
Discharge Summary Hospital Course Date of Admission Jul 24, 2017 at 08:52 Date of Discharge Jul 26, 2017 at 14:00 Admitting Diagnosis ACUTE RENAL FAILURE MARGARITA Jackson is a 57 year old male who was admitted on Jul 24, 2017 at 08:52 for Acute Renal Failure Hospital Course dc summary #[id number] Discharge Condition Upon Discharge: stable Discharge Disposition Patient was discharged to Home (01) Discharge Diagnoses: Discharge Instructions Discharge Instructions Special Instructions I have been assigned to complete a D/C Summary on this account. I was not involved in the patient management Isabel Posey NP (Vanchtein) Jul 27, 2017 11:10
--- NOTE | 2017-07-27 22:15 | Discharge Summary 2 SIG ---
DATE OF ADMISSION: 07/24/2017 DATE OF DISCHARGE: 07/26/2017 REASON FOR ADMISSION: 57 years old male with history of diabetes, diabetic retinopathy, chronic kidney disease, not on hemodialysis yet, and congestive heart failure, presented with episode of hypoglycemia. He also reported fever, chills, nausea, and cough at home. No vomiting. No diarrhea. No abdominal pain. He reported generalized weakness. Workup in the emergency room revealed elevated blood pressure of 197/78 and tachycardia- 118. The patient was anemic. Hemoglobin- 8.9, hematocrit- 27.2, no leukocytosis. Sodium elevated at 146. BUN and creatinine consistent with known history of chronic renal failure. BUN -58 and creatinine- 5.9. Troponin was negative. LFT were stable. EKG showed sinus tachycardia, no acute ischemic changes. Chest x-ray revealed no acute cardiopulmonary pathology. The patient was admitted for further management. HOSPITAL STAY: The patient was admitted. Home medications were resumed. Supplemental oxygen was provided as needed to keep saturation above 92%. Pulmonary toilet was provided as needed. Chest x-ray as mentioned above was negative. Antitussives provided as needed. The patient was on diuretic for congestive heart failure. Electrolytes and renal parameters were closely monitored along with intake and output. Blood pressure regimen was titrated and optimized. Blood sugar was managed with sliding scale of short acting insulin and Levemir. Doses optimized to avoid future hypoglycemia. Hypernatremia was treated with hypotonic solution. Sodium down to 139. Venous duplex of bilateral lower extremities was negative. The next day patient became more anemic with a hemoglobin -7.9 and hematocrit - 22.9. The patient undergone transfusion of two units of packed red blood cells. Next day, the hemoglobin - 9.7 and hematocrit -28.9. The patient was stable to return back home. Follow up with the primary medical doctor. FINAL DIAGNOSES: 1. Hypoglycemia. 2. Diabetes mellitus. 3. Chronic kidney disease. 4. Hypernatremia. 5. Congestive heart failure. 6. Anemia requiring blood transfusion. 7. Hypertension. DISCHARGE MEDICATIONS: See medication list was sent with the patient . DISCHARGE INSTRUCTIONS: The patient was discharged home. Follow up with primary medical doctor next week. Klever Lloyd M.D. I have been assigned to dictate discharge summary on this account and I was not involved in the patient's management. Isabel HardwickCarey almonte DR: HERBERT JOB#: [id number] CC: MARY
== END 2017-07-26 14:00 | disposition home or self-care (01) | DRG 420 ==
LOC: EMR 06:00 → 2E 08:52 → EDBEDREQ 09:20
PROC: 30233N1 Transfusion of Nonautologous Red Blood Cells into Peripheral Vein, Percutaneous Approach (ICD-10-PCS; principal; 2017-07-25)
DX: E11.649 Type 2 diabetes mellitus with hypoglycemia without coma (principal); E87.0 Hyperosmolality and hypernatremia; E11.22 Type 2 diabetes mellitus with diabetic chronic kidney disease; I50.9 Heart failure, unspecified; N18.9 Chronic kidney disease, unspecified; E11.319 Type 2 diabetes mellitus with unspecified diabetic retinopathy without macular edema; Z79.4 Long term (current) use of insulin; Z88.8 Allergy status to other drugs, medicaments and biological substances; I12.9 Hypertensive chronic kidney disease with stage 1 through stage 4 chronic kidney disease, or unspecified chronic kidney disease; D64.9 Anemia, unspecified
CPT/HCPCS: 36415; 71010; 80048; 80053; 81003; 82248; 82550; 82553; 82962; 83605; 84484; 85007; 85025; 85610; 85730; 86850; 86900; 86901; 86920; 87040; 93005; 93970; 99285; J1815; J2405; J7620; S5561

== ENCOUNTER 2017-09-23 18:31 | Emergency (ER) | payer OTHER ==
[~2017-09-23] VITALS: Ht 154.9 cm; Wt 63.5 kg
[~2017-09-23 18:31] MED LIST changes: +LANTUS SOL100 UNIT/1 SUBQ
[2017-09-23] MEDS ORDERED: Sodium Chloride 500ML 500 ML IV ONE (18:42)
[2017-09-23 19:31] VITALS: BP 154/72
[2017-09-23 19:58] LABS: HEMATOCRIT 23.3 % (42.0-52.0); HEMOGLOBIN 7.4 G/DL (14.2-18.0); MEAN CORPUSCULAR VOLUME 98 FL (80-99); PLATELET COUNT 214 K/UL (150-450); RED BLOOD COUNT 2.38 M/UL (4.70-6.10); RED CELL DISTRIBUTION WIDTH 14.2 % (11.6-14.8); WHITE BLOOD COUNT 7.3 K/UL (4.8-10.8)
[2017-09-23 20:13] LABS: ANION GAP 11 mmol/L (5-15); BLOOD UREA NITROGEN 76 mg/dL (7-18); CALCIUM 6.9 MG/DL (8.5-10.1); CARBON DIOXIDE 17 MMOL/L (21-32); CHLORIDE 112 MMOL/L (98-107); CREATININE 6.3 MG/DL (0.55-1.30); POTASSIUM 5.2 MMOL/L (3.5-5.1); SODIUM 140 MMOL/L (136-145)
[2017-09-23] MEDS ORDERED: Sodium Polystyrene Sulfonate 15gm Powder ORAL ONE (20:30)
[2017-09-23 20:33] LABS: ALANINE AMINOTRANSFERASE 17 U/L (12-78); ALBUMIN 3.6 G/DL (3.4-5.0); ALBUMIN/GLOBULIN RATIO 0.8 (1.0-2.7); ALKALINE PHOSPHATASE 108 U/L (46-116); ASPARTATE AMINO TRANSFERASE 14 U/L (15-37); BILIRUBIN,TOTAL 0.3 MG/DL (0.2-1.0); CKMB 10.9 NG/ML (0.0-3.6); CREATINE KINASE 435 U/L (26-308)
[2017-09-23 20:37] VITALS: BP 140/79
--- NOTE | 2017-09-23 21:27 | Emergency Room Report ---
History of Present Illness General Chief Complaint: Abnormal Labs Source: Patient, Medical Record Present Illness HPI 49-year-old male presents ED for evaluation. Patient states he had lab work done today and that his potassium was high. Potassium is 5.9. Patient has history of end-stage renal disease but is currently not on dialysis. Patient was sent to ED for evaluation. Patient states he feels okay. Denies chest pain. Denies dizziness or weakness. No other aggravating or leading factors. Denies any other associated symptoms Allergies: Coded Allergies: LABETALOL (Verified Allergy, Unknown, cp, 09/08/16) Mushroom (Verified Allergy, Unknown, 06/27/17) Patient History Past Medical History: DM, HTN, renal disease Past Surgical History: none Pertinent Family History: none Social History: Denies: smoking, alcohol use, drug use Immunizations: UTD Reviewed Nursing Documentation: PMH: Agreed, PSxH: Agreed Nursing Documentation-PMH Past Medical History: No History, Except For Hx Cardiac Problems: Yes - CHF Hx Hypertension: Yes Hx Diabetes: Yes - DIABETIC RETINOPATHY Hx Cancer: No Hx Gastrointestinal Problems: No Hx Dialysis: No - renal failure Hx Neurological Problems: No Review of Systems All Other Systems: negative except mentioned in HPI Physical Exam Vital Signs Date Time Temp Pulse Resp B/P (MAP) Pulse Ox O2 Delivery O2 Flow Rate FiO2 09/23/17 18:38 97.5 76 18 153/75 98 Room Air Sp02 EP Interpretation: reviewed, normal General Appearance: no apparent distress, alert, GCS 15, non-toxic Head: normocephalic, atraumatic Eyes: bilateral eye normal inspection, bilateral eye PERRL ENT: hearing grossly normal, normal pharynx, no angioedema, normal voice Neck: full range of motion, supple/symm/no masses Respiratory: chest non-tender, lungs clear, normal breath sounds, speaking full sentences Cardiovascular #1: regular rate, rhythm, no edema Cardiovascular #2: 2+ carotid (R), 2+ carotid (L), 2+ radial (R), 2+ radial (L) , 2+ dorsalis pedis (R), 2+ dorsalis pedis (L) Gastrointestinal: normal bowel sounds, non tender, soft, non-distended, no guarding, no rebound Rectal: deferred Genitourinary: normal inspection, no CVA tenderness Musculoskeletal: back normal, gait/station normal, normal range of motion, non- tender Neurologic: alert, oriented x3, responsive, motor strength/tone normal, sensory intact, speech normal Psychiatric: judgement/insight normal, memory normal, mood/affect normal, no suicidal/homicidal ideation Reflexes: 3+ bicep (R), 3+ bicep (L), 3+ tricep (R), 3+ tricep (L), 3+ knee (R) , 3+ knee (L) Skin: normal color, no rash, warm/dry, well hydrated Lymphatic: no adenopathy Medical Decision Making Diagnostic Impression: Primary Impression: CKD (chronic kidney disease) stage 5, GFR less than 15 ml/min Additional Impression: Hyperkalemia ER Course Hospital Course 57-year-old male presents ED or evaluation of hyperkalemia. Asymptomatic Differential diagnoses include: OR/unstable angina, V. tach, bradycardia, hyperkalemia Clinical course Patient placed on stretcher. on cardiac exercise physiologist. After initial history and physical I ordered labs, EKG labs reviewed- potassium 5.2, BUN/Cr 76/6.3 EKG - NSR, no acute ischemic changes interpreted by me Discussed findings with the patient. Patient agrees to discharge. Given Kayexalate in ED. Will followup with his PMD I. I feel this is a highly complex case requiring extensive working including EKG/Rhythm strip, Xray/CT/US, Blood/urine lab work, repeat exams while in ED, and administration of strong opiates/narcotics for pain control, admission to hospital or close patient follow up. Diagnosis - CKD, hyperkalemia Discharged to home. Followup with PMD. Return to ED if symptoms recur or worsen Labs Test 09/23/17 19:30 White Blood Count 7.3 K/UL (4.8-10.8) Red Blood Count 2.38 M/UL (4.70-6.10) Hemoglobin 7.4 G/DL (14.2-18.0) Hematocrit 23.3 % (42.0-52.0) Mean Corpuscular Volume 98 FL (80-99) Mean Corpuscular Hemoglobin 31.1 PG (27.0-31.0) Mean Corpuscular Hemoglobin Concent 31.6 G/DL (32.0-36.0) Red Cell Distribution Width 14.2 % (11.6-14.8) Platelet Count 214 K/UL (150-450) Mean Platelet Volume 5.7 FL (6.5-10.1) Neutrophils (%) (Auto) % (45.0-75.0) Lymphocytes (%) (Auto) % (20.0-45.0) Monocytes (%) (Auto) % (1.0-10.0) Eosinophils (%) (Auto) % (0.0-3.0) Basophils (%) (Auto) % (0.0-2.0) Differential Total Cells Counted 100 Neutrophils % (Manual) 71 % (45-75) Lymphocytes % (Manual) 22 % (20-45) Monocytes % (Manual) 4 % (1-10) Eosinophils % (Manual) 3 % (0-3) Basophils % (Manual) 0 % (0-2) Band Neutrophils 0 % (0-8) Platelet Estimate Adequate Platelet Morphology Normal Hypochromasia 1+ Anisocytosis 1+ Sodium Level 140 MMOL/L (136-145) Potassium Level 5.2 MMOL/L (3.5-5.1) Chloride Level 112 MMOL/L (98-107) Carbon Dioxide Level 17 MMOL/L (21-32) Anion Gap 11 mmol/L (5-15) Blood Urea Nitrogen 76 mg/dL (7-18) Creatinine 6.3 MG/DL (0.55-1.30) Estimat Glomerular Filtration Rate 11.2 mL/min (>60) Glucose Level 125 MG/DL (74-106) Calcium Level 6.9 MG/DL (8.5-10.1) Total Bilirubin 0.3 MG/DL (0.2-1.0) Aspartate Amino Transf (AST/SGOT) 14 U/L (15-37) Alanine Aminotransferase (ALT/SGPT) 17 U/L (12-78) Alkaline Phosphatase 108 U/L (46-116) Total Creatine Kinase 435 U/L (26-308) Creatine Kinase MB 10.9 NG/ML (0.0-3.6) Creatine Kinase MB Relative Index 2.5 Troponin I 0.001 ng/mL (0.000-0.056) Total Protein 8.0 G/DL (6.4-8.2) Albumin 3.6 G/DL (3.4-5.0) Globulin 4.4 g/dL Albumin/Globulin Ratio 0.8 (1.0-2.7) EKG Diagnostic Results Rate: normal Rhythm: NSR ST Segments: no acute changes ASA given to the pt in ED: No Rhythm Strip Diag. Results EP Interpretation: yes Rhythm: NSR, no PVC's, no ectopy Chest X-Ray Diagnostic Results Chest X-Ray Diagnostic Results : Chest X-Ray Ordered: Yes # of Views/Limited/Complete: 1 View Indication: Shortness of Breath EP Interpretation: Yes Interpretation: no pneumothorax, no acute cardiopulmonary disease, other - cardiomegaly. pulmonary congestion Impression: Other - cardiomegaly Electronically Signed by: Electronically signed by Blayne Velazco MD Last Vital Signs Date Time Temp Pulse Resp B/P (MAP) Pulse Ox O2 Delivery O2 Flow Rate FiO2 09/23/17 20:37 97.5 71 16 140/79 98 Room Air Status: improved Disposition: HOME, SELF-CARE Condition: Stable Referrals: [facility],REFERRING (PCP) Patient Instructions: Chronic Kidney Disease, [id number] BLAYNE VELAZCO M.D. Sep 23, 2017 21:27
--- NOTE | 2017-09-24 11:32 | Diagnostic Imaging Report ---
Indication: Dyspnea Comparison: 07/24/2017 A single view chest radiograph was obtained. Findings: Pulmonary vascularity and interstitium are prominent as is heart size. No pleural effusions are seen. IMPRESSION: CHF/interstitial edema
--- NOTE | 2017-10-05 00:11 | Cardiology Report ---
APPROVED REPORT EKG Measurement Heart [id number] Normal sinus rhythm Possible Anterior infarct, age undetermined Abnormal ECG
== END 2017-09-23 20:55 | disposition home or self-care (01) ==
LOC: EMR 20:51
DX: I12.0 Hypertensive chronic kidney disease with stage 5 chronic kidney disease or end stage renal disease (principal); N18.6 End stage renal disease; E87.5 Hyperkalemia; E11.319 Type 2 diabetes mellitus with unspecified diabetic retinopathy without macular edema; I11.0 Hypertensive heart disease with heart failure; I50.9 Heart failure, unspecified
CPT/HCPCS: 36415; 71010; 80053; 82550; 82553; 84484; 85007; 85025; 93005; 96360; 99284; J7040

== ENCOUNTER 2017-11-30 21:27 | Inpatient (IN) | payer OTHER ==
[~2017-11-30] VITALS: Ht 165.1 cm; Wt 61.7 kg
--- NOTE | 2017-11-30 22:14 | Emergency Room Report ---
History of Present Illness General Chief Complaint: Abnormal Labs Source: Patient Present Illness HPI Patient was seen at his clinic at [facility] at approximately 3:00 this afternoon Patient had blood work done He was also they're to recheck his blood pressure as he has started on new medicine He was called at 6:00 told about his potassium being elevated And now presents for further evaluation Denies any chest pain or shortness of breath denies any back or flank pain Patient is not on dialysis however has significant kidney disease Patient says that he has been drinking a lot of orange juice and that is why his potassium is elevated Allergies: Coded Allergies: LABETALOL (Verified Allergy, Unknown, cp, 09/08/16) Mushroom (Verified Allergy, Unknown, 06/27/17) Patient History Past Medical History: see triage record Pertinent Family History: none Reviewed Nursing Documentation: PMH: Agreed, PSxH: Agreed Nursing Documentation-PMH Hx Cardiac Problems: Yes - CHF Hx Hypertension: Yes Hx Diabetes: Yes - DIABETIC RETINOPATHY Hx Cancer: No Hx Gastrointestinal Problems: No Hx Dialysis: No - renal failure Hx Neurological Problems: No Review of Systems All Other Systems: negative except mentioned in HPI Physical Exam Vital Signs Date Time Temp Pulse Resp B/P (MAP) Pulse Ox O2 Delivery O2 Flow Rate FiO2 11/30/17 21:43 97.9 63 16 181/89 99 Room Air 97.9 Sp02 EP Interpretation: reviewed, normal General Appearance: well appearing, no apparent distress Head: normocephalic, atraumatic Eyes: bilateral eye PERRL, bilateral eye EOMI ENT: hearing grossly normal, normal pharynx, TMs + canals normal, uvula midline Neck: full range of motion, supple, no meningismus, no bony tend Respiratory: lungs clear, normal breath sounds, no rhonchi, no respiratory distress, no retraction, no accessory muscle use Cardiovascular #1: normal peripheral pulses, regular rate, rhythm, no edema, no gallop, no JVD, no murmur Gastrointestinal: normal bowel sounds, non tender, soft, no mass, no organomegaly, non-distended, no guarding, no hernia, no pulsatile mass, no rebound Genitourinary: no CVA tenderness Musculoskeletal: normal inspection Neurologic: oriented x3, responsive, linen grader III-XII nml as tested, motor strength/ tone normal, sensory intact Psychiatric: mood/affect normal Skin: normal color, no rash, warm/dry, palpation normal Lymphatic: normal inspection, no adenopathy Medical Decision Making Diagnostic Impression: Primary Impression: Renal failure Additional Impression: Hyperkalemia ER Course Given the patient's presentation previous history and chronic kidney disease blood work was repeated patient's kidney function continues to worsen significantly Potassium level is elevated given these 2 findings patient had acute intervention for the hyperkalemia and requires further inpatient care Labs Test 11/30/17 23:23 White Blood Count 5.5 K/UL (4.8-10.8) Red Blood Count 2.14 M/UL (4.70-6.10) Hemoglobin 7.3 G/DL (14.2-18.0) Hematocrit 21.2 % (42.0-52.0) Mean Corpuscular Volume 99 FL (80-99) Mean Corpuscular Hemoglobin 34.0 PG (27.0-31.0) Mean Corpuscular Hemoglobin Concent 34.3 G/DL (32.0-36.0) Red Cell Distribution Width 12.8 % (11.6-14.8) Platelet Count 151 K/UL (150-450) Mean Platelet Volume 7.2 FL (6.5-10.1) Neutrophils (%) (Auto) % (45.0-75.0) Lymphocytes (%) (Auto) % (20.0-45.0) Monocytes (%) (Auto) % (1.0-10.0) Eosinophils (%) (Auto) % (0.0-3.0) Basophils (%) (Auto) % (0.0-2.0) Sodium Level 141 MMOL/L (136-145) Potassium Level 6.0 MMOL/L (3.5-5.1) Chloride Level 111 MMOL/L (98-107) Carbon Dioxide Level 21 MMOL/L (21-32) Anion Gap 9 mmol/L (5-15) Blood Urea Nitrogen 92 mg/dL (7-18) Creatinine 6.2 MG/DL (0.55-1.30) Estimat Glomerular Filtration Rate 11.3 mL/min (>60) Glucose Level 49 MG/DL (74-106) Calcium Level 8.4 MG/DL (8.5-10.1) Total Bilirubin 0.3 MG/DL (0.2-1.0) Aspartate Amino Transf (AST/SGOT) 18 U/L (15-37) Alanine Aminotransferase (ALT/SGPT) 21 U/L (12-78) Alkaline Phosphatase 128 U/L (46-116) Total Protein 8.3 G/DL (6.4-8.2) Albumin 4.0 G/DL (3.4-5.0) Globulin 4.3 g/dL Albumin/Globulin Ratio 0.9 (1.0-2.7) EKG Diagnostic Results Rate: normal Rhythm: NSR ST Segments: no acute changes Rhythm Strip Diag. Results EP Interpretation: yes Rate: 67 Rhythm: NSR, no PVC's, no ectopy Last Vital Signs Date Time Temp Pulse Resp B/P (MAP) Pulse Ox O2 Delivery O2 Flow Rate FiO2 11/30/17 21:43 97.9 63 16 181/89 99 Room Air 97.9 Status: improved Disposition: ADMITTED INPATIENT Condition: Serious KATHLEEN JOYNER D.O. Nov 30, 2017 22:14
[2017-11-30 22:24] VITALS: BP 181/89
[2017-11-30 23:32] LABS: HEMATOCRIT 21.2 % (42.0-52.0); HEMOGLOBIN 7.3 G/DL (14.2-18.0); MEAN CORPUSCULAR VOLUME 99 FL (80-99); PLATELET COUNT 151 K/UL (150-450); RED BLOOD COUNT 2.14 M/UL (4.70-6.10); RED CELL DISTRIBUTION WIDTH 12.8 % (11.6-14.8); WHITE BLOOD COUNT 5.5 K/UL (4.8-10.8)
[2017-11-30 23:48] LABS: ALANINE AMINOTRANSFERASE 21 U/L (12-78); ALBUMIN/GLOBULIN RATIO 0.9 (1.0-2.7); ALKALINE PHOSPHATASE 128 U/L (46-116); ANION GAP 9 mmol/L (5-15); ASPARTATE AMINO TRANSFERASE 18 U/L (15-37); BILIRUBIN,TOTAL 0.3 MG/DL (0.2-1.0); BLOOD UREA NITROGEN 92 mg/dL (7-18); CALCIUM 8.4 MG/DL (8.5-10.1); CARBON DIOXIDE 21 MMOL/L (21-32); CHLORIDE 111 MMOL/L (98-107); CREATININE 6.2 MG/DL (0.55-1.30); SODIUM 141 MMOL/L (136-145)
[2017-12-01] VITALS (8 sets, daily range): BP systolic 141–187; BP diastolic 67–89
[2017-12-01] MEDS ORDERED: Flu Vaccine Quadrivalent 0.5ml IM ONE (04:45)
[2017-12-01] MEDS ORDERED: Pneumococcal Vaccine 25mcg/0.5ml IM ONE (04:45)
[2017-12-01] MEDS ORDERED: Nitroglycerin Subl 0.4mg tab SL PRN ×2 (04:45→21:15)
--- NOTE | 2017-12-01 09:11 | Consultation ---
History of Present Illness General Date patient seen: Dec 01, 2017 Chief Complaint: Abnormal Labs Present Illness HPI 57 year old male with hx of chronic renal insufficiency , DM, HTN, diabetic nephropathy, was sent to ER by primary physician office because of increased K. some of pt's BP meds were changed recently. Pt looks chronically ill but is asymptomatic at this point. Allergies: Coded Allergies: LABETALOL (Verified Allergy, Unknown, cp, 09/08/16) Mushroom (Verified Allergy, Unknown, 06/27/17) Medication History Scheduled Amlodipine-Atorvastatin 10-20 Mg (Amlodipine-Atorvastatin 10-20 Mg), 10 MG ORAL DAILY, (Reported) Aspirin* (Aspir 81*), 81 MG ORAL DAILY, (Reported) Atorvastatin Calcium* (Lipitor*), 80 MG ORAL BEDTIME, (Reported) Calcitriol (Calcitriol), 0.5 MCG PO DAILY, (Reported) Clindamycin Hcl (Clindamycin Hcl), 300 MG ORAL TID Ferrous Sulfate* (Ferrous Sulfate*), 325 MG ORAL TWICE A DAY, (Reported) Furosemide (Furosemide), 40 MG ORAL BID, (Reported) Insulin Glargine (Lantus), 12 UNITS SUBQ BEDTIME, (Reported) Metoprolol Tartrate* (Metoprolol Tartrate*), 50 MG ORAL EVERY 12 HOURS, ( Reported) Sodium Polystyrene Sulfonate (Sodium Polystyrene Sulfonate), 15 GM PO DAILY, ( Reported) Scheduled PRN Codeine/Promethazine Hcl* (Promethazine-Codeine Syrup*), 5 ML ORAL Q6H PRN for For Cough Patient History Healthcare decision maker Resuscitation status Full Code Advanced Directive on File Past Medical/Surgical History Past Medical/Surgical History: (1) Renal failure (2) CKD (chronic kidney disease) stage 5, GFR less than 15 ml/min (3) DM2 (diabetes mellitus, type 2) Review of Systems Constitutional: Reports: malaise, weakness All Other Systems: negative except mentioned in HPI Physical Exam General Appearance: cachetic Lines, tubes and drains: peripheral HEENT: normocephalic, atraumatic Neck: non-tender, normal alignment Respiratory/Chest: chest wall non-tender, lungs clear Breasts: no masses Cardiovascular/Chest: normal peripheral pulses, normal rate Abdomen: normal bowel sounds Genitourinary/Rectal: normal genital exam Extremities: normal range of motion, non-tender Skin Exam: normal pigmentation Last 24 Hour Vital Signs Date Time Temp Pulse Resp B/P (MAP) Pulse Ox O2 Delivery O2 Flow Rate FiO2 12/01/17 04:10 97.0 71 20 144/72 99 Room Air 97.0 12/01/17 04:00 69 12/01/17 03:45 97.9 68 17 168/76 98 Room Air 97.9 12/01/17 03:35 68 17 168/76 98 Room Air 12/01/17 02:31 57 21 160/67 98 Room Air 12/01/17 00:30 61 16 167/72 99 Room Air 11/30/17 22:24 97.9 63 16 181/89 99 Room Air 97.9 11/30/17 21:43 97.9 63 16 181/89 99 Room Air 97.9 Intake and Output 11/30/17 12/01/17 19:00 07:00 Intake Total 120 ml Output Total 700 ml Balance -580 ml Intake Oral 120 ml Output Urine Total 700 ml # Voids 3 # Bowel Movements 1 Laboratory Tests Test 11/30/17 23:23 White Blood Count 5.5 K/UL (4.8-10.8) Red Blood Count 2.14 M/UL (4.70-6.10) L Hemoglobin 7.3 G/DL (14.2-18.0) L Hematocrit 21.2 % (42.0-52.0) L Mean Corpuscular Volume 99 FL (80-99) Mean Corpuscular Hemoglobin 34.0 PG (27.0-31.0) H Mean Corpuscular Hemoglobin Concent 34.3 G/DL (32.0-36.0) Red Cell Distribution Width 12.8 % (11.6-14.8) Platelet Count 151 K/UL (150-450) Mean Platelet Volume 7.2 FL (6.5-10.1) Neutrophils (%) (Auto) % (45.0-75.0) Lymphocytes (%) (Auto) % (20.0-45.0) Monocytes (%) (Auto) % (1.0-10.0) Eosinophils (%) (Auto) % (0.0-3.0) Basophils (%) (Auto) % (0.0-2.0) Sodium Level 141 MMOL/L (136-145) Potassium Level 6.0 MMOL/L (3.5-5.1) *H Chloride Level 111 MMOL/L (98-107) H Carbon Dioxide Level 21 MMOL/L (21-32) Anion Gap 9 mmol/L (5-15) Blood Urea Nitrogen 92 mg/dL (7-18) H Creatinine 6.2 MG/DL (0.55-1.30) H Estimat Glomerular Filtration Rate 11.3 mL/min (>60) Glucose Level 49 MG/DL (74-106) L Calcium Level 8.4 MG/DL (8.5-10.1) L Total Bilirubin 0.3 MG/DL (0.2-1.0) Aspartate Amino Transf (AST/SGOT) 18 U/L (15-37) Alanine Aminotransferase (ALT/SGPT) 21 U/L (12-78) Alkaline Phosphatase 128 U/L (46-116) H Total Protein 8.3 G/DL (6.4-8.2) H Albumin 4.0 G/DL (3.4-5.0) Globulin 4.3 g/dL Albumin/Globulin Ratio 0.9 (1.0-2.7) L Height (Feet): 5 Height (Inches): 5.00 Weight (Pounds): 136 Medications Current Medications Medications (Trade) Dose Ordered Sig/Yannick Route PRN Reason Start Time Stop Time Status Last Admin Dose Admin Acetaminophen (Tylenol) 650 mg Q4H PRN ORAL Mild Pain (Pain Scale 1-3) 12/01/17 04:45 12/31/17 04:44 Dextrose (Dextrose 50%) STAT PRN IV Hypoglycemia 12/01/17 04:45 12/31/17 04:44 Diphenhydramine HCl (Benadryl) 25 mg Q6H PRN ORAL Itching/Pruritis 12/01/17 04:45 12/31/17 04:44 Nitroglycerin (Ntg) 0.4 mg Q5M PRN SL Prn Chest Pain 12/01/17 04:45 12/31/17 04:44 Ondansetron HCl (Zofran) 4 mg Q6H PRN IVP Nausea & Vomiting 12/01/17 04:45 12/31/17 04:44 Sodium Chloride 1,000 ml @ 100 mls/hr Q10H IVLG 12/01/17 06:00 12/31/17 05:59 12/01/17 06:13 Assessment/Plan Problem List: (1) Hyperkalemia ICD Codes: E87.5 - Hyperkalemia SNOMED: 24895245 (2) Severe anemia ICD Codes: D64.9 - Anemia, unspecified SNOMED: 426442945 (3) CKD (chronic kidney disease) stage 5, GFR less than 15 ml/min ICD Codes: N18.5 - Chronic kidney disease, stage 5 SNOMED: 855282184 (4) DM2 (diabetes mellitus, type 2) ICD Codes: E11.9 - Type 2 diabetes mellitus without complications SNOMED: 60429115 Assessment/Plan Kayexalate, renal evaluation pt might need HD now anemia secondary most likely to chronic renal disease CITLALI LACY Dec 01, 2017 09:11
[2017-12-01] MEDS ORDERED: Sodium Polystyrene Sulfonate 15gm Powder ORAL ONE ×2 (10:30)
[2017-12-01 10:44] LABS: ANION GAP 9 mmol/L (5-15); BLOOD UREA NITROGEN 85 mg/dL (7-18); CALCIUM 7.9 MG/DL (8.5-10.1); CARBON DIOXIDE 21 MMOL/L (21-32); CHLORIDE 112 MMOL/L (98-107); CREATININE 5.7 MG/DL (0.55-1.30); POTASSIUM 5.2 MMOL/L (3.5-5.1); SODIUM 142 MMOL/L (136-145)
[2017-12-01 10:51] LABS: CREATINE KINASE 406 U/L (26-308)
--- NOTE | 2017-12-01 11:34 | Consultation ---
Consult Note Consult Note 57 year old male with hx of chronic renal insufficiency , DM, HTN, diabetic nephropathy, was sent to ER by primary physician office because of increased K. some of pt's BP meds were changed recently. Pt looks chronically ill but is asymptomatic at this point. Allergies: Coded Allergies: LABETALOL (Verified Allergy, Unknown, cp, 09/08/16) Mushroom (Verified Allergy, Unknown, 06/27/17) Hx Cardiac Problems: Yes - CHF Hx Hypertension: Yes Hx Diabetes: Yes - DIABETIC RETINOPATHY interviewed- was told at [facility] clinic that needs fistula examined data reviewed RN present Assessment/Plan (1) Hyperkalemia (2) Severe anemia (3) CKD (chronic kidney disease) stage 5, GFR less than 15 ml/min (4) DM2 (diabetes mellitus, type 2) Patient has ESRD Need HD declines Meanwhile will give Kaaryanxelaigor OSULLIVAN kidney Echo BP meds adjustments ABDOUL PINEDA Dec 01, 2017 11:34
[2017-12-01] MEDS ORDERED: Lisinopril 10mg tab ORAL ONE (12:15)
--- NOTE | 2017-12-01 12:38 | History & Physical ---
History and Physical History & Physicial [id number] Job ID Karlo Mendoza Keysha Dec 01, 2017 12:38
[2017-12-01 13:29] LABS: APPEARANCE,URINE CLEAR; BILIRUBIN, URINE NEGATIVE (NEGATIVE); COLOR,URINE PALE YELLOW; GLUCOSE, URINE (UA) 1+ (NEGATIVE); KETONES,URINE NEGATIVE (NEGATIVE); LEUKOCYTE ESTERASE ,URINE NEGATIVE (NEGATIVE); NITRITE,URINE NEGATIVE (NEGATIVE); PH,URINE 6 (4.5-8.0); PROTEIN,URINE 2+ (NEGATIVE); UROBILINOGEN,URINE NORMAL MG/DL (0.0-1.0)
--- NOTE | 2017-12-01 17:51 | Cardiac Electrophysiology PN ---
Subjective Subjective Cardiology consult dictated. [id number] Dr Guerra Objective Last 24 Hour Vital Signs Date Time Temp Pulse Resp B/P (MAP) Pulse Ox O2 Delivery O2 Flow Rate FiO2 12/01/17 16:00 97.9 82 20 187/89 98 Room Air 97.9 12/01/17 14:33 168/82 12/01/17 12:00 97.7 74 20 168/82 97 Room Air 97.7 12/01/17 12:00 71 12/01/17 09:00 97.3 84 20 156/78 97 Room Air 97.3 12/01/17 08:00 72 12/01/17 04:10 97.0 71 20 144/72 99 Room Air 97.0 12/01/17 04:00 69 12/01/17 03:45 97.9 68 17 168/76 98 Room Air 97.9 12/01/17 03:35 68 17 168/76 98 Room Air 12/01/17 02:31 57 21 160/67 98 Room Air 12/01/17 00:30 61 16 167/72 99 Room Air 11/30/17 22:24 97.9 63 16 181/89 99 Room Air 97.9 11/30/17 21:43 97.9 63 16 181/89 99 Room Air 97.9 Intake and Output 11/30/17 12/01/17 19:00 07:00 Intake Total 120 ml Output Total 700 ml Balance -580 ml Intake Oral 120 ml Output Urine Total 700 ml # Voids 3 # Bowel Movements 1 Laboratory Tests Test 11/30/17 23:23 12/01/17 09:48 12/01/17 12:40 12/01/17 13:40 White Blood Count 5.5 K/UL (4.8-10.8) Red Blood Count 2.14 M/UL (4.70-6.10) L Hemoglobin 7.3 G/DL (14.2-18.0) L Hematocrit 21.2 % (42.0-52.0) L Mean Corpuscular Volume 99 FL (80-99) Mean Corpuscular Hemoglobin 34.0 PG (27.0-31.0) H Mean Corpuscular Hemoglobin Concent 34.3 G/DL (32.0-36.0) Red Cell Distribution Width 12.8 % (11.6-14.8) Platelet Count 151 K/UL (150-450) Mean Platelet Volume 7.2 FL (6.5-10.1) Neutrophils (%) (Auto) % (45.0-75.0) Lymphocytes (%) (Auto) % (20.0-45.0) Monocytes (%) (Auto) % (1.0-10.0) Eosinophils (%) (Auto) % (0.0-3.0) Basophils (%) (Auto) % (0.0-2.0) Sodium Level 141 MMOL/L (136-145) 142 MMOL/L (136-145) Potassium Level 6.0 MMOL/L (3.5-5.1) *H 5.2 MMOL/L (3.5-5.1) H Chloride Level 111 MMOL/L (98-107) H 112 MMOL/L (98-107) H Carbon Dioxide Level 21 MMOL/L (21-32) 21 MMOL/L (21-32) Anion Gap 9 mmol/L (5-15) 9 mmol/L (5-15) Blood Urea Nitrogen 92 mg/dL (7-18) H 85 mg/dL (7-18) H Creatinine 6.2 MG/DL (0.55-1.30) H 5.7 MG/DL (0.55-1.30) H Estimat Glomerular Filtration Rate 11.3 mL/min (>60) 12.5 mL/min (>60) Glucose Level 49 MG/DL (74-106) L 231 MG/DL (74-106) #H Calcium Level 8.4 MG/DL (8.5-10.1) L 7.9 MG/DL (8.5-10.1) L Total Bilirubin 0.3 MG/DL (0.2-1.0) Aspartate Amino Transf (AST/SGOT) 18 U/L (15-37) Alanine Aminotransferase (ALT/SGPT) 21 U/L (12-78) Alkaline Phosphatase 128 U/L (46-116) H Total Protein 8.3 G/DL (6.4-8.2) H Albumin 4.0 G/DL (3.4-5.0) Globulin 4.3 g/dL Albumin/Globulin Ratio 0.9 (1.0-2.7) L Uric Acid 7.9 MG/DL (2.6-7.2) H Total Creatine Kinase 406 U/L (26-308) H Urine Color Pale yellow Urine Appearance Clear Urine pH 6 (4.5-8.0) Urine Specific [place] 1.010 (1.005-1.035) Urine Protein 2+ (NEGATIVE) H Urine Glucose (UA) 1+ (NEGATIVE) H Urine Ketones Negative (NEGATIVE) Urine Occult Blood 3+ (NEGATIVE) H Urine Nitrite Negative (NEGATIVE) Urine Bilirubin Negative (NEGATIVE) Urine Urobilinogen Normal MG/DL (0.0-1.0) Urine Leukocyte Esterase Negative (NEGATIVE) Urine RBC 0-2 /HPF (0 - 0) H Urine WBC 0-2 /HPF (0 - 0) Urine Squamous Epithelial Cells Occasional /LPF Urine Bacteria Occasional /HPF (NONE) Urine Eosinophils None seen Urine Potassium Timed 14 mmol/L (12-62) Urine Opiates Screen Negative (NEGATIVE) Urine Barbiturates Screen Negative (NEGATIVE) Phencyclidine (PCP) Screen Negative (NEGATIVE) Urine Amphetamines Screen Negative (NEGATIVE) Urine Benzodiazepines Screen Negative (NEGATIVE) Urine Cocaine Screen Negative (NEGATIVE) Urine Marijuana (THC) Screen Negative (NEGATIVE) Urine Random Sodium 99 mmol/L (20-110) DARRELL PADILLA Dec 01, 2017 17:51
[2017-12-01] MEDS ORDERED: Lisinopril 10mg tab ORAL SCH (18:00)
[2017-12-01] MEDS ORDERED: HydrALAZINE 25mg tab ORAL PRN ×2 (20:30→21:08)
[2017-12-01] MEDS ORDERED: Atorvastatin 80mg tab ORAL SCH (21:00)
[2017-12-01] MEDS: HydrALAZINE 50mg tab ORAL SCH (21:54)
[2017-12-01] MEDS ORDERED: HydrALAZINE 50mg tab ORAL SCH (22:00)
[2017-12-02] VITALS (7 sets, daily range): BP systolic 147–190; BP diastolic 76–93
--- NOTE | 2017-12-02 01:45 | History and Physical Report ---
DATE OF ADMISSION: 12/01/2017 HISTORY OF PRESENT ILLNESS: The patient is a pleasant 57-year-old male with past medical history significant for diabetic nephropathy, diabetes mellitus, hypertension, and renal insufficiency, at this time presented to the ER with elevated potassium. recently changed. The patient has been consulted with Nephrology Service, Pulmonary team, and Cardiology for further evaluation and care and has been getting Kayexalate at this moment. PAST MEDICAL HISTORY: As noted above. PAST SURGICAL HISTORY: None reported. ALLERGIES: Labetalol and mushroom. REVIEW OF SYSTEMS: CONSTITUTIONAL: Some weakness and malaise noted. SKIN: No rashes, bumps, or itching. HEENT: No headache, hearing or vision changes. BREASTS: No lumps, pain, or discharge. PULMONARY: No cough, sputum, or shortness of breath. GASTROINTESTINAL: No nausea, vomiting, or diarrhea. GENITOURINARY: No dysuria, frequency, or urgency. MUSCULOSKELETAL: No joint swelling, muscle pain, or trauma. PHYSICAL EXAMINATION: VITAL SIGNS: Blood pressure 134/72, respiratory rate 12, pulse 71, temperature 97 degrees Fahrenheit, and O2 sat 99% on room air. GENERAL: No acute distress. PULMONARY: Decreased breath sounds. CARDIOVASCULAR: Regular rate. No S3 or S4. ABDOMEN: Soft, nontender, and nondistended. EXTREMITIES: No cyanosis, swelling, or edema reported. LABORATORY DATA: WBC , hemoglobin 7.3, hematocrit 21, and platelet count 181,000. BUN 85 and creatinine . Potassium 5.2, currently which has improved . Glucose 231. ASSESSMENT AND RECOMMENDATION: 1. Hyperkalemia. He has been getting Kayexalate, currently improved. Closely monitor. Nephrology Service has been consulted. EKG pending. 2. Hypertension, elevated blood pressure. Antihypertensives as per Cardiology Service, Dr. Herrmann, for further monitoring and management. 3. Diabetes mellitus. Blood sugar goal between 80 and 120. A1c pending. 4. Acute kidney injury secondary to urinary tract infection. Continue to closely monitor. 5. Hyperlipidemia. Has been started on Lipitor. I appreciate the consultation. Karlo Mendoza M.D. DR: CHRISTA JOB#: [id number] CC:
[2017-12-02] MEDS: HydrALAZINE 50mg tab ORAL SCH ×3 (06:00→21:37)
[2017-12-02] MEDS: NovoLOG Insulin Flexpen SUBQ SCH ×4 (06:52→21:35)
[2017-12-02 07:27] LABS: HEMATOCRIT 20.4 % (42.0-52.0); MEAN CORPUSCULAR VOLUME 99 FL (80-99); PLATELET COUNT 160 K/UL (150-450); RED BLOOD COUNT 2.06 M/UL (4.70-6.10); RED CELL DISTRIBUTION WIDTH 12.5 % (11.6-14.8); WHITE BLOOD COUNT 5.3 K/UL (4.8-10.8)
[2017-12-02 07:32] LABS: HEMOGLOBIN 6.8 G/DL (14.2-18.0)
[2017-12-02 08:08] LABS: ALANINE AMINOTRANSFERASE 21 U/L (12-78); ALBUMIN 3.2 G/DL (3.4-5.0); ALBUMIN/GLOBULIN RATIO 0.8 (1.0-2.7); ALKALINE PHOSPHATASE 123 U/L (46-116); ANION GAP 13 mmol/L (5-15); ASPARTATE AMINO TRANSFERASE 15 U/L (15-37); BILIRUBIN,TOTAL 0.3 MG/DL (0.2-1.0); BLOOD UREA NITROGEN 73 mg/dL (7-18); CALCIUM 7.3 MG/DL (8.5-10.1); CARBON DIOXIDE 20 MMOL/L (21-32); CHLORIDE 110 MMOL/L (98-107); CHOLESTEROL 118 MG/DL (< 200); CREATINE KINASE 358 U/L (26-308); CREATININE 5.3 MG/DL (0.55-1.30); FERRITIN 275 NG/ML (8-388); GAMMA GLUTAMYL TRANSPEPTIDASE 17 U/L (5-85); HDL CHOLESTEROL 56 MG/DL (40-60); PHOSPHORUS 6.6 MG/DL (2.5-4.9); POTASSIUM 4.2 MMOL/L (3.5-5.1); SODIUM 143 MMOL/L (136-145); TRIGLYCERIDES 40 MG/DL (30-150)
[2017-12-02 08:09] LABS: IRON 70 ug/dL (50-175); TOTAL IRON BINDING CAPACITY 209 ug/dL (250-450)
[2017-12-02] MEDS: Aspirin EC 81mg tab ORAL SCH (08:18)
[2017-12-02] MEDS: Heparin 5000 units/ml inj SUBQ SCH ×2 (08:20→21:37)
[2017-12-02 08:38] LABS: % IRON SATURATION 33 % (15-50)
--- NOTE | 2017-12-02 08:45 | Consultation ---
DATE OF CONSULTATION: 12/01/2017 CARDIOLOGY CONSULTATION CONSULTING PHYSICIAN: Tucker Herrmann M.D. REFERRING PHYSICIAN: Reno Lujan M.D. REASON FOR CONSULTATION: Severe hyperkalemia. HISTORY OF PRESENT ILLNESS: The patient is a 57-year-old gentleman, who was seen at [facility], was found to have a blood work done. He was also increased on the new medication for his blood pressure. At 6 o'clock, I was told that the potassium has been elevated and came to the emergency room for further evaluation and management. The patient is not on dialysis, however, has significant kidney disease. He stated that he has been drinking a lot of orange juice and he thinks that is why his potassium is elevated. The patient was admitted and EKG showed sinus rhythm with normal electrocardiogram with some peaked T-waves. Cardiology consultation was obtained for further evaluation and management. PAST MEDICAL HISTORY: Includes: 1. Hypertension. 2. Chronic kidney disease. 3. Diabetes. 4. Diabetic retinopathy. 5. Congestive heart failure. ALLERGIES: He is allergic to labetalol. SOCIAL HISTORY: Does not smoke or drink alcohol. FAMILY HISTORY: Noncontributory. REVIEW OF SYSTEMS: Review of systems was performed and was negative other than what was mentioned in the history of present illness. PHYSICAL EXAMINATION: VITAL SIGNS: Blood pressure is 187/89, pulse is 82, respirations 18, and temperature 97.9. HEAD AND NECK: Shows no JVD. LUNGS: Clear. CARDIOVASCULAR: Shows regular S1 and S2 with no gallop or murmur. ABDOMEN: Soft. EXTREMITIES: A 1+ pitting edema. LABORATORY AND DIAGNOSTIC DATA: His labs show white count of 5.5, hemoglobin 7.3, hematocrit 21.2, and platelet count is 151,000. Sodium 141, potassium was 6, that went down to 5.2, BUN of 85, creatinine of 5.7, and glucose of 231. CK is 406. His urine toxicology screen is negative. ASSESSMENT AND PLAN: 1. Accelerated hypertension. This is likely due to the patient's renal failure. The patient is on lisinopril [address] Guerra. We will add hydralazine 25 mg twice a day to his medical regimen. 2. Hyperkalemia due to renal failure. Refuses hemodialysis. I was told that 03:29 fistula also. The patient currently declines hemodialysis. Receiving counseling. He underwent an echocardiogram that showed an ejection fraction of 65% to 70%. 3. Diastolic dysfunction. 4. Type 2 diabetes. Thank you very much, Dr. Mendoza and Dr. Lujan, for allowing me to participate in the care of this patient. Please do not hesitate to contact me for any questions regarding my evaluation. Tucker Herrmann M.D. DR: AURY JOB#: [id number] CC:
[2017-12-02] MEDS ORDERED: Aspirin EC 81mg tab ORAL SCH (09:00)
--- NOTE | 2017-12-02 10:57 | Diagnostic Imaging Report ---
Indication:Elevated Bun and Creatinine. Technique: Grayscale and duplex Doppler imaging of the kidneys performed. Comparison: None Findings: There is a calcification in the left kidney which may be a nonobstructive stone. There are degenerative is no hydronephrosis. Bilateral ureteral jets are present. The urinary bladder shows a fairly large postvoid residual of about 200 cc. Right kidney measures 9.5 cm. The left kidney measures 10.2 cm. IVC is unremarkable. IMPRESSION: Suspected nonobstructive stone in the left kidney. No hydronephrosis. Significant postvoid residual within the urinary bladder.
--- NOTE | 2017-12-02 11:40 | Nephrology Progress Note ---
Assessment/Plan Assessment (1) Hyperkalemia (2) Severe anemia (3) CKD (chronic kidney disease) stage 5, GFR less than 15 ml/min (4) DM2 (diabetes mellitus, type 2) Plan Patient has ESRD Likely Need HD declines Meanwhile will give Kayexelate when K up SHI kidney noted Echo Noted BP meds adjustments ? DC after transfusion Subjective ROS Limited/Unobtainable: No Constitutional: Reports: malaise Objective Objective Last 24 Hour Vital Signs Date Time Temp Pulse Resp B/P (MAP) Pulse Ox O2 Delivery O2 Flow Rate FiO2 12/02/17 08:39 98.1 78 20 147/76 98 98.1 12/02/17 06:00 186/91 12/02/17 04:00 98.1 87 18 186/91 100 98.1 12/02/17 00:00 97.9 75 18 149/79 100 97.9 12/01/17 21:54 170/85 12/01/17 20:05 187/89 12/01/17 20:00 97.7 98 20 141/72 98 Room Air 97.7 12/01/17 16:00 97.9 82 20 187/89 98 Room Air 97.9 12/01/17 16:00 82 12/01/17 14:33 168/82 12/01/17 12:00 97.7 74 20 168/82 97 Room Air 97.7 12/01/17 12:00 71 Intake and Output 12/01/17 12/02/17 19:00 07:00 Intake Total 640 ml 450 ml Output Total 1100 ml Balance -460 ml 450 ml Intake Oral 640 ml 450 ml Output Urine Total 1100 ml # Voids 1 Laboratory Tests 12/01/17 12:40: Urine Color Pale yellow, Urine Appearance Clear, Urine pH 6, Urine Specific [place] 1.010, Urine Protein 2+H, Urine Glucose (UA) 1+H, Urine Ketones Negative , Urine Occult Blood 3+H, Urine Nitrite Negative, Urine Bilirubin Negative, Urine Urobilinogen Normal, Urine Leukocyte Esterase Negative, Urine RBC 0-2H, Urine WBC 0-2, Urine Squamous Epithelial Cells Occasional, Urine Bacteria Occasional, Urine Eosinophils None seen, Urine Potassium Timed 14, Urine Opiates Screen Negative, Urine Barbiturates Screen Negative, Phencyclidine (PCP ) Screen Negative, Urine Amphetamines Screen Negative, Urine Benzodiazepines Screen Negative, Urine Cocaine Screen Negative, Urine Marijuana (THC) Screen Negative 12/01/17 13:40: Urine Random Sodium 99 12/02/17 05:20: White Blood Count 5.3, Red Blood Count 2.06L, Hemoglobin 6.8*L, Hematocrit 20.4L , Mean Corpuscular Volume 99, Mean Corpuscular Hemoglobin 32.8H, Mean Corpuscular Hemoglobin Concent 33.2, Red Cell Distribution Width 12.5, Platelet Count 160, Mean Platelet Volume 6.8, Neutrophils (%) (Auto) , Lymphocytes (%) ( Auto) , Monocytes (%) (Auto) , Eosinophils (%) (Auto) , Basophils (%) (Auto) , Neutrophils % (Manual) [Pending], Lymphocytes % (Manual) [Pending], Platelet Estimate [Pending], Platelet Morphology [Pending], Sodium Level 143, Potassium Level 4.2, Chloride Level 110H, Carbon Dioxide Level 20L, Anion Gap 13, Blood Urea Nitrogen 73H, Creatinine 5.3H, Estimat Glomerular Filtration Rate 13.6, Glucose Level 168H, Hemoglobin A1c 4.9, Uric Acid 7.3H, Calcium Level 7.3L, Phosphorus Level 6.6H, Magnesium Level 1.8, Iron Level 70, Total Iron Binding Capacity 209L, Percent Iron Saturation 33, Unsaturated Iron Binding 139, Ferritin 275, Total Bilirubin 0.3, Gamma Glutamyl Transpeptidase 17, Aspartate Amino Transf (AST/SGOT) 15, Alanine Aminotransferase (ALT/SGPT) 21, Alkaline Phosphatase 123H, Total Creatine Kinase 358H, Troponin I 0.003, C-Reactive Protein, Quantitative < 0.4, Pro-B-Type Natriuretic Peptide 677H, Total Protein 7.3, Albumin 3.2L, Globulin 4.1, Albumin/Globulin Ratio 0.8L, Triglycerides Level 40, Cholesterol Level 118, LDL Cholesterol 63, HDL Cholesterol 56, Cholesterol/HDL Ratio 2.1L, Vitamin B12 Level 303, Folate 5.4L, Thyroid Stimulating Hormone (TSH) 2.050 Height (Feet): 5 Height (Inches): 5.00 Weight (Pounds): 136 General Appearance: no apparent distress Respiratory/Chest: decreased breath sounds ABDOUL PINEDA Dec 02, 2017 11:40
[2017-12-02] MEDS: Metoprolol Tartrate 50mg tab ORAL SCH ×2 (12:22→21:49)
[2017-12-02] MEDS ORDERED: Metoprolol Tartrate 50mg tab ORAL SCH (12:30)
--- NOTE | 2017-12-02 16:48 | Cardiac Electrophysiology PN ---
Assessment/Plan Assessment/Plan 1. Accelerated hypertension. On Norvasc 10 daily, Lopressor 50 bid and Hydralazine 50 tid. . 2. Hyperkalemia due to renal failure. Refuses hemodialysis. The patient currently declines hemodialysis. Receiving counseling. He underwent an echocardiogram that showed an ejection fraction of 65% to 70%. 3. Diastolic dysfunction. 4. Type 2 diabetes. 5. Anemia, getting blood transfusion. Subjective Subjective Getting blood transfusion. Refusing HD at this time. Objective Last 24 Hour Vital Signs Date Time Temp Pulse Resp B/P (MAP) Pulse Ox O2 Delivery O2 Flow Rate FiO2 12/02/17 12:22 76 190/87 12/02/17 12:15 76 190/87 12/02/17 11:52 98.2 76 20 190/87 100 98.2 12/02/17 08:39 98.1 78 20 147/76 98 98.1 12/02/17 06:00 186/91 12/02/17 04:00 98.1 87 18 186/91 100 98.1 12/02/17 00:00 97.9 75 18 149/79 100 97.9 12/01/17 21:54 170/85 12/01/17 20:05 187/89 12/01/17 20:00 97.7 98 20 141/72 98 Room Air 97.7 Intake and Output 12/01/17 12/02/17 19:00 07:00 Intake Total 640 ml 450 ml Output Total 1100 ml Balance -460 ml 450 ml Intake Oral 640 ml 450 ml Output Urine Total 1100 ml # Voids 1 Laboratory Tests Test 12/02/17 05:20 White Blood Count 5.3 K/UL (4.8-10.8) Red Blood Count 2.06 M/UL (4.70-6.10) L Hemoglobin 6.8 G/DL (14.2-18.0) *L Hematocrit 20.4 % (42.0-52.0) L Mean Corpuscular Volume 99 FL (80-99) Mean Corpuscular Hemoglobin 32.8 PG (27.0-31.0) H Mean Corpuscular Hemoglobin Concent 33.2 G/DL (32.0-36.0) Red Cell Distribution Width 12.5 % (11.6-14.8) Platelet Count 160 K/UL (150-450) Mean Platelet Volume 6.8 FL (6.5-10.1) Neutrophils (%) (Auto) % (45.0-75.0) Lymphocytes (%) (Auto) % (20.0-45.0) Monocytes (%) (Auto) % (1.0-10.0) Eosinophils (%) (Auto) % (0.0-3.0) Basophils (%) (Auto) % (0.0-2.0) Differential Total Cells Counted 100 Neutrophils % (Manual) 78 % (45-75) H Lymphocytes % (Manual) 18 % (20-45) L Monocytes % (Manual) 3 % (1-10) Eosinophils % (Manual) 1 % (0-3) Basophils % (Manual) 0 % (0-2) Band Neutrophils 0 % (0-8) Platelet Estimate Adequate Platelet Morphology Normal Hypochromasia 1+ Sodium Level 143 MMOL/L (136-145) Potassium Level 4.2 MMOL/L (3.5-5.1) Chloride Level 110 MMOL/L (98-107) H Carbon Dioxide Level 20 MMOL/L (21-32) L Anion Gap 13 mmol/L (5-15) Blood Urea Nitrogen 73 mg/dL (7-18) H Creatinine 5.3 MG/DL (0.55-1.30) H Estimat Glomerular Filtration Rate 13.6 mL/min (>60) Glucose Level 168 MG/DL (74-106) H Hemoglobin A1c 4.9 % (4.3-6.0) Uric Acid 7.3 MG/DL (2.6-7.2) H Calcium Level 7.3 MG/DL (8.5-10.1) L Phosphorus Level 6.6 MG/DL (2.5-4.9) H Magnesium Level 1.8 MG/DL (1.8-2.4) Iron Level 70 ug/dL (50-175) Total Iron Binding Capacity 209 ug/dL (250-450) L Percent Iron Saturation 33 % (15-50) Unsaturated Iron Binding 139 ug/dL (112-346) Ferritin 275 NG/ML (8-388) Total Bilirubin 0.3 MG/DL (0.2-1.0) Gamma Glutamyl Transpeptidase 17 U/L (5-85) Aspartate Amino Transf (AST/SGOT) 15 U/L (15-37) Alanine Aminotransferase (ALT/SGPT) 21 U/L (12-78) Alkaline Phosphatase 123 U/L (46-116) H Total Creatine Kinase 358 U/L (26-308) H Troponin I 0.003 ng/mL (0.000-0.056) C-Reactive Protein, Quantitative < 0.4 mg/dL (0.00-0.90) Pro-B-Type Natriuretic Peptide 677 pg/mL (0-125) H Total Protein 7.3 G/DL (6.4-8.2) Albumin 3.2 G/DL (3.4-5.0) L Globulin 4.1 g/dL Albumin/Globulin Ratio 0.8 (1.0-2.7) L Triglycerides Level 40 MG/DL (30-150) Cholesterol Level 118 MG/DL (< 200) LDL Cholesterol 63 mg/dL (<100) HDL Cholesterol 56 MG/DL (40-60) Cholesterol/HDL Ratio 2.1 (3.3-4.4) L Vitamin B12 Level 303 PG/ML (193-986) Folate 5.4 NG/ML (8.6-58.9) L Thyroid Stimulating Hormone (TSH) 2.050 uiU/mL (0.358-3.740) Objective HEAD AND NECK: No JVD. LUNGS: Clear. CARDIOVASCULAR: Regular S1 and S2 with no gallop or murmur. ABDOMEN: Soft. EXTREMITIES: 1+ pitting edema. DARRELL PADILLA Dec 02, 2017 16:48
--- NOTE | 2017-12-02 19:08 | Pulmonology Progress Note ---
Assessment/Plan Problems: (1) Hyperkalemia (2) Severe anemia (3) CKD (chronic kidney disease) stage 5, GFR less than 15 ml/min (4) DM2 (diabetes mellitus, type 2) Assessment/Plan improving prbc f/u renal recommendations symptomatic treatment all notes and meds reviewed Subjective ROS Limited/Unobtainable: No Allergies: Coded Allergies: LABETALOL (Verified Allergy, Unknown, cp, 09/08/16) Mushroom (Verified Allergy, Unknown, 06/27/17) Objective Last 24 Hour Vital Signs Date Time Temp Pulse Resp B/P (MAP) Pulse Ox O2 Delivery O2 Flow Rate FiO2 12/02/17 16:56 98.2 74 20 168/82 99 Room Air 98.2 12/02/17 12:22 76 190/87 12/02/17 12:15 76 190/87 12/02/17 11:52 98.2 76 20 190/87 100 98.2 12/02/17 08:39 98.1 78 20 147/76 98 98.1 12/02/17 06:00 186/91 12/02/17 04:00 98.1 87 18 186/91 100 98.1 12/02/17 00:00 97.9 75 18 149/79 100 97.9 12/01/17 21:54 170/85 12/01/17 20:05 187/89 12/01/17 20:00 97.7 98 20 141/72 98 Room Air 97.7 Intake and Output 12/01/17 12/02/17 19:00 07:00 Intake Total 640 ml 450 ml Output Total 1100 ml Balance -460 ml 450 ml Intake Oral 640 ml 450 ml Output Urine Total 1100 ml # Voids 1 General Appearance: WD/WN HEENT: normocephalic, anicteric Respiratory/Chest: chest wall non-tender, lungs clear Cardiovascular: normal peripheral pulses, normal rate Abdomen: normal bowel sounds, soft, non tender Genitourinary: normal external genitalia Extremities: no cyanosis Skin: no rash 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, no motor/sensory deficits Laboratory Tests 12/02/17 05:20: White Blood Count 5.3, Red Blood Count 2.06L, Hemoglobin 6.8*L, Hematocrit 20.4L , Mean Corpuscular Volume 99, Mean Corpuscular Hemoglobin 32.8H, Mean Corpuscular Hemoglobin Concent 33.2, Red Cell Distribution Width 12.5, Platelet Count 160, Mean Platelet Volume 6.8, Neutrophils (%) (Auto) , Lymphocytes (%) ( Auto) , Monocytes (%) (Auto) , Eosinophils (%) (Auto) , Basophils (%) (Auto) , Differential Total Cells Counted 100, Neutrophils % (Manual) 78H, Lymphocytes % (Manual) 18L, Monocytes % (Manual) 3, Eosinophils % (Manual) 1, Basophils % ( Manual) 0, Band Neutrophils 0, Platelet Estimate Adequate, Platelet Morphology Normal, Hypochromasia 1+, Sodium Level 143, Potassium Level 4.2, Chloride Level 110H, Carbon Dioxide Level 20L, Anion Gap 13, Blood Urea Nitrogen 73H, Creatinine 5.3H, Estimat Glomerular Filtration Rate 13.6, Glucose Level 168H, Hemoglobin A1c 4.9, Uric Acid 7.3H, Calcium Level 7.3L, Phosphorus Level 6.6H, Magnesium Level 1.8, Iron Level 70, Total Iron Binding Capacity 209L, Percent Iron Saturation 33, Unsaturated Iron Binding 139, Ferritin 275, Total Bilirubin 0.3, Gamma Glutamyl Transpeptidase 17, Aspartate Amino Transf (AST/SGOT) 15, Alanine Aminotransferase (ALT/SGPT) 21, Alkaline Phosphatase 123H, Total Creatine Kinase 358H, Troponin I 0.003, C-Reactive Protein, Quantitative < 0.4, Pro-B-Type Natriuretic Peptide 677H, Total Protein 7.3, Albumin 3.2L, Globulin 4.1, Albumin/Globulin Ratio 0.8L, Triglycerides Level 40, Cholesterol Level 118 , LDL Cholesterol 63, HDL Cholesterol 56, Cholesterol/HDL Ratio 2.1L, Vitamin B12 Level 303, Folate 5.4L, Thyroid Stimulating Hormone (TSH) 2.050 Current Medications Medications (Trade) Dose Ordered Sig/Yannick Route PRN Reason Start Time Stop Time Status Last Admin Dose Admin Acetaminophen (Tylenol) 650 mg Q4H PRN ORAL Mild Pain (Pain Scale 1-3) 12/01/17 21:08 12/31/17 21:07 Amlodipine Besylate (Norvasc) 10 mg DAILY ORAL 12/02/17 13:00 01/01/18 12:59 12/02/17 12:15 Aspirin (Ecotrin) 81 mg DAILY ORAL 3/8/18 09:00 01/01/18 08:59 12/02/17 08:18 Atorvastatin Calcium (Lipitor) 80 mg BEDTIME ORAL 12/02/17 21:00 12/31/17 20:59 Dextrose (Dextrose 50%) STAT PRN IV Hypoglycemia 12/01/17 21:08 12/31/17 21:07 Dextrose (Dextrose 50%) STAT PRN IV Hypoglycemia 12/01/17 22:30 12/31/17 22:29 Heparin Sodium (Porcine) (Heparin 5000 units/ml) 5,000 units EVERY 12 HOURS SUBQ 12/02/17 09:00 01/01/18 08:59 12/02/17 08:20 Hydralazine HCl (Apresoline) 25 mg Q6HR PRN ORAL SBP >140 12/01/17 21:08 12/31/17 21:07 Hydralazine HCl (Apresoline) 50 mg EVERY 8 HOURS ORAL 12/01/17 22:00 12/31/17 21:59 12/01/17 21:54 Insulin Aspart (NovoLOG) BEFORE MEALS AND HS SUBQ 12/02/17 06:30 01/01/18 06:29 12/02/17 16:51 Metoprolol Tartrate (Lopressor) 50 mg Q12HR ORAL 12/02/17 12:30 01/01/18 12:29 12/02/17 12:22 Nitroglycerin (Ntg) 0.4 mg Q5M PRN SL Prn Chest Pain 12/01/17 21:15 12/31/17 04:44 Ondansetron HCl (Zofran) 4 mg Q6H PRN IVP Nausea & Vomiting 12/01/17 21:09 12/31/17 21:08 Sevelamer Carbonate (Renvela) 1,600 mg THREE TIMES A DAY ORAL 12/02/17 13:00 01/01/18 12:59 CITLALI LACY Dec 02, 2017 19:08
[2017-12-02] MEDS ORDERED: Atorvastatin 80mg tab ORAL SCH (21:00)
[2017-12-03] VITALS (7 sets, daily range): BP systolic 141–191; BP diastolic 78–89
[2017-12-03] MEDS: HydrALAZINE 50mg tab ORAL SCH ×2 (06:00→14:00)
[2017-12-03] MEDS: NovoLOG Insulin Flexpen SUBQ SCH ×2 (06:29→11:30)
[2017-12-03] MEDS: Aspirin EC 81mg tab ORAL SCH (08:37)
[2017-12-03] MEDS: Metoprolol Tartrate 50mg tab ORAL SCH (08:40)
[2017-12-03] MEDS: Heparin 5000 units/ml inj SUBQ SCH (08:47)
--- NOTE | 2017-12-03 10:14 | General Progress Note ---
Assessment/Plan Assessment/Plan #. Anemia of chronic disease. --> Anemia workup has been reviewed. --> Iron 70, TIBC 209, Ferritin 275, B12 303, Folate 5.4 --> Hemoglobin levels are low, pending blood transfusion #. Hyperkalemia. --> He has been getting Kayexalate, currently improved. --> Closely monitor. Nephrology Service has been consulted. EKG pending. #. Hypertension, elevated blood pressure. Antihypertensives as per Cardiology Service, Dr. Herrmann, for further monitoring and management. #. Diabetes mellitus. Blood sugar goal between 80 and 120. A1c pending. #. Acute kidney injury secondary to urinary tract infection. Continue to closely monitor. #. Hyperlipidemia. Has been started on Lipitor. Subjective Date patient seen: Dec 02, 2017 Constitutional: Denies: no symptoms, chills, diaphoresis, fever, malaise, weakness, other HEENT: Denies: no symptoms, eye pain, blurred vision, tearing, double vision, ear pain, ear discharge, nose pain, nose congestion, throat pain, throat swelling, mouth pain, mouth swelling, other Cardiovascular: Denies: no symptoms, chest pain, edema, irregular heart rate, lightheadedness, palpitations, syncope, other Respiratory: Denies: no symptoms, cough, orthopnea, shortness of breath, SOB with excertion, SOB at rest, sputum, stridor, wheezing, other Gastrointestinal/Abdominal: Denies: no symptoms, abdomen distended, abdominal pain, black stools, tarry stools, blood in stool, constipated, diarrhea, difficulty swallowing, nausea, poor appetite, poor fluid intake, rectal bleeding , vomiting, other Genitourinary: Denies: no symptoms, burning, discharge, frequency, flank pain, hematuria, incontinence, pain, urgency, other Neurologic/Psychiatric: Denies: no symptoms, anxiety, depressed, emotional problems, headache, numbness, paresthesia, pre-existing deficit, seizure, tingling, tremors, weakness, other Hematologic/Lymphatic: Reports: anemia Allergies: Coded Allergies: LABETALOL (Verified Allergy, Unknown, cp, 09/08/16) Mushroom (Verified Allergy, Unknown, 06/27/17) Subjective Hemoglobin low. Pending PRBC. Objective Last 24 Hour Vital Signs Date Time Temp Pulse Resp B/P (MAP) Pulse Ox O2 Delivery O2 Flow Rate FiO2 12/03/17 08:40 77 191/89 12/03/17 08:39 77 191/89 12/03/17 08:00 98.4 77 19 191/89 96 98.4 12/03/17 06:29 77 19 156/88 99 Room Air 12/03/17 06:00 156/88 12/03/17 01:00 157/80 12/03/17 00:01 97.5 81 20 185/89 100 Room Air 97.5 12/02/17 21:49 72 160/93 12/02/17 21:49 72 160/93 12/02/17 21:37 160/93 12/02/17 19:23 97.7 83 20 162/89 96 Room Air 97.7 12/02/17 16:56 98.2 74 20 168/82 99 Room Air 98.2 12/02/17 12:22 76 190/87 12/02/17 12:15 76 190/87 12/02/17 11:52 98.2 76 20 190/87 100 98.2 Intake and Output 12/02/17 12/03/17 19:00 07:00 Intake Total 960 ml 480 ml Balance 960 ml 480 ml Intake Oral 960 ml 480 ml # Voids 3 5 # Bowel Movements 1 1 Height (Feet): 5 Height (Inches): 5.00 Weight (Pounds): 136 Respiratory/Chest: decreased breath sounds Edema: trace edema Karlo Mendoza Dec 03, 2017 10:14
--- NOTE | 2017-12-03 15:32 | Pulmonology Progress Note ---
Assessment/Plan Problems: (1) Hyperkalemia (2) Severe anemia (3) CKD (chronic kidney disease) stage 5, GFR less than 15 ml/min (4) DM2 (diabetes mellitus, type 2) Assessment/Plan improving prbc today f/u renal recommendations symptomatic treatment all notes and meds reviewed refusing HD, can go home after transfusion Subjective ROS Limited/Unobtainable: No Allergies: Coded Allergies: HYDRALAZINE (Verified Allergy, Unknown, 12/03/17) states"heads get wuzzy" LABETALOL (Verified Allergy, Unknown, cp, 09/08/16) Mushroom (Verified Allergy, Unknown, 06/27/17) Objective Last 24 Hour Vital Signs Date Time Temp Pulse Resp B/P (MAP) Pulse Ox O2 Delivery O2 Flow Rate FiO2 12/03/17 14:56 97.9 64 19 176/87 96 97.9 12/03/17 14:06 175/83 12/03/17 14:00 175/83 12/03/17 12:02 Room Air 12/03/17 11:48 97.9 64 20 175/83 97 97.9 12/03/17 08:40 77 191/89 12/03/17 08:39 77 191/89 12/03/17 08:00 98.4 77 19 191/89 96 98.4 12/03/17 08:00 Room Air 12/03/17 06:29 77 19 156/88 99 Room Air 12/03/17 06:00 156/88 12/03/17 01:00 157/80 12/03/17 00:01 97.5 81 20 185/89 100 Room Air 97.5 12/02/17 21:49 72 160/93 12/02/17 21:49 72 160/93 12/02/17 21:37 160/93 12/02/17 19:23 97.7 83 20 162/89 96 Room Air 97.7 12/02/17 16:56 98.2 74 20 168/82 99 Room Air 98.2 Intake and Output 12/02/17 12/03/17 19:00 07:00 Intake Total 960 ml 480 ml Balance 960 ml 480 ml Intake Oral 960 ml 480 ml # Voids 3 5 # Bowel Movements 1 1 Objective General Appearance: WD/WN Lines, tubes and drains: peripheral HEENT: normocephalic, atraumatic Neck: non-tender, normal alignment Respiratory/Chest: chest wall non-tender, lungs clear Cardiovascular/Chest: normal peripheral pulses, normal rate Abdomen: normal bowel sounds, non tender Extremities: normal range of motion, non-tender Skin Exam: normal pigmentation Current Medications Medications (Trade) Dose Ordered Sig/Yannick Route PRN Reason Start Time Stop Time Status Last Admin Dose Admin Acetaminophen (Tylenol) 650 mg Q4H PRN ORAL Mild Pain (Pain Scale 1-3) 12/01/17 21:08 12/31/17 21:07 Amlodipine Besylate (Norvasc) 10 mg DAILY ORAL 12/02/17 13:00 01/01/18 12:59 12/03/17 08:39 Aspirin (Ecotrin) 81 mg DAILY ORAL 12/02/17 09:00 01/01/18 08:59 12/03/17 08:37 Clonidine HCl (Catapres Tab) 0.1 mg Q2H PRN ORAL SBP > 170 12/03/17 13:45 01/02/18 13:44 12/03/17 14:06 Dextrose (Dextrose 50%) STAT PRN IV Hypoglycemia 12/01/17 21:08 12/31/17 21:07 Dextrose (Dextrose 50%) STAT PRN IV Hypoglycemia 12/01/17 22:30 12/31/17 22:29 Heparin Sodium (Porcine) (Heparin 5000 units/ml) 5,000 units EVERY 12 HOURS SUBQ 12/02/17 09:00 01/01/18 08:59 12/03/17 08:47 Insulin Aspart (NovoLOG) BEFORE MEALS AND HS SUBQ 12/02/17 06:30 01/01/18 06:29 12/02/17 21:35 Metoprolol Tartrate (Lopressor) 50 mg Q12HR ORAL 12/02/17 12:30 01/01/18 12:29 12/03/17 08:40 Nitroglycerin (Ntg) 0.4 mg Q5M PRN SL Prn Chest Pain 12/01/17 21:15 12/31/17 04:44 Ondansetron HCl (Zofran) 4 mg Q6H PRN IVP Nausea & Vomiting 12/01/17 21:09 12/31/17 21:08 Pravastatin Sodium (Pravachol) 40 mg BEDTIME ORAL 12/03/17 21:00 01/02/18 20:59 Sevelamer Carbonate (Renvela) 1,600 mg THREE TIMES A DAY ORAL 12/02/17 13:00 01/01/18 12:59 CITLALI LACY Dec 03, 2017 15:32
--- NOTE | 2017-12-03 15:33 | Nephrology Progress Note ---
Assessment/Plan Problem List: (1) Hyperkalemia (2) Renal failure (3) Severe anemia (4) DM2 (diabetes mellitus, type 2) Assessment (1) Hyperkalemia resolved (2) Severe anemia transfused (3) CKD (chronic kidney disease) stage 5, GFR less than 15 ml/min (4) DM2 (diabetes mellitus, type 2) Plan no labs today Patient has ESRD Likely Need HD declines Meanwhile will give Kayexelate when K up SHI kidney noted Echo Noted BP meds adjustments ? DC after transfusion Subjective ROS Limited/Unobtainable: No Objective Objective Last 24 Hour Vital Signs Date Time Temp Pulse Resp B/P (MAP) Pulse Ox O2 Delivery O2 Flow Rate FiO2 12/03/17 14:56 97.9 64 19 176/87 96 97.9 12/03/17 14:06 175/83 12/03/17 14:00 175/83 12/03/17 12:02 Room Air 12/03/17 11:48 97.9 64 20 175/83 97 97.9 12/03/17 08:40 77 191/89 12/03/17 08:39 77 191/89 12/03/17 08:00 98.4 77 19 191/89 96 98.4 12/03/17 08:00 Room Air 12/03/17 06:29 77 19 156/88 99 Room Air 12/03/17 06:00 156/88 12/03/17 01:00 157/80 12/03/17 00:01 97.5 81 20 185/89 100 Room Air 97.5 12/02/17 21:49 72 160/93 12/02/17 21:49 72 160/93 12/02/17 21:37 160/93 12/02/17 19:23 97.7 83 20 162/89 96 Room Air 97.7 12/02/17 16:56 98.2 74 20 168/82 99 Room Air 98.2 Intake and Output 12/02/17 12/03/17 19:00 07:00 Intake Total 960 ml 480 ml Balance 960 ml 480 ml Intake Oral 960 ml 480 ml # Voids 3 5 # Bowel Movements 1 1 Height (Feet): 5 Height (Inches): 5.00 Weight (Pounds): 136 General Appearance: no apparent distress ABDOUL PINEDA Dec 03, 2017 15:33
--- NOTE | 2017-12-03 16:05 | Cardiac Electrophysiology PN ---
Assessment/Plan Assessment/Plan 1. Accelerated hypertension. On Norvasc 10 daily, Lopressor 50 bid and Hydralazine 50 tid( Refused it).Add prn Clonidine . 2. Hyperkalemia due to renal failure. Refuses hemodialysis. Echo ejection fraction of 65% to 70%. 3. Diastolic dysfunction. 4. Type 2 diabetes. 5. Anemia, s/p blood transfusion. 6. ESRD. Wants to have follow up with [facility] for possible AV shunt for HD Subjective Subjective Refused Hydralazine. I gave extra Clonidine as BP was in 180s Objective Last 24 Hour Vital Signs Date Time Temp Pulse Resp B/P (MAP) Pulse Ox O2 Delivery O2 Flow Rate FiO2 12/03/17 14:56 97.9 64 19 176/87 96 97.9 12/03/17 14:06 175/83 12/03/17 14:00 175/83 12/03/17 12:02 Room Air 12/03/17 11:48 97.9 64 20 175/83 97 97.9 12/03/17 08:40 77 191/89 12/03/17 08:39 77 191/89 12/03/17 08:00 98.4 77 19 191/89 96 98.4 12/03/17 08:00 Room Air 12/03/17 06:29 77 19 156/88 99 Room Air 12/03/17 06:00 156/88 12/03/17 01:00 157/80 12/03/17 00:01 97.5 81 20 185/89 100 Room Air 97.5 12/02/17 21:49 72 160/93 12/02/17 21:49 72 160/93 12/02/17 21:37 160/93 12/02/17 19:23 97.7 83 20 162/89 96 Room Air 97.7 12/02/17 16:56 98.2 74 20 168/82 99 Room Air 98.2 Intake and Output 12/02/17 12/03/17 19:00 07:00 Intake Total 960 ml 480 ml Balance 960 ml 480 ml Intake Oral 960 ml 480 ml # Voids 3 5 # Bowel Movements 1 1 Objective HEAD AND NECK: No JVD. LUNGS: Clear. CARDIOVASCULAR: Regular S1 and S2 with no gallop or murmur. ABDOMEN: Soft. EXTREMITIES: 1+ pitting edema. DARRELL PADILLA Dec 03, 2017 16:05
[2017-12-03] MEDS ORDERED: Tubing Blood Filter IV ONE (16:07)
[2017-12-03] MEDS ORDERED: NS 275ml ONE (16:07)
--- NOTE | 2017-12-04 11:13 | General Progress Note ---
Assessment/Plan Assessment/Plan #. Anemia of chronic disease. --> Anemia workup has been reviewed. --> Iron 70, TIBC 209, Ferritin 275, B12 303, Folate 5.4 --> S/P blood transfusion. No adverse events. #. Hyperkalemia. --> He has been getting Kayexalate, currently improved. --> Closely monitor. Nephrology Service has been consulted. EKG pending. #. Hypertension, elevated blood pressure. Antihypertensives as per Cardiology Service, Dr. Herrmann, for further monitoring and management. #. Diabetes mellitus. Blood sugar goal between 80 and 120. A1c pending. #. Acute kidney injury secondary to urinary tract infection. Continue to closely monitor. #. Hyperlipidemia. Has been started on Lipitor. Subjective Date patient seen: Dec 03, 2017 Constitutional: Denies: no symptoms, chills, diaphoresis, fever, malaise, weakness, other HEENT: Denies: no symptoms, eye pain, blurred vision, tearing, double vision, ear pain, ear discharge, nose pain, nose congestion, throat pain, throat swelling, mouth pain, mouth swelling, other Cardiovascular: Denies: no symptoms, chest pain, edema, irregular heart rate, lightheadedness, palpitations, syncope, other Respiratory: Denies: no symptoms, cough, orthopnea, shortness of breath, SOB with excertion, SOB at rest, sputum, stridor, wheezing, other Gastrointestinal/Abdominal: Denies: no symptoms, abdomen distended, abdominal pain, black stools, tarry stools, blood in stool, constipated, diarrhea, difficulty swallowing, nausea, poor appetite, poor fluid intake, rectal bleeding , vomiting, other Genitourinary: Denies: no symptoms, burning, discharge, frequency, flank pain, hematuria, incontinence, pain, urgency, other Neurologic/Psychiatric: Denies: no symptoms, anxiety, depressed, emotional problems, headache, numbness, paresthesia, pre-existing deficit, seizure, tingling, tremors, weakness, other Hematologic/Lymphatic: Reports: anemia Allergies: Coded Allergies: HYDRALAZINE (Verified Allergy, Unknown, 12/03/17) states"heads get wuzzy" LABETALOL (Verified Allergy, Unknown, cp, 09/08/16) Mushroom (Verified Allergy, Unknown, 10/1/17) Subjective S/P PRBC. No acute events. Resting in bed. Objective Last 24 Hour Vital Signs Date Time Temp Pulse Resp B/P (MAP) Pulse Ox O2 Delivery O2 Flow Rate FiO2 12/03/17 16:00 98.1 69 19 141/78 99 98.1 12/03/17 14:56 97.9 64 19 176/87 96 97.9 12/03/17 14:06 175/83 12/03/17 14:00 175/83 12/03/17 12:02 Room Air 12/03/17 11:48 97.9 64 20 175/83 97 97.9 Height (Feet): 5 Height (Inches): 5.00 Weight (Pounds): 136 General Appearance: no apparent distress Respiratory/Chest: decreased breath sounds Abdomen: non tender, soft Karlo Mendoza Dec 04, 2017 11:13
--- NOTE | 2017-12-06 10:44 | Discharge Summary ---
Discharge Summary Hospital Course Date of Admission Dec 01, 2017 at 01:20 Date of Discharge Dec 03, 2017 at 16:08 Admitting Diagnosis hyperkalemia MARGARITA Jackson is a 57 year old male who was admitted on Dec 01, 2017 at 01:20 for Hyperkalemia Hospital Course dc summary #[id number] Discharge Medications Continued Medications: Amlodipine-Atorvastatin 10-20 Mg (Amlodipine-Atorvastatin 10-20 Mg) 1 Each Tablet 10 MG ORAL DAILY, TAB Atorvastatin Calcium* (Lipitor*) 80 Mg Tablet 80 MG ORAL BEDTIME, TAB Furosemide (Furosemide) 40 Mg/5 Ml Solution 40 MG ORAL BID Insulin Glargine (Lantus) 100 Unit/1 Ml Insuln.pen 12 UNITS SUBQ BEDTIME, #1 EA 0 Refills Metoprolol Tartrate* (Metoprolol Tartrate*) 50 Mg Tablet 50 MG ORAL EVERY 12 HOURS, TAB Discharge Condition Upon Discharge: stable Discharge Disposition Patient was discharged to Home (01) Discharge Diagnoses: Discharge Instructions Discharge Instructions Special Instructions I have been assigned to complete a D/C Summary on this account. I was not involved in the patient management Isabel Posey NP (Vanchtein) Dec 06, 2017 10:44
--- NOTE | 2017-12-07 02:15 | Discharge Summary 2 SIG ---
DATE OF ADMISSION: 12/01/2017 DATE OF DISCHARGE: 12/03/2017 REASON FOR ADMISSION: 57-year-old male with past medical history of chronic kidney disease, congestive heart failure, diabetes, hypertension, and diabetic retinopathy, presented to emergency department for evaluation. The patient was earlier at the clinic at [facility] when he had his blood work done and checked his blood pressure since he started on the new medication. He was called later to be informed that he had elevated potassium. The patient presented to emergency department for further evaluation. He denied chest pain, shortness of breath. No back or flank pain. The patient with significant kidney disease, but not on dialysis yet. Vital signs revealed elevated blood pressure, 181/89. Potassium - 5.2. No leukocytosis. Hemoglobin -7.3, hematocrit- 21.2. BUN -92, creatinine -6.2. EKG showed normal sinus rhythm, no acute changes. The patient was admitted with diagnoses of hyperkalemia, renal failure, severe anemia, diabetes mellitus type 2, and accelerated hypertension. HOSPITAL COURSE: The patient was admitted to telemetry floor. Pulmonology, Nephrology, Cardiology, and Hematology consults were requested. The patient was placed on the telemetry floor. Kayexalate given. Electrolytes and renal parameters were closely monitored. Renal ultrasound revealed no hydronephrosis, but showed significant postvoid residual in the bladder and suspected nonobstructive stone in the left kidney. Renal parameters and electrolytes were closely monitored. Electrolytes replaced as needed. Potassium stable prior to discharge -4.2. Creatinine trending down from 6.2 to 5.3. Nephrotoxics were avoided. Per shrinking machine operator, the patient had chronic kidney disease stage 5 with glomerular filtration rate less than 15. The patient likely needs hemodialysis at this time, however patient declined to start hemodialysis. Patient wanted to follow up with [facility] Clinic when he was under continuous care. Urine toxicology screen was negative. Urinalysis revealed +2 protein and +3 occult blood, but no evidence of UTI. Blood sugar was managed with sliding scale of insulin. Hemoglobin A1c at goal, -4.9. Cardiology consult was requested for accelerated hypertension. Transportation Planning Engineer optimized antihypertensive medication regimen. The patient was on Norvasc 10 mg daily, Lopressor 50 mg b.i.d., and hydralazine 50 mg t.i.d. The patient refused hydralazine and as-needed clonidine was added to the regimen. Echocardiogram revealed preserved ejection fraction of 65% to 70%, right ventricular systolic pressure of 31, and evidence of moderate left ventricular hypertrophy. According to harness installer, the patient had diastolic dysfunction. DVT prophylaxis provided. Troponin was negative. Lipid panel was stable. TSH within normal limits. Supplemental oxygen and pulmonary toilet provided as needed. Pulse oximetry was stable on room air. Indigo Mixer had seen the patient for worsening anemia. Next day, hemoglobin - 6.8 and hematocrit -20.4. Anemia workup was ordered along with transfusion. The patient had undergone 1 unit of packed red blood cell transfusion. The patient likely had anemia of chronic disease. Iron panel was stable. Stool OB was not collected since the patient did not have stool that day. Patient was recommended to closely monitor hemoglobin and hematocrit at the clinic. The patient was stable for discharge and follow up with outpatient [facility] Clinic for AV fistula placement. FINAL DIAGNOSES: 1. End-stage renal disease with glomerular filtration rate less than 15. 2. Hyperkalemia, resolved. 3. Diabetes mellitus type 2. 4. Accelerated hypertension 5. Diastolic dysfunction. 6. Severe anemia, status post blood transfusion. 7. Hyperlipidemia. DISCHARGE MEDICATIONS: See medication reconciliation list. DISCHARGE INSTRUCTIONS: The patient discharged home. Follow up with [facility] for placement of AV fistula for hemodialysis. Reno Lujan M.D. I have been assigned to dictate discharge summary on this account and I was not involved in the patient's management. Isabel Posey (Vanchtein) N.P. DR: Hao JOB#: [id number] CC: MARY
--- NOTE | 2017-12-07 11:31 | Cardiology Report ---
APPROVED REPORT EXAM: Two-dimensional and M-mode echocardiogram with Doppler and color Doppler. INDICATION Congestive Heart Failure M-Mode DIMENSIONS IVSd1.2 (0.7-1.1cm)Left Atrium (MM)3.4 (1.6-4.0cm) LVDd5.0 (3.5-5.6cm)Aortic Root2.9 (2.0-3.7cm) PWd1.6 (0.7-1.1cm)Aortic Cusp Exc.1.8 (1.5-2.0cm) LVDs2.8 (2.5-4.0cm) PWs2.2 cm Normal left ventricular chamber size, systolic function and wall motion. Left ventricular ejection fraction estimated to be 65-70 %. Moderate left ventricular hypertrophy. Anterior Echo-free space, may be due to pericardial fat or effusion. Moderate left atrial enlargement. Right atrial size at upper limits of normal. Right ventricular chamber size is within normal limits. Moderate focal aortic valve sclerosis with adequate cusp excursion. Thickened mitral valve leaflets with normal excursion. Mitral annulus and aortic root calcification. Pulmonic valve not well visualized. Normal tricuspid valve structure. IVC at normal size with physiologic collapse. A color flow and spectral Doppler study was performed and revealed: Trace aortic regurgitation. Mild mitral regurgitation. Mitral diastolic velocities suggest reduced left ventricular relaxation c/w mild LV diastolic dysfunction (Grade I). Trace to mild tricuspid regurgitation. Tricuspid systolic velocities suggests peak right ventricular systolic pressure of 31 mmHg.
--- NOTE | 2017-12-08 16:07 | Cardiology Report ---
APPROVED REPORT EKG Measurement Heart [id number] Normal sinus rhythm Normal ECG
== END 2017-12-03 16:08 | disposition home or self-care (01) | DRG 194 ==
LOC: EMR 22:02 → EDBEDREQ 12-01 00:58 → 2E 12-01 01:20 → EDBEDREQ 12-01 01:52 → 2E 12-01 03:42 → 4W 12-01 20:34
PROC: 30233N1 Transfusion of Nonautologous Red Blood Cells into Peripheral Vein, Percutaneous Approach (ICD-10-PCS; principal; 2017-12-02)
DX: I13.2 Hypertensive heart and chronic kidney disease with heart failure and with stage 5 chronic kidney disease, or end stage renal disease (principal); N17.9 Acute kidney failure, unspecified; E11.22 Type 2 diabetes mellitus with diabetic chronic kidney disease; E87.5 Hyperkalemia; N18.6 End stage renal disease; I50.30 Unspecified diastolic (congestive) heart failure; Z99.2 Dependence on renal dialysis; D64.9 Anemia, unspecified; Z88.8 Allergy status to other drugs, medicaments and biological substances; E11.319 Type 2 diabetes mellitus with unspecified diabetic retinopathy without macular edema; I16.0 Hypertensive urgency; D63.1 Anemia in chronic kidney disease
CPT/HCPCS: 36415; 76770; 80048; 80053; 80061; 80307; 81001; 82550; 82607; 82728; 82746; 82962; 82977; 83036; 83540; 83550; 83735; 83880; 84100; 84133; 84300; 84443; 84484; 84550; 85007; 85025; 86140; 86850; 86900; 86901; 86920; 89050; 93005; 93306; 99285; J1815

== ENCOUNTER 2018-01-15 16:02 | Inpatient (IN) | payer OTHER ==
[~2018-01-15] VITALS: Ht 165.1 cm; Wt 61.7 kg
[~2018-01-15 16:02] MED LIST changes: +CATAPRES0.1 MG ORAL; +COLACE100 MG ORAL; +HYDRALAZINE HC100 MG ORAL; +LEVEMIR FL100 UNIT/1 SUBQ; +LIPITOR40 MG ORAL; +LISINOPRIL20 MG ORAL; +METOPROLOL TART50 MG ORAL; +NORVASC10 MG ORAL; +OMEPRAZOLE20 M2 ORAL
--- NOTE | 2018-01-15 16:22 | Emergency Room Report ---
History of Present Illness General Chief Complaint: Dyspnea/Respdistress Source: Patient Present Illness HPI Patient presents emergency department today complaining of acute onset of shortness of breath. Patient states that he was in dialysis. And he thought the machine was not working well. He states that it went off multiple times he was concerned about possible clots. However he was able to complete treatment. He went home and developed acute onset of shortness of breath generalized weakness chest pain. He also complains lower back pain. States that he has some cramps in his lower back a couple days ago. He also states that he recently started hepatitis B vaccine and doesn't feel well after starting the hepatitis B vaccine. Denies any jaundice. Denies any other complaints. Symptoms noted to be moderate to severe. Patient states that he follows up with his primary care physician at [facility]. His improvement analyst Dr. Ki Guerra.No other modifying factors. No other associated signs and symptoms. No other complaints were noted. Allergies: Coded Allergies: HYDRALAZINE (Verified Allergy, Unknown, 12/03/17) states"heads get wuzzy" LABETALOL (Verified Allergy, Unknown, cp, 09/08/16) Mushroom (Verified Allergy, Unknown, 06/27/17) Patient History Past Medical History: DM, HTN, CAD Past Surgical History: other - Dialysis cathter Pertinent Family History: none Social History: Denies: smoking, alcohol use, drug use Reviewed Nursing Documentation: PMH: Agreed; PSxH: Agreed Nursing Documentation-PMH Hx Cardiac Problems: Yes Hx Hypertension: Yes Hx Diabetes: Yes Hx Cancer: No Hx Gastrointestinal Problems: No Hx Dialysis: No - renal failure Hx Neurological Problems: No Review of Systems All Other Systems: negative except mentioned in HPI Physical Exam Vital Signs Date Time Temp Pulse Resp B/P (MAP) Pulse Ox O2 Delivery O2 Flow Rate FiO2 01/15/18 16:04 98.2 137 22 158/93 97 Room Air 98.2 Sp02 EP Interpretation: reviewed, normal General Appearance: alert, mild distress Head: atraumatic Eyes: bilateral eye normal inspection ENT: normal ENT inspection, hearing grossly normal, normal voice Neck: normal inspection, full range of motion, supple, no bony tend Respiratory: normal inspection, lungs clear, normal breath sounds, no respiratory distress, no retraction, no wheezing Cardiovascular #1: no edema, tachycardia, irregularly irregular Gastrointestinal: normal inspection, normal bowel sounds, non tender, soft, no guarding, no hernia Genitourinary: no CVA tenderness Musculoskeletal: normal inspection, back normal, normal range of motion Neurologic: normal inspection, alert, responsive, speech normal Psychiatric: normal inspection, judgement/insight normal, anxious Skin: normal inspection, normal color, no rash Procedures Critical Care Time Critical Care Time Patient had a critical medical condition which untreated could potentially result in life or limb threatening injury. Total critical care time excluding procedures was approximately 45 minutes. Medical Decision Making Diagnostic Impression: Primary Impression: Respiratory distress Additional Impressions: Atrial fibrillation, rapid ACS (acute coronary syndrome) ER Course Patient presents emergency department today complaining of shortness of breath. Differential diagnoses include acute pneumonia, CHF, acute coronary syndrome, pneumothorax, asthma, COPD flare, just to name a few.Given the severity of the patient's presentation I felt this is a highly complex patient. This patient required extensive workup. Patient presents with abnormal heart rhythm showing A. fib with RVR. Patient was given diltiazem which slowed her heart rate down and patient spontaneously converted. Patient requires admission for treatment of chest pain. A. fib is controlled now. Repeat EKG shows normal sinus rhythm. Case discussed with Dr. Kyler Hatch and Dr. Ki Guerra for admission. Patient will be admitted to telemetry for further treatment. Labs Test 01/15/18 16:19 01/15/18 16:49 Sodium Level 139 MMOL/L (136-145) Potassium Level 3.0 MMOL/L (3.5-5.1) Chloride Level 102 MMOL/L (98-107) Carbon Dioxide Level 27 MMOL/L (21-32) Anion Gap 10 mmol/L (5-15) Blood Urea Nitrogen 38 mg/dL (7-18) Creatinine 3.6 MG/DL (0.55-1.30) Estimat Glomerular Filtration Rate 21.2 mL/min (>60) Glucose Level 130 MG/DL (74-106) Calcium Level 8.4 MG/DL (8.5-10.1) Total Bilirubin 0.5 MG/DL (0.2-1.0) Aspartate Amino Transf (AST/SGOT) 20 U/L (15-37) Alanine Aminotransferase (ALT/SGPT) 20 U/L (12-78) Alkaline Phosphatase 164 U/L (46-116) Total Creatine Kinase 468 U/L (26-308) Creatine Kinase MB 7.0 NG/ML (0.0-3.6) Creatine Kinase MB Relative Index 1.4 Troponin I 0.089 ng/mL (0.000-0.056) Pro-B-Type Natriuretic Peptide 388 pg/mL (0-125) Total Protein 9.0 G/DL (6.4-8.2) Albumin 3.9 G/DL (3.4-5.0) Globulin 5.1 g/dL Albumin/Globulin Ratio 0.8 (1.0-2.7) White Blood Count 8.0 K/UL (4.8-10.8) Red Blood Count 2.69 M/UL (4.70-6.10) Hemoglobin 8.9 G/DL (14.2-18.0) Hematocrit 25.0 % (42.0-52.0) Mean Corpuscular Volume 93 FL (80-99) Mean Corpuscular Hemoglobin 32.9 PG (27.0-31.0) Mean Corpuscular Hemoglobin Concent 35.4 G/DL (32.0-36.0) Red Cell Distribution Width 12.5 % (11.6-14.8) Platelet Count 198 K/UL (150-450) Mean Platelet Volume 7.2 FL (6.5-10.1) Neutrophils (%) (Auto) 75.8 % (45.0-75.0) Lymphocytes (%) (Auto) 13.8 % (20.0-45.0) Monocytes (%) (Auto) 7.7 % (1.0-10.0) Eosinophils (%) (Auto) 2.1 % (0.0-3.0) Basophils (%) (Auto) 0.7 % (0.0-2.0) EKG Diagnostic Results Rate: tachycardiac Rhythm: other - irregular, afib rvr ST Segments: no acute changes Rhythm Strip Diag. Results EP Interpretation: yes Rate: 135 Rhythm: no PVC's, other - irregular, no other ectopy Chest X-Ray Diagnostic Results Chest X-Ray Diagnostic Results : Chest X-Ray Ordered: Yes # of Views/Limited/Complete: 1 View Indication: Chest Pain EP Interpretation: Yes Interpretation: no consolidation, no effusion, no pneumothorax, no acute cardiopulmonary disease, other - Right permacath Impression: No acute disease Electronically Signed by: Dr. Lea Pompa M.D. Last Vital Signs Date Time Temp Pulse Resp B/P (MAP) Pulse Ox O2 Delivery O2 Flow Rate FiO2 01/15/18 16:04 98.2 137 22 158/93 97 Room Air 98.2 Status: improved Disposition: ADMITTED INPATIENT Condition: Serious LEA POMPA M.D. Jan 15, 2018 16:22
[2018-01-15 16:25] VITALS: BP 173/86
[2018-01-15] MEDS ORDERED: Aspirin Baby 81mg ORAL ONE (16:30)
[2018-01-15] MEDS ORDERED: dilTIAZem HCl 25mg/5ml Inj IVP ONE (16:45)
[2018-01-15 17:06] LABS: BASOPHILS % (AUTO) 0.7 % (0.0-2.0); EOSINOPHILS % (AUTO) 2.1 % (0.0-3.0); HEMOGLOBIN 8.9 G/DL (14.2-18.0); LYMPHOCYTES % (AUTO) 13.8 % (20.0-45.0); MEAN CORPUSCULAR VOLUME 93 FL (80-99); MONOCYTES % (AUTO) 7.7 % (1.0-10.0); NEUTROPHILS % (AUTO) 75.8 % (45.0-75.0); PLATELET COUNT 198 K/UL (150-450); RED BLOOD COUNT 2.69 M/UL (4.70-6.10); RED CELL DISTRIBUTION WIDTH 12.5 % (11.6-14.8)
[2018-01-15 17:19] LABS: ANION GAP 10 mmol/L (5-15); BLOOD UREA NITROGEN 38 mg/dL (7-18); CALCIUM 8.4 MG/DL (8.5-10.1); CARBON DIOXIDE 27 MMOL/L (21-32); CHLORIDE 102 MMOL/L (98-107); CREATININE 3.6 MG/DL (0.55-1.30); SODIUM 139 MMOL/L (136-145)
[2018-01-15 17:27] LABS: ALANINE AMINOTRANSFERASE 20 U/L (12-78); ALBUMIN 3.9 G/DL (3.4-5.0); ALBUMIN/GLOBULIN RATIO 0.8 (1.0-2.7); ALKALINE PHOSPHATASE 164 U/L (46-116); ASPARTATE AMINO TRANSFERASE 20 U/L (15-37); BILIRUBIN,TOTAL 0.5 MG/DL (0.2-1.0); CREATINE KINASE 468 U/L (26-308)
[2018-01-15] MEDS ORDERED: FUROSEMIDE40 MG ORAL (18:13)
[2018-01-15] MEDS ORDERED: VITAMIN D250000 UNI1 ORAL (18:19)
[2018-01-15] MEDS ORDERED: COSOPT1 DRO2 RIGHT EYE (18:19)
[2018-01-15] MEDS ORDERED: FERROUS SULFAT325 MG ORAL (18:19)
[2018-01-15 18:22] VITALS: BP 157/68
[2018-01-15] MEDS ORDERED: ARTIFICIAL TEAR15 ML BOTH EYES (18:22)
[2018-01-15] MEDS ORDERED: PRAVASTATIN SOD40 M1 ORAL (18:22)
[2018-01-15 19:30] VITALS: BP 141/60
[2018-01-15 20:30] VITALS: BP 136/62
[2018-01-15 21:00] VITALS: BP 152/78
[2018-01-15] MEDS ORDERED: dilTIAZem HCl 25mg/5ml Inj IV PRN (21:00)
[2018-01-15] MEDS ORDERED: Miralax 17gm pkt ORAL PRN (21:00)
[2018-01-15] MEDS ORDERED: Ketorolac 30mg Inj IV PRN (21:00)
[2018-01-15] MEDS ORDERED: Nitroglycerin Subl 0.4mg tab SL PRN (21:00)
[2018-01-15] MEDS ORDERED: Albuterol/Ipratropium 3ml neb HHN PRN (21:00)
[2018-01-15] MEDS ORDERED: Morphine Sulfate 4mg/ml Inj IVP PRN (21:00)
[2018-01-15] MEDS ORDERED: Enalaprilat 2.5mg/2ml Inj IV PRN (21:00)
[2018-01-15] MEDS: NovoLOG Insulin Flexpen SUBQ SCH (22:00)
[2018-01-15] MEDS: Metoprolol Tartrate 50mg tab ORAL SCH (22:14)
[2018-01-15] MEDS: Heparin 5000 units/ml inj SUBQ SCH (22:18)
[2018-01-15 23:15] LABS: APPEARANCE,URINE CLEAR; BILIRUBIN, URINE NEGATIVE (NEGATIVE); COLOR,URINE PALE YELLOW; GLUCOSE, URINE (UA) NEGATIVE (NEGATIVE); KETONES,URINE NEGATIVE (NEGATIVE); LEUKOCYTE ESTERASE ,URINE 2+ (NEGATIVE); NITRITE,URINE NEGATIVE (NEGATIVE); PH,URINE 5 (4.5-8.0); PROTEIN,URINE 2+ (NEGATIVE); UROBILINOGEN,URINE NORMAL MG/DL (0.0-1.0)
[2018-01-16] VITALS: BP 137/72
[2018-01-16 04:00] VITALS: BP 142/69
[2018-01-16] MEDS: Heparin 5000 units/ml inj SUBQ SCH ×3 (06:00→21:10)
[2018-01-16] MEDS: NovoLOG Insulin Flexpen SUBQ SCH ×4 (06:07→21:11)
[2018-01-16 08:00] VITALS: BP 146/74
[2018-01-16] MEDS: Aspirin Baby 81mg ORAL SCH (08:47)
[2018-01-16] MEDS: Metoprolol Tartrate 50mg tab ORAL SCH ×2 (08:51→21:08)
[2018-01-16 09:01] LABS: BASOPHILS % (AUTO) 0.7 % (0.0-2.0); EOSINOPHILS % (AUTO) 2.6 % (0.0-3.0); HEMATOCRIT 25.2 % (42.0-52.0); HEMOGLOBIN 8.5 G/DL (14.2-18.0); LYMPHOCYTES % (AUTO) 22.2 % (20.0-45.0); MEAN CORPUSCULAR VOLUME 97 FL (80-99); NEUTROPHILS % (AUTO) 67.6 % (45.0-75.0); PLATELET COUNT 206 K/UL (150-450); RED BLOOD COUNT 2.61 M/UL (4.70-6.10); RED CELL DISTRIBUTION WIDTH 12.7 % (11.6-14.8); WHITE BLOOD COUNT 5.9 K/UL (4.8-10.8)
--- NOTE | 2018-01-16 09:05 | Consultation ---
Consult Note Consult Note Patient presents emergency department today complaining of acute onset of shortness of breath. Patient states that he was in dialysis. And he thought the machine was not working well. He states that it went off multiple times he was concerned about possible clots. However he was able to complete treatment. He went home and developed acute onset of shortness of breath generalized weakness chest pain. He also complains lower back pain. States that he has some cramps in his lower back a couple days ago. He also states that he recently started hepatitis B vaccine and doesn't feel well after starting the hepatitis B vaccine. Denies any jaundice. Denies any other complaints. Symptoms noted to be moderate to severe. Patient states that he follows up with his primary care physician at [facility]. His vending machine attendant Dr. Abdoul Guerra.No other modifying factors. No other associated signs and symptoms. No other complaints were noted. Allergies: Coded Allergies: HYDRALAZINE (Verified Allergy, Unknown, 12/03/17) states"heads get wuzzy" LABETALOL (Verified Allergy, Unknown, cp, 09/08/16) Mushroom (Verified Allergy, Unknown, 06/27/17) Patient History Past Medical History: DM, HTN, CAD Past Surgical History: other - Dialysis cathter Pertinent Family History: none Social History: Denies: smoking, alcohol use, drug use Reviewed Nursing Documentation: PMH: Agreed; PSxH: Agreed Nursing Documentation-PMH Hx Cardiac Problems: Yes Hx Hypertension: Yes Hx Diabetes: Yes Hx Cancer: No Hx Gastrointestinal Problems: No Hx Dialysis: No - renal failure Hx Neurological Problems: No Assessment/Plan Atrial Fib, converted (1) ESRD on HD (2) Chronic kidney disease (3) Anemia (4) HTN (hypertension) (5) h/o LOw Ca (6) DM Plan Patient has ESRD dialysis last 01/15 as OP SHI kidney noted on previous admission Echo Noted BP meds adjustments done Phos lo & Vit D PO monitor calcium ABDOUL GUERRA Jan 16, 2018 09:05
--- NOTE | 2018-01-16 09:28 | Diagnostic Imaging Report ---
Indication: Cough Technique: XRAY Chest 1v Comparison: 12/28/2017 Findings: There is a right internal jugular permacath. Cardiomediastinal silhouette is stable. There is no consolidation or pleural effusion. Osseous structures are stable. Impression: No acute cardiopulmonary disease. Right internal jugular permacath.
[2018-01-16 09:53] LABS: CHOLESTEROL 199 MG/DL (< 200); HDL CHOLESTEROL 80 MG/DL (40-60); TRIGLYCERIDES 49 MG/DL (30-150)
[2018-01-16] MEDS: Meclizine 25mg tab ORAL SCH ×2 (10:00→17:04)
[2018-01-16 12:00] VITALS: BP 114/66
[2018-01-16] MEDS: Docusate 100mg cap ORAL SCH ×2 (12:09→18:12)
[2018-01-16] MEDS: Calcium Acetate 667mg Tab ORAL SCH ×2 (12:09→16:19)
--- NOTE | 2018-01-16 14:48 | Consultation ---
History of Present Illness General Date patient seen: Jan 16, 2018 Chief Complaint: Dyspnea/Respdistress Reason for Consultation: chest pain and dyspnea Present Illness HPI 57 year old male with hx of ESRF on HD, HTN, DM presented to ER complaining of acute onset of shortness of breath in dialysis center. And he thought the machine was not working well. He states that it went off multiple times he was concerned about possible clots. However he was able to complete treatment. He went home and developed acute onset of shortness of breath generalized weakness chest pain. He thinks now that all of his symptoms might have been because of anxiety and fear of getting blood clots. Allergies: Coded Allergies: HYDRALAZINE (Verified Allergy, Unknown, 12/03/17) states"heads get wuzzy" LABETALOL (Verified Allergy, Unknown, cp, 09/08/16) Mushroom (Verified Allergy, Unknown, 06/27/17) Medication History Scheduled Amlodipine Besylate (Norvasc), 10 MG ORAL DAILY, (Reported) Aspirin* (Aspir 81*), 81 MG ORAL DAILY, (Reported) Dextran 70/Hypromellose (Artificial Tears Eye Drops*), 1 DROP BOTH EYES BID, ( Reported) Docusate Sodium* (Colace*), 100 MG ORAL THREE TIMES A DAY, (Reported) Dorzolamide HCl/Timolol Maleat (Dorzolamide-Timolol Eye Drops), 1 DROP RIGHT EYE BID, (Reported) Ergocalciferol (Vitamin D2)* (Vitamin D*), 50,000 UNIT ORAL ONCE A WEEK, ( Reported) Ferrous Sulfate* (Ferrous Sulfate*), 325 MG ORAL DAILY, (Reported) Furosemide* (Lasix*), 40 MG ORAL DAILY, (Reported) Insulin Glargine (Lantus), 12 UNITS SUBQ BEDTIME, (Reported) Metoprolol Tartrate* (Metoprolol Tartrate*), 50 MG ORAL EVERY 12 HOURS, ( Reported) Pravastatin Sod (Pravastatin Sod), 40 MG ORAL BEDTIME, (Reported) Sodium Polystyrene Sulfonate (Sodium Polystyrene Sulfonate), 15 GM PO DAILY, ( Reported) Discontinued Medications Atorvastatin Calcium* (Lipitor*), 40 MG ORAL BEDTIME, (Reported) Discontinued Reason: Pt stopped taking med Clonidine Hcl* (Catapres*), 0.1 MG ORAL EVERY 8 HOURS, (Reported) Discontinued Reason: Pt stopped taking med Codeine/Promethazine Hcl* (Promethazine-Codeine Syrup*), 5 ML ORAL Q6H PRN for For Cough Discontinued Reason: Pt stopped taking med Hydralazine Hcl* (Hydralazine Hcl*), 100 MG ORAL EVERY 8 HOURS, (Reported) Discontinued Reason: Pt stopped taking med Insulin Detemir (Levemir Flexpen), 15 SUBQ BEDTIME, (Reported) Discontinued Reason: Pt stopped taking med Lisinopril (Lisinopril*), 20 MG ORAL BID, (Reported) Discontinued Reason: Pt stopped taking med Omeprazole (Omeprazole), 20 MG ORAL DAILY, (Reported) Discontinued Reason: Pt stopped taking med Patient History Healthcare decision maker Resuscitation status Full Code Advanced Directive on File No Past Medical/Surgical History Past Medical/Surgical History: (1) CKD (chronic kidney disease) stage 5, GFR less than 15 ml/min (2) DM2 (diabetes mellitus, type 2) (3) HTN (hypertension) Review of Systems Constitutional: Reports: malaise Respiratory: Reports: shortness of breath Physical Exam General Appearance: WD/WN Lines, tubes and drains: peripheral HEENT: normocephalic Neck: non-tender, normal alignment Respiratory/Chest: chest wall non-tender, lungs clear Cardiovascular/Chest: normal peripheral pulses Abdomen: normal bowel sounds Genitourinary/Rectal: normal genital exam Extremities: normal range of motion Last 24 Hour Vital Signs Date Time Temp Pulse Resp B/P (MAP) Pulse Ox O2 Delivery O2 Flow Rate FiO2 01/16/18 12:00 98.1 60 18 114/66 98 Room Air 98.1 01/16/18 12:00 60 01/16/18 08:51 72 146/74 01/16/18 08:48 72 146/74 01/16/18 08:19 66 18 Room Air 01/16/18 08:00 97.9 72 18 146/74 98 Room Air 97.9 01/16/18 08:00 66 01/16/18 04:00 97.9 57 20 142/69 100 Room Air 97.9 01/16/18 04:00 55 01/16/18 00:00 97.7 74 20 137/72 96 Room Air 97.7 01/16/18 00:00 64 01/15/18 22:14 68 152/78 01/15/18 21:00 97.3 68 19 152/78 96 Room Air 97.3 01/15/18 20:50 98.5 66 16 136/62 96 Room Air 98.5 01/15/18 20:30 98.5 66 16 136/62 96 Room Air 98.5 01/15/18 19:30 98.4 70 16 141/60 97 Room Air 98.4 01/15/18 18:22 72 17 157/68 100 Room Air 01/15/18 16:56 97 173/86 01/15/18 16:25 97 14 173/86 100 Room Air 01/15/18 16:25 97 14 Room Air 01/15/18 16:04 98.2 137 22 158/93 97 Room Air 98.2 Intake and Output 01/15/18 01/16/18 19:00 07:00 Intake Total 0 ml Balance 0 ml Intake Oral 0 ml # Voids 3 Laboratory Tests Test 01/15/18 16:19 01/15/18 16:49 01/15/18 22:00 01/16/18 07:48 Sodium Level 139 MMOL/L (136-145) Potassium Level 3.0 MMOL/L (3.5-5.1) L Chloride Level 102 MMOL/L (98-107) Carbon Dioxide Level 27 MMOL/L (21-32) Anion Gap 10 mmol/L (5-15) Blood Urea Nitrogen 38 mg/dL (7-18) H Creatinine 3.6 MG/DL (0.55-1.30) H Estimat Glomerular Filtration Rate 21.2 mL/min (>60) Glucose Level 130 MG/DL (74-106) H Calcium Level 8.4 MG/DL (8.5-10.1) L Total Bilirubin 0.5 MG/DL (0.2-1.0) Aspartate Amino Transf (AST/SGOT) 20 U/L (15-37) Alanine Aminotransferase (ALT/SGPT) 20 U/L (12-78) Alkaline Phosphatase 164 U/L (46-116) H Total Creatine Kinase 468 U/L (26-308) H Creatine Kinase MB 7.0 NG/ML (0.0-3.6) H Creatine Kinase MB Relative Index 1.4 Troponin I 0.089 ng/mL (0.000-0.056) Pro-B-Type Natriuretic Peptide 388 pg/mL (0-125) H Total Protein 9.0 G/DL (6.4-8.2) H Albumin 3.9 G/DL (3.4-5.0) Globulin 5.1 g/dL Albumin/Globulin Ratio 0.8 (1.0-2.7) L White Blood Count 8.0 K/UL (4.8-10.8) 5.9 K/UL (4.8-10.8) Red Blood Count 2.69 M/UL (4.70-6.10) L 2.61 M/UL (4.70-6.10) L Hemoglobin 8.9 G/DL (14.2-18.0) L 8.5 G/DL (14.2-18.0) L Hematocrit 25.0 % (42.0-52.0) L 25.2 % (42.0-52.0) L Mean Corpuscular Volume 93 FL (80-99) 97 FL (80-99) Mean Corpuscular Hemoglobin 32.9 PG (27.0-31.0) H 32.4 PG (27.0-31.0) H Mean Corpuscular Hemoglobin Concent 35.4 G/DL (32.0-36.0) 33.6 G/DL (32.0-36.0) Red Cell Distribution Width 12.5 % (11.6-14.8) 12.7 % (11.6-14.8) Platelet Count 198 K/UL (150-450) 206 K/UL (150-450) Mean Platelet Volume 7.2 FL (6.5-10.1) 7.3 FL (6.5-10.1) Neutrophils (%) (Auto) 75.8 % (45.0-75.0) H 67.6 % (45.0-75.0) Lymphocytes (%) (Auto) 13.8 % (20.0-45.0) L 22.2 % (20.0-45.0) Monocytes (%) (Auto) 7.7 % (1.0-10.0) 7.0 % (1.0-10.0) Eosinophils (%) (Auto) 2.1 % (0.0-3.0) 2.6 % (0.0-3.0) Basophils (%) (Auto) 0.7 % (0.0-2.0) 0.7 % (0.0-2.0) Urine Color Pale yellow Urine Appearance Clear Urine pH 5 (4.5-8.0) Urine Specific [place] 1.010 (1.005-1.035) Urine Protein 2+ (NEGATIVE) H Urine Glucose (UA) Negative (NEGATIVE) Urine Ketones Negative (NEGATIVE) Urine Occult Blood 4+ (NEGATIVE) H Urine Nitrite Negative (NEGATIVE) Urine Bilirubin Negative (NEGATIVE) Urine Urobilinogen Normal MG/DL (0.0-1.0) Urine Leukocyte Esterase 2+ (NEGATIVE) H Urine RBC 2-4 /HPF (0 - 0) H Urine WBC 10-15 /HPF (0 - 0) H Urine Squamous Epithelial Cells Occasional /LPF Urine Bacteria Moderate /HPF (NONE) H Urine Eosinophils None seen Urine Random Sodium 46 mmol/L (20-110) Urine Potassium Timed 13 mmol/L (12-62) Prothrombin Time 10.7 SEC (9.30-11.50) Prothromb Time International Ratio 1.0 (0.9-1.1) Activated Partial Thromboplast Time 26 SEC (23-33) C-Reactive Protein, Quantitative 0.5 mg/dL (0.00-0.90) Triglycerides Level 49 MG/DL (30-150) Cholesterol Level 199 MG/DL (< 200) LDL Cholesterol 112 mg/dL (<100) H HDL Cholesterol 80 MG/DL (40-60) H Cholesterol/HDL Ratio 2.5 (3.3-4.4) L Thyroid Stimulating Hormone (TSH) 1.283 uiU/mL (0.358-3.740) Height (Feet): 5 Height (Inches): 5.00 Weight (Pounds): 136 Medications Current Medications Medications (Trade) Dose Ordered Sig/Yannick Route PRN Reason Start Time Stop Time Status Last Admin Dose Admin Acetaminophen (Tylenol) 650 mg Q4H PRN ORAL FEVER 01/15/18 21:00 02/14/18 20:59 Albuterol/ Ipratropium (Albuterol/ Ipratropium) 3 ml Q4H PRN HHN Shortness of Breath 01/15/18 21:00 01/20/18 20:59 Amlodipine Besylate (Norvasc) 10 mg DAILY ORAL 01/16/18 09:00 02/15/18 08:59 01/16/18 08:48 Aspirin (ASA) 162 mg DAILY ORAL 01/16/18 09:00 02/15/18 08:59 01/16/18 08:47 Calcium Acetate (Phoslo) 1,334 mg TIAC ORAL 01/16/18 11:30 02/15/18 11:29 01/16/18 12:09 Dextrose (Dextrose 50%) 25 ml STAT PRN IV Hypoglycemia BS BTWN 60-69 01/15/18 21:15 02/14/18 21:14 Dextrose (Dextrose 50%) 50 ml STAT PRN IV Hypoglycemia 01/15/18 21:00 02/14/18 20:59 Diltiazem HCl (Cardizem) 10 mg Q1H PRN IV HR > 120 01/15/18 21:00 02/14/18 20:59 Docusate Sodium (Colace) 100 mg THREE TIMES A DAY ORAL 01/16/18 13:00 02/15/18 12:59 01/16/18 12:09 Epoetin Siddhartha (Procrit (for ESRD on dialysis)) 10,000 units MON-WED-WED SUBQ 01/17/18 21:00 02/16/18 20:59 Ergocalciferol (Drisdol) 50,000 intlu QWEEK ORAL 01/17/18 09:00 02/16/18 08:59 Heparin Sodium (Porcine) (Heparin 5000 units/ml) 5,000 units EVERY 8 HOURS SUBQ 01/15/18 22:00 02/14/18 21:59 01/15/18 22:18 Insulin Aspart (NovoLOG) BEFORE MEALS AND HS SUBQ 01/15/18 22:00 02/14/18 21:59 Lisinopril (Zestril) 10 mg BID ORAL 01/16/18 18:00 02/15/18 17:59 Meclizine HCl (Antivert) 12.5 mg BID ORAL 01/16/18 10:00 02/15/18 09:59 Metoprolol Tartrate (Lopressor) 50 mg EVERY 12 HOURS ORAL 01/15/18 21:30 02/14/18 21:29 01/16/18 08:51 Morphine Sulfate (Morphine Sulfate) 2 mg Q4H PRN IVP severe Pain (Pain Scale 7-10) 01/15/18 21:00 01/22/18 20:59 Nitroglycerin (Ntg) 0.4 mg Q5M PRN SL Prn Chest Pain 01/15/18 21:00 02/14/18 20:59 Ondansetron HCl (Zofran) 4 mg Q6H PRN IVP Nausea & Vomiting 01/15/18 21:00 02/14/18 20:59 Pantoprazole (Protonix) 40 mg DAILY ORAL 01/16/18 09:00 02/15/18 08:59 01/16/18 08:47 Polyethylene Glycol (Miralax) 17 gm DAILYPRN PRN ORAL Constipation 01/15/18 21:00 02/14/18 20:59 Pravastatin Sodium (Pravachol) 40 mg BEDTIME ORAL 01/15/18 21:00 02/14/18 20:59 01/15/18 22:14 Temazepam (Restoril) 15 mg HSPRN PRN ORAL Insomnia 01/15/18 21:00 01/22/18 20:59 Assessment/Plan Problem List: (1) ACS (acute coronary syndrome) ICD Codes: I24.9 - Acute ischemic heart disease, unspecified SNOMED: 698729177 (2) Respiratory distress ICD Codes: R06.03 - Acute respiratory distress SNOMED: 285795578 (3) DM2 (diabetes mellitus, type 2) ICD Codes: E11.9 - Type 2 diabetes mellitus without complications SNOMED: 93435069 (4) CKD (chronic kidney disease) stage 5, GFR less than 15 ml/min ICD Codes: N18.5 - Chronic kidney disease, stage 5 SNOMED: 247566970 (5) HTN (hypertension) ICD Codes: I10 - Essential (primary) hypertension SNOMED: 45968988 Assessment/Plan respiratory treatment titrate fio2 to sat of 92% sliding scale diabetic diet HD by nephrology echo serial troponin Jose Bashir MD Jan 16, 2018 14:48
[2018-01-16 16:00] VITALS: BP 142/79
--- NOTE | 2018-01-16 16:15 | History and Physical Report ---
DATE OF ADMISSION: 01/15/2018 CONSULTANTS: 1. Jose Bashir M.D. 2. Tucker Herrmann M.D. 3. iK Guerra M.D. CHIEF COMPLAINT: Shortness of breath, CHF, and ESRD, on dialysis. BRIEF HISTORY: A 57-year-old male, recently diagnosed with ESRD, going through dialysis, became very anxious and short of breath, came to [facility], admitted, diagnosed with atrial fibrillation with rapid ventricular response, shortness of breath, CHF, ESRD, and admitted to telemetry for further care. Currently slightly anxious in bed, oriented x3, in no acute distress. PAST MEDICAL HISTORY: ESRD, hypertension, diabetes, and CHF. PAST SURGICAL HISTORY: Shunt. MEDICATIONS: Norvasc, aspirin, Protonix, NovoLog, heparin, Lopressor, Pravachol, albuterol, nitroglycerin, Tylenol, Toradol, MiraLAX, Restoril, and Cardizem. ALLERGIES: Hydralazine, labetalol, and mushroom. SOCIAL HISTORY: No smoking. No alcohol. No intravenous drug abuse. FAMILY HISTORY: Noncontributory. PHYSICAL EXAMINATION: GENERAL: Calm, slightly anxious in bed, oriented x3, in no acute distress. VITAL SIGNS: Temperature is 97 degrees, pulse is 57, respirations 20, and blood pressure 142/69. CARDIOVASCULAR: No murmur. LUNGS: Distant and clear. ABDOMEN: Bowel sounds positive. Nontender. Nondistended. EXTREMITIES: No cyanosis, clubbing, or edema. NEUROLOGIC: The patient moves all extremities, slightly weak. LABORATORY AND DIAGNOSTIC DATA: Labs at this show hemoglobin of 8.9, otherwise, CBC is normal. BMP shows potassium 3, BUN and creatinine 30/2.6, glucose 130, troponin 0.089. Urinalysis shows 2+ leukocyte esterase. ASSESSMENT: 1. Atrial fibrillation with rapid ventricular response. 2. Shortness of breath. 3. Anemia. 4. Congestive heart failure. 5. End-stage renal disease, on dialysis. 6. Hypertension. 7. Diabetes. 8. Urinary tract infection. PLAN: 1. Continue previous medications. 2. O2 and pulmonary treatment. 3. Antibiotic per Infectious Disease. 4. Blood pressure and blood sugar control. 5. Dialysis p.r.n. 6. OT, PT, and Dietary evaluation. 7. CBC and BMP morning. Kyler Hatch D.O. DR: DEV JOB#: [id number] CC:
--- NOTE | 2018-01-16 16:53 | Cardiac Electrophysiology PN ---
Subjective Subjective [id number] Objective Last 24 Hour Vital Signs Date Time Temp Pulse Resp B/P (MAP) Pulse Ox O2 Delivery O2 Flow Rate FiO2 01/16/18 12:00 98.1 60 18 114/66 98 Room Air 98.1 01/16/18 12:00 60 01/16/18 08:51 72 146/74 01/16/18 08:48 72 146/74 01/16/18 08:19 66 18 Room Air 01/16/18 08:00 97.9 72 18 146/74 98 Room Air 97.9 01/16/18 08:00 66 01/16/18 04:00 97.9 57 20 142/69 100 Room Air 97.9 01/16/18 04:00 55 01/16/18 00:00 97.7 74 20 137/72 96 Room Air 97.7 01/16/18 00:00 64 01/15/18 22:14 68 152/78 01/15/18 21:00 97.3 68 19 152/78 96 Room Air 97.3 01/15/18 20:50 98.5 66 16 136/62 96 Room Air 98.5 01/15/18 20:30 98.5 66 16 136/62 96 Room Air 98.5 01/15/18 19:30 98.4 70 16 141/60 97 Room Air 98.4 01/15/18 18:22 72 17 157/68 100 Room Air 01/15/18 16:56 97 173/86 Intake and Output 01/15/18 01/16/18 19:00 07:00 Intake Total 0 ml Balance 0 ml Intake Oral 0 ml # Voids 3 Laboratory Tests Test 01/15/18 22:00 01/16/18 07:48 Urine Color Pale yellow Urine Appearance Clear Urine pH 5 (4.5-8.0) Urine Specific [place] 1.010 (1.005-1.035) Urine Protein 2+ (NEGATIVE) H Urine Glucose (UA) Negative (NEGATIVE) Urine Ketones Negative (NEGATIVE) Urine Occult Blood 4+ (NEGATIVE) H Urine Nitrite Negative (NEGATIVE) Urine Bilirubin Negative (NEGATIVE) Urine Urobilinogen Normal MG/DL (0.0-1.0) Urine Leukocyte Esterase 2+ (NEGATIVE) H Urine RBC 2-4 /HPF (0 - 0) H Urine WBC 10-15 /HPF (0 - 0) H Urine Squamous Epithelial Cells Occasional /LPF Urine Bacteria Moderate /HPF (NONE) H Urine Eosinophils None seen Urine Random Sodium 46 mmol/L (20-110) Urine Potassium Timed 13 mmol/L (12-62) White Blood Count 5.9 K/UL (4.8-10.8) Red Blood Count 2.61 M/UL (4.70-6.10) L Hemoglobin 8.5 G/DL (14.2-18.0) L Hematocrit 25.2 % (42.0-52.0) L Mean Corpuscular Volume 97 FL (80-99) Mean Corpuscular Hemoglobin 32.4 PG (27.0-31.0) H Mean Corpuscular Hemoglobin Concent 33.6 G/DL (32.0-36.0) Red Cell Distribution Width 12.7 % (11.6-14.8) Platelet Count 206 K/UL (150-450) Mean Platelet Volume 7.3 FL (6.5-10.1) Neutrophils (%) (Auto) 67.6 % (45.0-75.0) Lymphocytes (%) (Auto) 22.2 % (20.0-45.0) Monocytes (%) (Auto) 7.0 % (1.0-10.0) Eosinophils (%) (Auto) 2.6 % (0.0-3.0) Basophils (%) (Auto) 0.7 % (0.0-2.0) Prothrombin Time 10.7 SEC (9.30-11.50) Prothromb Time International Ratio 1.0 (0.9-1.1) Activated Partial Thromboplast Time 26 SEC (23-33) C-Reactive Protein, Quantitative 0.5 mg/dL (0.00-0.90) Triglycerides Level 49 MG/DL (30-150) Cholesterol Level 199 MG/DL (< 200) LDL Cholesterol 112 mg/dL (<100) H HDL Cholesterol 80 MG/DL (40-60) H Cholesterol/HDL Ratio 2.5 (3.3-4.4) L Thyroid Stimulating Hormone (TSH) 1.283 uiU/mL (0.358-3.740) Tucker Herrmann MD Jan 16, 2018 16:53
[2018-01-16] MEDS: Lisinopril 10mg tab ORAL SCH (18:12)
[2018-01-16 20:00] VITALS: BP 135/77
--- NOTE | 2018-01-16 20:00 | Consultation ---
DATE OF CONSULTATION: 01/16/2018 CARDIOLOGY CONSULTATION REFERRING PHYSICIAN: Kyler Hatch D.O. REASON FOR CONSULTATION: Congestive heart failure, atrial fibrillation, and rapid ventricular response. HISTORY OF PRESENT ILLNESS: The patient is a 57-year-old gentleman with history of hypertension and recently diagnosed end-stage renal disease, who was started on hemodialysis about two weeks ago, presented to the emergency room for increasing shortness of breath. The patient was noted to be in atrial fibrillation with rapid ventricular response with heart rate of 135 beats per minute. The patient subsequently converted to sinus rhythm and Cardiology consultation was obtained for further evaluation and management. PAST MEDICAL HISTORY: 1. Hypertension. 2. Diabetes. 3. Congestive heart failure. 4. Atrial fibrillation. 5. End-stage renal disease, on hemodialysis. 6. Anemia. MEDICATIONS: Per reconciliation. ALLERGIES: He is allergic to labetalol, hydralazine, and mushroom. SOCIAL HISTORY: He lives at home. Does not smoke or drink alcohol. FAMILY HISTORY: Noncontributory. REVIEW OF SYSTEMS: Review of systems was performed and was negative other than what was mentioned in the history of present illness. PHYSICAL EXAMINATION: VITAL SIGNS: Blood pressure is 114/66, pulse 60, respirations 18, and he is afebrile. HEAD AND NECK: Showed no JVD or carotid bruits. LUNGS: Clear. He has dialysis catheter in the right chest. CARDIOVASCULAR: Shows regular S1 and S2 with no gallop or murmur. ABDOMEN: Soft. EXTREMITIES: Trace pitting edema. LABORATORY DATA: Show white count of 5.9, hemoglobin 8.5, hematocrit 25.2, and platelet count of 206,000. Sodium 139, potassium 3.0, BUN of 30, creatinine 3.6, and glucose of 130. Troponin is 0.089. ASSESSMENT AND PLAN: 1. Troponin elevation. This is likely due to the patient's renal failure. The patient does not have any chest pain. However, completely rule out myocardial infarction protocol and repeat echocardiogram. The patient also underwent an echocardiogram, which showed ejection fraction of 55%. 2. Bilateral lower extremity edema. His lower extremity Doppler was negative for deep venous thrombosis. 3. Atrial fibrillation and rapid ventricular response. The patient is converted to sinus rhythm. The patient is on metoprolol 50 mg b.i.d. and that will be continued. I would switch amlodipine to Cardizem CD 360 mg daily to give better control of his heart rate also. 4. End-stage renal disease, on hemodialysis. 5. Anemia, on Epogen. Thank you very much for allowing me to participate in the care of this patient. Please do not hesitate to contact me for any questions regarding my evaluation. Tucker Herrmann M.D. DR: Iliana JOB#: [id number] CC:
[2018-01-16] MEDS: dilTIAZem HCl 60mg tab ORAL SCH (21:08)
--- NOTE | 2018-01-16 21:53 | Consultation ---
Consult Note Consult Note ID DIC # [id number] Jose F Dougherty MD Jan 16, 2018 21:53
--- NOTE | 2018-01-16 23:45 | Consultation ---
DATE OF CONSULTATION: 01/16/2018 INFECTIOUS DISEASE CONSULTATION CONSULTING PHYSICIAN: Jose F Dougherty M.D. REQUESTING PHYSICIAN: Kyler Hatch D.O. REASON FOR CONSULTATION: Evaluation of the patient for shortness of breath, possible pneumonia, antibiotic management. HISTORY OF PRESENT ILLNESS: The patient is a 57-year-old male with multiple medical problems, who is well known to our service from recent admission. The patient was receiving dialysis and felt short of breath, also appears to be anxious according to records. The patient was found to have atrial fibrillation with rapid ventricular response. The patient attributes the symptoms due to recent hepatitis B vaccination few days prior. The patient has scant cough yesterday that has been resolved. Shortness of breath have been improved. The patient does not have fever or chills. Infectious Disease consultation has been requested for further evaluation of the patient. PAST MEDICAL HISTORY: 1. History of human immunodeficiency virus and hepatitis B/C negative. 2. History of end-stage renal disease on hemodialysis, status post hemodialysis catheter placement on 12/30/2017. 3. Hypertension. 4. Diabetes. 5. Anemia. 6. Probable congestive heart failure. 7. Sepsis. ALLERGIES: History of allergy to antibiotics. FAMILY HISTORY: Not contributing. SOCIAL HISTORY: Unremarkable. MEDICATIONS: Off of antibiotics. PHYSICAL EXAMINATION: VITAL SIGNS: Temperature 97.2, pulse 86, respiratory rate 18, and blood pressure 135/77. HEENT: No pale conjunctivae. No icterus. NECK: No lymphadenopathy. CHEST: Clear. HEART: S1, S2. ABDOMEN: Soft. EXTREMITIES: No cyanosis at this time. NEUROLOGIC: Awake. LABORATORY AND DIAGNOSTIC DATA: White blood cells 5.9, hemoglobin 8.5, and platelets 206. UA, 10 to 15 white blood cells. BUN 38, creatinine 3.6. AST, ALT Unremarkable. Alkaline phosphatase 164. Urine culture is pending. Chest x-ray, no acute cardiopulmonary disease. ASSESSMENT: The patient is a 57-year-old male with multiple problems as listed above, who has: 1. Atrial fibrillation with rapid ventricular response. 2. Normal white blood cells. 3. No evidence of pneumonia. PLAN: 1. We will monitor the patient off of antibiotics. 2. Monitor pending cultures. 3. Monitor CBC. 4. Monitor BMP. 5. Monitor chest x-ray. 6. We will follow Nephrology and recommendations. Jose F Dougherty M.D. DR: JACOBO JOB#: [id number] CC:
[2018-01-17] VITALS: BP 145/80
[2018-01-17 04:00] VITALS: BP 135/70
[2018-01-17] MEDS: Calcium Acetate 667mg Tab ORAL SCH ×3 (05:43→17:00)
[2018-01-17] MEDS: dilTIAZem HCl 60mg tab ORAL SCH ×3 (05:43→21:21)
[2018-01-17] MEDS: Heparin 5000 units/ml inj SUBQ SCH ×3 (05:46→21:23)
[2018-01-17] MEDS: NovoLOG Insulin Flexpen SUBQ SCH ×4 (05:47→20:37)
[2018-01-17 08:00] VITALS: BP 151/77
[2018-01-17] MEDS ORDERED: Metoprolol 25mg tab ONE (08:49)
[2018-01-17] MEDS ORDERED: Lisinopril 2.5mg tab ONE (08:50)
[2018-01-17] MEDS: Lisinopril 10mg tab ORAL SCH ×2 (08:56→17:37)
[2018-01-17] MEDS: Metoprolol Tartrate 50mg tab ORAL SCH ×2 (08:57→20:35)
[2018-01-17] MEDS: Aspirin Baby 81mg ORAL SCH (08:59)
[2018-01-17] MEDS: Docusate 100mg cap ORAL SCH ×3 (08:59→17:36)
[2018-01-17] MEDS: Meclizine 25mg tab ORAL SCH ×2 (09:00→17:13)
[2018-01-17] MEDS ORDERED: Vitamin D 50,000 units cap ORAL SCH (09:00)
[2018-01-17 10:03] LABS: HEMATOCRIT 22.2 % (42.0-52.0); HEMOGLOBIN 7.8 G/DL (14.2-18.0); MEAN CORPUSCULAR VOLUME 95 FL (80-99); PLATELET COUNT 190 K/UL (150-450); RED BLOOD COUNT 2.33 M/UL (4.70-6.10); RED CELL DISTRIBUTION WIDTH 12.6 % (11.6-14.8); WHITE BLOOD COUNT 7.2 K/UL (4.8-10.8)
[2018-01-17 10:48] LABS: CREATINE KINASE 291 U/L (26-308); GAMMA GLUTAMYL TRANSPEPTIDASE 16 U/L (5-85); PHOSPHORUS 5.6 MG/DL (2.5-4.9)
--- NOTE | 2018-01-17 11:16 | Infectious Diseases Prog Note ---
Assessment/Plan Assessment/Plan ASSESSMENT: The patient is a 57-year-old male with multiple problems as listed above, who has: 1.Dyspnea, improving 2.Atrial fibrillation with rapid ventricular response. 3. Normal white blood cells. 4. No evidence of pneumonia. -Chest x-ray, no acute cardiopulmonary disease. -History of human immunodeficiency virus and hepatitis B/C negative. -History of end-stage renal disease on hemodialysis, status post hemodialysis catheter placement on 12/30/2017. -Hypertension. - Diabetes. -. Anemia. - Probable congestive heart failure. PLAN: \\-. We will monitor the patient off of antibiotics. -. Monitor CBC. -. Monitor BMP. -. Monitor chest x-ray. Subjective Allergies: Coded Allergies: HYDRALAZINE (Verified Allergy, Unknown, 12/03/17) states"heads get wuzzy" LABETALOL (Verified Allergy, Unknown, cp, 09/08/16) Mushroom (Verified Allergy, Unknown, 06/27/17) Subjective afebrile no leukocytosis off abx Objective Vital Signs Last 24 Hour Vital Signs Date Time Temp Pulse Resp B/P (MAP) Pulse Ox O2 Delivery O2 Flow Rate FiO2 01/17/18 09:47 65 18 Room Air 01/17/18 08:57 65 151/77 01/17/18 08:56 151/77 01/17/18 08:00 97.8 65 20 151/77 100 Room Air 97.8 01/17/18 08:00 62 01/17/18 05:43 61 135/70 01/17/18 04:00 97.7 65 18 135/70 99 Room Air 97.7 01/17/18 04:00 61 01/17/18 00:00 97.5 64 18 145/80 99 Room Air 97.5 01/17/18 00:00 70 01/16/18 21:08 72 135/77 01/16/18 21:08 72 135/77 01/16/18 20:06 72 18 Room Air 01/16/18 20:00 97.2 71 18 135/77 100 Room Air 97.2 01/16/18 20:00 74 01/16/18 18:12 114/66 01/16/18 16:00 64 01/16/18 16:00 97.9 70 18 142/79 100 Room Air 97.9 01/16/18 12:00 98.1 60 18 114/66 98 Room Air 98.1 01/16/18 12:00 60 Height (Feet): 5 Height (Inches): 5.00 Weight (Pounds): 136 Objective HEENT: No pale conjunctivae. No icterus. NECK: No lymphadenopathy. CHEST: Clear. HEART: S1, S2. ABDOMEN: Soft. EXTREMITIES: No cyanosis at this time. NEUROLOGIC: Awake. Microbiology Date/Time Source Procedure Growth Status 01/15/18 22:00 Urine,Clean Catch Urine Culture - Preliminary Mixed Urogenital Contaminants Resulted Laboratory Tests Test 01/17/18 08:15 White Blood Count 7.2 K/UL (4.8-10.8) Red Blood Count 2.33 M/UL (4.70-6.10) L Hemoglobin 7.8 G/DL (14.2-18.0) L Hematocrit 22.2 % (42.0-52.0) L Mean Corpuscular Volume 95 FL (80-99) Mean Corpuscular Hemoglobin 33.3 PG (27.0-31.0) H Mean Corpuscular Hemoglobin Concent 35.0 G/DL (32.0-36.0) Red Cell Distribution Width 12.6 % (11.6-14.8) Platelet Count 190 K/UL (150-450) Mean Platelet Volume 6.7 FL (6.5-10.1) Neutrophils (%) (Auto) % (45.0-75.0) Lymphocytes (%) (Auto) % (20.0-45.0) Monocytes (%) (Auto) % (1.0-10.0) Eosinophils (%) (Auto) % (0.0-3.0) Basophils (%) (Auto) % (0.0-2.0) Neutrophils % (Manual) Pending Lymphocytes % (Manual) Pending Platelet Estimate Pending Platelet Morphology Pending Sodium Level Pending Potassium Level Pending Chloride Level Pending Carbon Dioxide Level Pending Blood Urea Nitrogen Pending Creatinine Pending Estimat Glomerular Filtration Rate Pending Glucose Level Pending Hemoglobin A1c 5.8 % (4.3-6.0) Uric Acid 6.1 MG/DL (2.6-7.2) Calcium Level Pending Phosphorus Level 5.6 MG/DL (2.5-4.9) H Magnesium Level 2.1 MG/DL (1.8-2.4) Total Bilirubin Pending Gamma Glutamyl Transpeptidase 16 U/L (5-85) Aspartate Amino Transf (AST/SGOT) Pending Alanine Aminotransferase (ALT/SGPT) Pending Alkaline Phosphatase Pending Total Creatine Kinase 291 U/L (26-308) Troponin I Pending C-Reactive Protein, Quantitative < 0.4 mg/dL (0.00-0.90) Pro-B-Type Natriuretic Peptide 476 pg/mL (0-125) H Total Protein Pending Albumin Pending Globulin Pending Vitamin B12 Level Pending Thyroid Stimulating Hormone (TSH) Pending Current Medications Medications (Trade) Dose Ordered Sig/Yannick Route PRN Reason Start Time Stop Time Status Last Admin Dose Admin Acetaminophen (Tylenol) 650 mg Q4H PRN ORAL FEVER 01/15/18 21:00 02/14/18 20:59 Albuterol/ Ipratropium (Albuterol/ Ipratropium) 3 ml Q4H PRN HHN Shortness of Breath 01/15/18 21:00 01/20/18 20:59 Aspirin (ASA) 162 mg DAILY ORAL 01/16/18 09:00 02/15/18 08:59 01/17/18 08:59 Calcium Acetate (Phoslo) 1,334 mg TIAC ORAL 01/16/18 11:30 02/15/18 11:29 01/17/18 05:43 Dextrose (Dextrose 50%) 25 ml STAT PRN IV Hypoglycemia BS BTWN 60-69 01/15/18 21:15 02/14/18 21:14 Dextrose (Dextrose 50%) 50 ml STAT PRN IV Hypoglycemia 01/15/18 21:00 02/14/18 20:59 Diltiazem HCl (Cardizem) 10 mg Q1H PRN IV HR > 120 01/15/18 21:00 02/14/18 20:59 Diltiazem HCl (Cardizem) 60 mg EVERY 8 HOURS ORAL 01/16/18 22:00 02/15/18 21:59 01/17/18 05:43 Docusate Sodium (Colace) 100 mg THREE TIMES A DAY ORAL 01/16/18 13:00 02/15/18 12:59 01/17/18 08:59 Epoetin Siddhartha (Procrit (for ESRD on dialysis)) 10,000 units MON-WED-FRI SUBQ 01/17/18 21:00 02/16/18 20:59 Ergocalciferol (Drisdol) 50,000 intlu QWEEK ORAL 01/17/18 09:00 02/16/18 08:59 01/17/18 08:58 Heparin Sodium (Porcine) (Heparin 5000 units/ml) 5,000 units EVERY 8 HOURS SUBQ 01/15/18 22:00 02/14/18 21:59 01/17/18 05:46 Insulin Aspart (NovoLOG) BEFORE MEALS AND HS SUBQ 01/15/18 22:00 02/14/18 21:59 01/17/18 05:47 Lisinopril (Zestril) 10 mg BID ORAL 01/16/18 18:00 02/15/18 17:59 01/17/18 08:56 Meclizine HCl (Antivert) 12.5 mg BID ORAL 01/16/18 10:00 02/15/18 09:59 Metoprolol Tartrate (Lopressor) 50 mg EVERY 12 HOURS ORAL 01/15/18 21:30 02/14/18 21:29 01/17/18 08:57 Morphine Sulfate (Morphine Sulfate) 2 mg Q4H PRN IVP severe Pain (Pain Scale 7-10) 01/15/18 21:00 01/22/18 20:59 Nitroglycerin (Ntg) 0.4 mg Q5M PRN SL Prn Chest Pain 01/15/18 21:00 02/14/18 20:59 Ondansetron HCl (Zofran) 4 mg Q6H PRN IVP Nausea & Vomiting 01/15/18 21:00 02/14/18 20:59 Pantoprazole (Protonix) 40 mg DAILY ORAL 01/16/18 09:00 02/15/18 08:59 01/17/18 08:59 Polyethylene Glycol (Miralax) 17 gm DAILYPRN PRN ORAL Constipation 01/15/18 21:00 02/14/18 20:59 Pravastatin Sodium (Pravachol) 40 mg BEDTIME ORAL 01/15/18 21:00 02/14/18 20:59 01/16/18 21:07 Temazepam (Restoril) 15 mg HSPRN PRN ORAL Insomnia 01/15/18 21:00 01/22/18 20:59 Heavenly Crenshaw M.D. Jan 17, 2018 11:16
[2018-01-17 11:22] LABS: ALANINE AMINOTRANSFERASE 22 U/L (12-78); ALBUMIN 3.4 G/DL (3.4-5.0); ALBUMIN/GLOBULIN RATIO 0.7 (1.0-2.7); ALKALINE PHOSPHATASE 137 U/L (46-116); ANION GAP 12 mmol/L (5-15); ASPARTATE AMINO TRANSFERASE 18 U/L (15-37); BILIRUBIN,TOTAL 0.3 MG/DL (0.2-1.0); BLOOD UREA NITROGEN 62 mg/dL (7-18); CALCIUM 8.4 MG/DL (8.5-10.1); CARBON DIOXIDE 24 MMOL/L (21-32); CHLORIDE 105 MMOL/L (98-107); CREATININE 5.6 MG/DL (0.55-1.30); POTASSIUM 3.4 MMOL/L (3.5-5.1); SODIUM 141 MMOL/L (136-145)
[2018-01-17 11:44] VITALS: BP 138/73
[2018-01-17 12:13] LABS: % IRON SATURATION 30 % (15-50); IRON 65 ug/dL (50-175); TOTAL IRON BINDING CAPACITY 216 ug/dL (250-450)
--- NOTE | 2018-01-17 12:19 | Pulmonology Progress Note ---
Assessment/Plan Problems: (1) ACS (acute coronary syndrome) (2) Respiratory distress (3) DM2 (diabetes mellitus, type 2) (4) CKD (chronic kidney disease) stage 5, GFR less than 15 ml/min (5) HTN (hypertension) Assessment/Plan improving respiratory treatment titrate fio2 to sat of 92% HD by food cart attendant monitor BP Subjective ROS Limited/Unobtainable: No Interval Events: less short of breath Allergies: Coded Allergies: HYDRALAZINE (Verified Allergy, Unknown, 12/03/17) states"heads get wuzzy" LABETALOL (Verified Allergy, Unknown, cp, 09/08/16) Mushroom (Verified Allergy, Unknown, 06/27/17) Objective Last 24 Hour Vital Signs Date Time Temp Pulse Resp B/P (MAP) Pulse Ox O2 Delivery O2 Flow Rate FiO2 01/17/18 11:44 98.2 73 18 138/73 100 Room Air 98.2 01/17/18 09:47 65 18 Room Air 01/17/18 08:57 65 151/77 01/17/18 08:56 151/77 01/17/18 08:00 97.8 65 20 151/77 100 Room Air 97.8 01/17/18 08:00 62 01/17/18 05:43 61 135/70 01/17/18 04:00 97.7 65 18 135/70 99 Room Air 97.7 01/17/18 04:00 61 01/17/18 00:00 97.5 64 18 145/80 99 Room Air 97.5 01/17/18 00:00 70 01/16/18 21:08 72 135/77 01/16/18 21:08 72 135/77 01/16/18 20:06 72 18 Room Air 01/16/18 20:00 97.2 71 18 135/77 100 Room Air 97.2 01/16/18 20:00 74 01/16/18 18:12 114/66 01/16/18 16:00 64 01/16/18 16:00 97.9 70 18 142/79 100 Room Air 97.9 Intake and Output 01/16/18 01/17/18 19:00 07:00 Intake Total 600 ml 350 ml Balance 600 ml 350 ml Intake Oral 600 ml 350 ml # Voids 3 4 # Bowel Movements 1 General Appearance: WD/WN HEENT: normocephalic, atraumatic Respiratory/Chest: chest wall non-tender, lungs clear Cardiovascular: normal peripheral pulses, normal rate Abdomen: normal bowel sounds, soft, non tender Genitourinary: normal external genitalia Extremities: no clubbing Skin: no ulcers Neurologic/Psychiatric: no motor/sensory deficits, abnormal gait, oriented x 3 Microbiology Date/Time Source Procedure Growth Status 01/15/18 22:00 Urine,Clean Catch Urine Culture - Preliminary Mixed Urogenital Contaminants Resulted Laboratory Tests 01/17/18 08:15: White Blood Count 7.2, Red Blood Count 2.33L, Hemoglobin 7.8L, Hematocrit 22.2L , Mean Corpuscular Volume 95, Mean Corpuscular Hemoglobin 33.3H, Mean Corpuscular Hemoglobin Concent 35.0, Red Cell Distribution Width 12.6, Platelet Count 190, Mean Platelet Volume 6.7, Neutrophils (%) (Auto) , Lymphocytes (%) ( Auto) , Monocytes (%) (Auto) , Eosinophils (%) (Auto) , Basophils (%) (Auto) , Neutrophils % (Manual) [Pending], Lymphocytes % (Manual) [Pending], Platelet Estimate [Pending], Platelet Morphology [Pending], Sodium Level 141, Potassium Level 3.4L, Chloride Level 105, Carbon Dioxide Level 24, Anion Gap 12, Blood Urea Nitrogen 62H, Creatinine 5.6H, Estimat Glomerular Filtration Rate 12.7, Glucose Level 83, Hemoglobin A1c 5.8, Uric Acid 6.1, Calcium Level 8.4L, Phosphorus Level 5.6H, Magnesium Level 2.1, Iron Level 65, Total Iron Binding Capacity 216L, Percent Iron Saturation 30, Unsaturated Iron Binding 151, Ferritin [Pending], Total Bilirubin 0.3, Gamma Glutamyl Transpeptidase 16, Aspartate Amino Transf (AST/SGOT) 18, Alanine Aminotransferase (ALT/SGPT) 22, Alkaline Phosphatase 137H, Total Creatine Kinase 291, Troponin I 0.005, C- Reactive Protein, Quantitative < 0.4, Pro-B-Type Natriuretic Peptide 476H, Total Protein 8.1, Albumin 3.4, Globulin 4.7, Albumin/Globulin Ratio 0.7L, Vitamin B12 Level 411, Thyroid Stimulating Hormone (TSH) 1.467 Current Medications Medications (Trade) Dose Ordered Sig/Yannick Route PRN Reason Start Time Stop Time Status Last Admin Dose Admin Acetaminophen (Tylenol) 650 mg Q4H PRN ORAL FEVER 01/15/18 21:00 02/14/18 20:59 Albuterol/ Ipratropium (Albuterol/ Ipratropium) 3 ml Q4H PRN HHN Shortness of Breath 01/15/18 21:00 01/20/18 20:59 Aspirin (ASA) 162 mg DAILY ORAL 01/16/18 09:00 02/15/18 08:59 01/17/18 08:59 Calcium Acetate (Phoslo) 1,334 mg TIAC ORAL 01/16/18 11:30 02/15/18 11:29 01/17/18 11:38 Dextrose (Dextrose 50%) 25 ml STAT PRN IV Hypoglycemia BS BTWN 60-69 01/15/18 21:15 02/14/18 21:14 Dextrose (Dextrose 50%) 50 ml STAT PRN IV Hypoglycemia 01/15/18 21:00 02/14/18 20:59 Diltiazem HCl (Cardizem) 10 mg Q1H PRN IV HR > 120 01/15/18 21:00 02/14/18 20:59 Diltiazem HCl (Cardizem) 60 mg EVERY 8 HOURS ORAL 01/16/18 22:00 02/15/18 21:59 01/17/18 05:43 Docusate Sodium (Colace) 100 mg THREE TIMES A DAY ORAL 01/16/18 13:00 02/15/18 12:59 01/17/18 12:06 Epoetin Siddhartha (Procrit (for ESRD on dialysis)) 10,000 units WED-WED-WED SUBQ 01/17/18 21:00 02/16/18 20:59 Ergocalciferol (Drisdol) 50,000 intlu QWEEK ORAL 01/17/18 09:00 02/16/18 08:59 01/17/18 08:58 Heparin Sodium (Porcine) (Heparin 5000 units/ml) 5,000 units EVERY 8 HOURS SUBQ 01/15/18 22:00 02/14/18 21:59 01/17/18 05:46 Insulin Aspart (NovoLOG) BEFORE MEALS AND HS SUBQ 01/15/18 22:00 02/14/18 21:59 01/17/18 11:39 Lisinopril (Zestril) 10 mg BID ORAL 01/16/18 18:00 02/15/18 17:59 01/17/18 08:56 Meclizine HCl (Antivert) 12.5 mg BID ORAL 01/16/18 10:00 02/15/18 09:59 Metoprolol Tartrate (Lopressor) 50 mg EVERY 12 HOURS ORAL 01/15/18 21:30 02/14/18 21:29 01/17/18 08:57 Morphine Sulfate (Morphine Sulfate) 2 mg Q4H PRN IVP severe Pain (Pain Scale 7-10) 01/15/18 21:00 01/22/18 20:59 Nitroglycerin (Ntg) 0.4 mg Q5M PRN SL Prn Chest Pain 01/15/18 21:00 02/14/18 20:59 Ondansetron HCl (Zofran) 4 mg Q6H PRN IVP Nausea & Vomiting 01/15/18 21:00 02/14/18 20:59 Pantoprazole (Protonix) 40 mg DAILY ORAL 01/16/18 09:00 02/15/18 08:59 01/17/18 08:59 Polyethylene Glycol (Miralax) 17 gm DAILYPRN PRN ORAL Constipation 01/15/18 21:00 02/14/18 20:59 Potassium Chloride (K-Dur) 20 meq ONCE ONCE ORAL 01/17/18 12:30 01/17/18 12:31 01/17/18 12:06 Pravastatin Sodium (Pravachol) 40 mg BEDTIME ORAL 01/15/18 21:00 02/14/18 20:59 01/16/18 21:07 Temazepam (Restoril) 15 mg HSPRN PRN ORAL Insomnia 01/15/18 21:00 01/22/18 20:59 Jose Bashir MD Jan 17, 2018 12:19
--- NOTE | 2018-01-17 12:42 | General Progress Note ---
Assessment/Plan Problem List: (1) Anemia ICD Codes: D64.9 - Anemia, unspecified SNOMED: 902303692 (2) HTN (hypertension) ICD Codes: I10 - Essential (primary) hypertension SNOMED: 67092589 (3) DM2 (diabetes mellitus, type 2) ICD Codes: E11.9 - Type 2 diabetes mellitus without complications SNOMED: 64079041 (4) Renal failure ICD Codes: N19 - Unspecified kidney failure SNOMED: 43219324 (5) Atrial fibrillation, rapid ICD Codes: I48.91 - Unspecified atrial fibrillation SNOMED: 260482727 Status: unchanged Assessment/Plan ot pt diet transfuse prn dialysis prn cardio f/u cbc bmp am Subjective Constitutional: Reports: weakness Allergies: Coded Allergies: HYDRALAZINE (Verified Allergy, Unknown, 12/03/17) states"heads get wuzzy" LABETALOL (Verified Allergy, Unknown, cp, 09/08/16) Mushroom (Verified Allergy, Unknown, 06/27/17) All Systems: reviewed and negative except above Subjective sl anxious in bed Objective Last 24 Hour Vital Signs Date Time Temp Pulse Resp B/P (MAP) Pulse Ox O2 Delivery O2 Flow Rate FiO2 01/17/18 11:44 98.2 73 18 138/73 100 Room Air 98.2 01/17/18 09:47 65 18 Room Air 01/17/18 08:57 65 151/77 01/17/18 08:56 151/77 01/17/18 08:00 97.8 65 20 151/77 100 Room Air 97.8 01/17/18 08:00 62 01/17/18 05:43 61 135/70 01/17/18 04:00 97.7 65 18 135/70 99 Room Air 97.7 01/17/18 04:00 61 01/17/18 00:00 97.5 64 18 145/80 99 Room Air 97.5 01/17/18 00:00 70 01/16/18 21:08 72 135/77 01/16/18 21:08 72 135/77 01/16/18 20:06 72 18 Room Air 01/16/18 20:00 97.2 71 18 135/77 100 Room Air 97.2 01/16/18 20:00 74 01/16/18 18:12 114/66 01/16/18 16:00 64 01/16/18 16:00 97.9 70 18 142/79 100 Room Air 97.9 Intake and Output 01/16/18 01/17/18 19:00 07:00 Intake Total 600 ml 350 ml Balance 600 ml 350 ml Intake Oral 600 ml 350 ml # Voids 3 4 # Bowel Movements 1 Laboratory Tests 01/17/18 08:15: White Blood Count 7.2, Red Blood Count 2.33L, Hemoglobin 7.8L, Hematocrit 22.2L , Mean Corpuscular Volume 95, Mean Corpuscular Hemoglobin 33.3H, Mean Corpuscular Hemoglobin Concent 35.0, Red Cell Distribution Width 12.6, Platelet Count 190, Mean Platelet Volume 6.7, Neutrophils (%) (Auto) , Lymphocytes (%) ( Auto) , Monocytes (%) (Auto) , Eosinophils (%) (Auto) , Basophils (%) (Auto) , Differential Total Cells Counted 100, Neutrophils % (Manual) 61, Lymphocytes % ( Manual) 23, Monocytes % (Manual) 10, Eosinophils % (Manual) 6H, Basophils % ( Manual) 0, Band Neutrophils 0, Platelet Estimate Adequate, Platelet Morphology Normal, Hypochromasia 1+, Sodium Level 141, Potassium Level 3.4L, Chloride Level 105, Carbon Dioxide Level 24, Anion Gap 12, Blood Urea Nitrogen 62H, Creatinine 5.6H, Estimat Glomerular Filtration Rate 12.7, Glucose Level 83, Hemoglobin A1c 5.8, Uric Acid 6.1, Calcium Level 8.4L, Phosphorus Level 5.6H, Magnesium Level 2.1, Iron Level 65, Total Iron Binding Capacity 216L, Percent Iron Saturation 30, Unsaturated Iron Binding 151, Ferritin [Pending], Total Bilirubin 0.3, Gamma Glutamyl Transpeptidase 16, Aspartate Amino Transf (AST/ SGOT) 18, Alanine Aminotransferase (ALT/SGPT) 22, Alkaline Phosphatase 137H, Total Creatine Kinase 291, Troponin I 0.005, C-Reactive Protein, Quantitative < 0.4, Pro-B-Type Natriuretic Peptide 476H, Total Protein 8.1, Albumin 3.4, Globulin 4.7, Albumin/Globulin Ratio 0.7L, Vitamin B12 Level 411, Thyroid Stimulating Hormone (TSH) 1.467 Height (Feet): 5 Height (Inches): 5.00 Weight (Pounds): 136 General Appearance: alert EENT: normal ENT inspection Neck: normal alignment Cardiovascular: normal peripheral pulses, normal rate, regular rhythm Respiratory/Chest: chest wall non-tender, lungs clear, normal breath sounds Extremities: normal inspection Edema: no edema noted Arm (L), no edema noted Arm (R), no edema noted Leg (L), no edema noted Leg (R), no edema noted Pedal (L), no edema noted Pedal (R), no edema noted Generalized Neurologic: responsive, motor weakness Skin: normal pigmentation, warm/dry FREDA CHUNG Jan 17, 2018 12:42
[2018-01-17 12:54] LABS: FERRITIN 510 NG/ML (8-388)
--- NOTE | 2018-01-17 14:39 | Cardiac Electrophysiology PN ---
Assessment/Plan Assessment/Plan 1. Troponin elevation.Due to renal failure. 3 follow up troponins are negative. The patient does not have any chest pain. Echocardiogram, which showed ejection fraction of 55%. 2. Bilateral lower extremity edema. His lower extremity Doppler was negative for deep venous thrombosis. 3. Atrial fibrillation and rapid ventricular response. Converted to sinus rhythm. The patient is on metoprolol 50 mg b.i.d. and Cardizem 60 tid. Off Anticoagulation for severe anemia 4. HTN. On Lisinopril 10 bid in addition to Cardizem and Metoprolol 5. End-stage renal disease, on hemodialysis. 6. Anemia, on Epogen. DW RN Subjective Subjective Feeling better. No Arrhythmias. BP better Objective Last 24 Hour Vital Signs Date Time Temp Pulse Resp B/P (MAP) Pulse Ox O2 Delivery O2 Flow Rate FiO2 01/17/18 13:35 75 138/73 01/17/18 12:00 67 01/17/18 11:44 98.2 73 18 138/73 100 Room Air 98.2 01/17/18 09:47 65 18 Room Air 01/17/18 08:57 65 151/77 01/17/18 08:56 151/77 01/17/18 08:00 97.8 65 20 151/77 100 Room Air 97.8 01/17/18 08:00 62 01/17/18 05:43 61 135/70 01/17/18 04:00 97.7 65 18 135/70 99 Room Air 97.7 01/17/18 04:00 61 01/17/18 00:00 97.5 64 18 145/80 99 Room Air 97.5 01/17/18 00:00 70 01/16/18 21:08 72 135/77 01/16/18 21:08 72 135/77 01/16/18 20:06 72 18 Room Air 01/16/18 20:00 97.2 71 18 135/77 100 Room Air 97.2 01/16/18 20:00 74 01/16/18 18:12 114/66 01/16/18 16:00 64 01/16/18 16:00 97.9 70 18 142/79 100 Room Air 97.9 Intake and Output 01/16/18 01/17/18 19:00 07:00 Intake Total 600 ml 350 ml Balance 600 ml 350 ml Intake Oral 600 ml 350 ml # Voids 3 4 # Bowel Movements 1 Laboratory Tests Test 01/17/18 08:15 White Blood Count 7.2 K/UL (4.8-10.8) Red Blood Count 2.33 M/UL (4.70-6.10) L Hemoglobin 7.8 G/DL (14.2-18.0) L Hematocrit 22.2 % (42.0-52.0) L Mean Corpuscular Volume 95 FL (80-99) Mean Corpuscular Hemoglobin 33.3 PG (27.0-31.0) H Mean Corpuscular Hemoglobin Concent 35.0 G/DL (32.0-36.0) Red Cell Distribution Width 12.6 % (11.6-14.8) Platelet Count 190 K/UL (150-450) Mean Platelet Volume 6.7 FL (6.5-10.1) Neutrophils (%) (Auto) % (45.0-75.0) Lymphocytes (%) (Auto) % (20.0-45.0) Monocytes (%) (Auto) % (1.0-10.0) Eosinophils (%) (Auto) % (0.0-3.0) Basophils (%) (Auto) % (0.0-2.0) Differential Total Cells Counted 100 Neutrophils % (Manual) 61 % (45-75) Lymphocytes % (Manual) 23 % (20-45) Monocytes % (Manual) 10 % (1-10) Eosinophils % (Manual) 6 % (0-3) H Basophils % (Manual) 0 % (0-2) Band Neutrophils 0 % (0-8) Platelet Estimate Adequate Platelet Morphology Normal Hypochromasia 1+ Sodium Level 141 MMOL/L (136-145) Potassium Level 3.4 MMOL/L (3.5-5.1) L Chloride Level 105 MMOL/L (98-107) Carbon Dioxide Level 24 MMOL/L (21-32) Anion Gap 12 mmol/L (5-15) Blood Urea Nitrogen 62 mg/dL (7-18) H Creatinine 5.6 MG/DL (0.55-1.30) H Estimat Glomerular Filtration Rate 12.7 mL/min (>60) Glucose Level 83 MG/DL (74-106) Hemoglobin A1c 5.8 % (4.3-6.0) Uric Acid 6.1 MG/DL (2.6-7.2) Calcium Level 8.4 MG/DL (8.5-10.1) L Phosphorus Level 5.6 MG/DL (2.5-4.9) H Magnesium Level 2.1 MG/DL (1.8-2.4) Iron Level 65 ug/dL (50-175) Total Iron Binding Capacity 216 ug/dL (250-450) L Percent Iron Saturation 30 % (15-50) Unsaturated Iron Binding 151 ug/dL (112-346) Ferritin 510 NG/ML (8-388) H Total Bilirubin 0.3 MG/DL (0.2-1.0) Gamma Glutamyl Transpeptidase 16 U/L (5-85) Aspartate Amino Transf (AST/SGOT) 18 U/L (15-37) Alanine Aminotransferase (ALT/SGPT) 22 U/L (12-78) Alkaline Phosphatase 137 U/L (46-116) H Total Creatine Kinase 291 U/L (26-308) Troponin I 0.005 ng/mL (0.000-0.056) C-Reactive Protein, Quantitative < 0.4 mg/dL (0.00-0.90) Pro-B-Type Natriuretic Peptide 476 pg/mL (0-125) H Total Protein 8.1 G/DL (6.4-8.2) Albumin 3.4 G/DL (3.4-5.0) Globulin 4.7 g/dL Albumin/Globulin Ratio 0.7 (1.0-2.7) L Vitamin B12 Level 411 PG/ML (193-986) Thyroid Stimulating Hormone (TSH) 1.467 uiU/mL (0.358-3.740) Microbiology Date/Time Source Procedure Growth Status 01/15/18 22:00 Urine,Clean Catch Urine Culture - Preliminary Mixed Urogenital Contaminants Resulted Objective HEAD AND NECK: Showed no JVD or carotid bruits. LUNGS: Clear. He has dialysis catheter in the right chest. CARDIOVASCULAR: Shows regular S1 and S2 with no gallop or murmur. ABDOMEN: Soft. EXTREMITIES: Trace pitting edema. Tucker Herrmann MD Jan 17, 2018 14:39
[2018-01-17 16:00] VITALS: BP 134/66
--- NOTE | 2018-01-17 17:10 | Nephrology Progress Note ---
Assessment/Plan Problem List: (1) ESRD (end stage renal disease) (2) Severe anemia (3) HTN (hypertension) (4) Atrial fibrillation, rapid Assessment Atrial Fib, converted (1) ESRD on HD (2) Chronic kidney disease (3) Anemia (4) HTN (hypertension) (5) h/o LOw Ca (6) DM Plan Patient has ESRD dialysis last 01/15 as OP next 01/18 [facility] kidney noted on previous admission Echo Noted BP meds adjustments done Phos lo & Vit D PO monitor calcium Subjective ROS Limited/Unobtainable: No Constitutional: Reports: malaise Objective Objective Last 24 Hour Vital Signs Date Time Temp Pulse Resp B/P (MAP) Pulse Ox O2 Delivery O2 Flow Rate FiO2 01/17/18 16:00 98.0 64 18 134/66 99 Room Air 98.0 01/17/18 13:35 75 138/73 01/17/18 12:00 67 01/17/18 11:44 98.2 73 18 138/73 100 Room Air 98.2 01/17/18 09:47 65 18 Room Air 01/17/18 08:57 65 151/77 01/17/18 08:56 151/77 01/17/18 08:00 97.8 65 20 151/77 100 Room Air 97.8 01/17/18 08:00 62 01/17/18 05:43 61 135/70 01/17/18 04:00 97.7 65 18 135/70 99 Room Air 97.7 01/17/18 04:00 61 01/17/18 00:00 97.5 64 18 145/80 99 Room Air 97.5 01/17/18 00:00 70 01/16/18 21:08 72 135/77 01/16/18 21:08 72 135/77 01/16/18 20:06 72 18 Room Air 01/16/18 20:00 97.2 71 18 135/77 100 Room Air 97.2 01/16/18 20:00 74 01/16/18 18:12 114/66 Intake and Output 01/16/18 01/17/18 19:00 07:00 Intake Total 600 ml 350 ml Balance 600 ml 350 ml Intake Oral 600 ml 350 ml # Voids 3 4 # Bowel Movements 1 Laboratory Tests 01/17/18 08:15: White Blood Count 7.2, Red Blood Count 2.33L, Hemoglobin 7.8L, Hematocrit 22.2L , Mean Corpuscular Volume 95, Mean Corpuscular Hemoglobin 33.3H, Mean Corpuscular Hemoglobin Concent 35.0, Red Cell Distribution Width 12.6, Platelet Count 190, Mean Platelet Volume 6.7, Neutrophils (%) (Auto) , Lymphocytes (%) ( Auto) , Monocytes (%) (Auto) , Eosinophils (%) (Auto) , Basophils (%) (Auto) , Differential Total Cells Counted 100, Neutrophils % (Manual) 61, Lymphocytes % ( Manual) 23, Monocytes % (Manual) 10, Eosinophils % (Manual) 6H, Basophils % ( Manual) 0, Band Neutrophils 0, Platelet Estimate Adequate, Platelet Morphology Normal, Hypochromasia 1+, Sodium Level 141, Potassium Level 3.4L, Chloride Level 105, Carbon Dioxide Level 24, Anion Gap 12, Blood Urea Nitrogen 62H, Creatinine 5.6H, Estimat Glomerular Filtration Rate 12.7, Glucose Level 83, Hemoglobin A1c 5.8, Uric Acid 6.1, Calcium Level 8.4L, Phosphorus Level 5.6H, Magnesium Level 2.1, Iron Level 65, Total Iron Binding Capacity 216L, Percent Iron Saturation 30, Unsaturated Iron Binding 151, Ferritin 510H, Total Bilirubin 0.3, Gamma Glutamyl Transpeptidase 16, Aspartate Amino Transf (AST/ SGOT) 18, Alanine Aminotransferase (ALT/SGPT) 22, Alkaline Phosphatase 137H, Total Creatine Kinase 291, Troponin I 0.005, C-Reactive Protein, Quantitative < 0.4, Pro-B-Type Natriuretic Peptide 476H, Total Protein 8.1, Albumin 3.4, Globulin 4.7, Albumin/Globulin Ratio 0.7L, Vitamin B12 Level 411, Thyroid Stimulating Hormone (TSH) 1.467 01/17/18 15:15: Stool Occult Blood [Pending] Height (Feet): 5 Height (Inches): 5.00 Weight (Pounds): 136 General Appearance: no apparent distress Cardiovascular: normal rate Objective no change ABDOUL PINEDA Jan 17, 2018 17:10
--- NOTE | 2018-01-17 17:30 | GI Initial Consult Note ---
History of Present Illness General Date patient seen: Jan 17, 2018 Time patient seen: 17:27 Reason for Hospitalization: Dyspnea/Respdistress Referring physician: FREDA CHUNG Reason for Consultation: ANEMIA Present Illness HPI Patient presents emergency department today complaining of acute onset of shortness of breath. Patient states that he was in dialysis. And he thought the machine was not working well. He states that it went off multiple times he was concerned about possible clots. However he was able to complete treatment. He went home and developed acute onset of shortness of breath generalized weakness chest pain. He also complains lower back pain. States that he has some cramps in his lower back a couple days ago. He also states that he recently started hepatitis B vaccine and doesn't feel well after starting the hepatitis B vaccine. Denies any jaundice. Denies any other complaints. Symptoms noted to be moderate to severe. Patient states that he follows up with his primary care physician at [facility]. His home care coordinator Dr. Ki Guerra.No other modifying factors. No other associated signs and symptoms. No other complaints were noted. GI consulted for anemia. Pt seen, awake A&Ox4 NAD with no active s/x of N/V/D. No GI complaints noted by the patient today. Last colonoscopy was approximately in 2010, unsure of findings. Patient is currently on a Hep B treatment, has taken first dose in the series. Presents today with anemia requiring blood transfusion. Home Meds Reported Medications Dextran 70/Hypromellose (ARTIFICIAL TEARS EYE DROPS*) 15 Ml Drops, 1 DROP BOTH EYES BID 01/15/18 Pravastatin Sod (PRAVASTATIN SOD) 40 Mg Tablet, 40 MG ORAL BEDTIME 01/15/18 Dorzolamide HCl/Timolol Maleat (Dorzolamide-Timolol Eye Drops) 10 Ml Drops, 1 DROP RIGHT EYE BID 01/15/18 Ferrous Sulfate* (FERROUS SULFATE*) 325 Mg Tablet, 325 MG ORAL DAILY 01/15/18 Ergocalciferol (Vitamin D2)* (VITAMIN D*) 50,000 Unit Capsule, 94413 UNIT ORAL ONCE A WEEK 01/15/18 Furosemide* (LASIX*) 40 Mg Tablet, 40 MG ORAL DAILY 01/15/18 Docusate Sodium* (COLACE*) 100 Mg Capsule, 100 MG ORAL THREE TIMES A DAY, CAP 01/06/18 Metoprolol Tartrate* (METOPROLOL TARTRATE*) 50 Mg Tablet, 50 MG ORAL EVERY 12 HOURS, TAB 0 Refills 01/06/18 Amlodipine Besylate (Norvasc) 10 Mg Tablet, 10 MG ORAL DAILY, TAB 01/06/18 Insulin Glargine (LANTUS) 100 Unit/1 Ml Insuln.pen, 12 UNITS SUBQ BEDTIME, #1 EA 0 Refills 07/24/17 Sodium Polystyrene Sulfonate (SODIUM POLYSTYRENE SULFONATE) 15 Gm/60 Ml Oral.susp, 15 GM PO DAILY, ML 06/26/17 Aspirin* (ASPIR 81*) 81 Mg Tablet.dr, 81 MG ORAL DAILY, TAB 06/26/17 Discontinued Reported Medications Insulin Detemir (LEVEMIR FLEXPEN) 100 Unit/1 Ml Insuln.pen, 15 SUBQ BEDTIME, # 300 UNITS 0 Refills 01/06/18 Omeprazole (OMEPRAZOLE) 20 Mg Capsule.dr, 20 MG ORAL DAILY, CAP 01/06/18 Atorvastatin Calcium* (LIPITOR*) 40 Mg Tablet, 40 MG ORAL BEDTIME, #30 TAB 0 Refills 01/06/18 Lisinopril (LISINOPRIL*) 20 Mg Tablet, 20 MG ORAL BID, TAB 01/06/18 Hydralazine Hcl* (HYDRALAZINE HCL*) 100 Mg Tablet, 100 MG ORAL EVERY 8 HOURS, TAB 01/06/18 Clonidine Hcl* (CATAPRES*) 0.1 Mg Tablet, 0.1 MG ORAL EVERY 8 HOURS, TAB 01/06/18 Discontinued Scripts Codeine/Promethazine Hcl* (PROMETHAZINE-CODEINE SYRUP*) 118 Ml Syrup, 5 ML ORAL Q6H PRN for For Cough, #118 ML 0 Refills Prov:Betsy Garcia 10/18/16 Med list reviewed/reconciled: Yes Allergies: Coded Allergies: HYDRALAZINE (Verified Allergy, Unknown, 12/03/17) states"heads get wuzzy" LABETALOL (Verified Allergy, Unknown, cp, 09/08/16) Mushroom (Verified Allergy, Unknown, 06/27/17) Patient History History Provided By: Patient, Medical Record PMH Narrative Past Medical History: DM, HTN, CAD Past Surgical History: other - Dialysis cathter Pertinent Family History: none Social History: Denies: smoking, alcohol use, drug use Reviewed Nursing Documentation: PMH: Agreed; PSxH: Agreed Nursing Documentation-PMH Hx Cardiac Problems: Yes Hx Hypertension: Yes Hx Diabetes: Yes Hx Cancer: No Hx Gastrointestinal Problems: No Hx Dialysis: No - renal failure Hx Neurological Problems: No Social History: Denies: smoking, alcohol use, drug use, other Review of Systems All Other Systems: negative except mentioned in HPI Physical Exam Vital Signs Date Time Temp Pulse Resp B/P (MAP) Pulse Ox O2 Delivery O2 Flow Rate FiO2 01/15/18 16:04 98.2 137 22 158/93 97 Room Air 98.2 Sp02 EP Interpretation: reviewed, normal Labs Laboratory Tests Test 01/17/18 08:15 01/17/18 15:15 White Blood Count 7.2 K/UL (4.8-10.8) Red Blood Count 2.33 M/UL (4.70-6.10) L Hemoglobin 7.8 G/DL (14.2-18.0) L Hematocrit 22.2 % (42.0-52.0) L Mean Corpuscular Volume 95 FL (80-99) Mean Corpuscular Hemoglobin 33.3 PG (27.0-31.0) H Mean Corpuscular Hemoglobin Concent 35.0 G/DL (32.0-36.0) Red Cell Distribution Width 12.6 % (11.6-14.8) Platelet Count 190 K/UL (150-450) Mean Platelet Volume 6.7 FL (6.5-10.1) Neutrophils (%) (Auto) % (45.0-75.0) Lymphocytes (%) (Auto) % (20.0-45.0) Monocytes (%) (Auto) % (1.0-10.0) Eosinophils (%) (Auto) % (0.0-3.0) Basophils (%) (Auto) % (0.0-2.0) Differential Total Cells Counted 100 Neutrophils % (Manual) 61 % (45-75) Lymphocytes % (Manual) 23 % (20-45) Monocytes % (Manual) 10 % (1-10) Eosinophils % (Manual) 6 % (0-3) H Basophils % (Manual) 0 % (0-2) Band Neutrophils 0 % (0-8) Platelet Estimate Adequate Platelet Morphology Normal Hypochromasia 1+ Sodium Level 141 MMOL/L (136-145) Potassium Level 3.4 MMOL/L (3.5-5.1) L Chloride Level 105 MMOL/L (98-107) Carbon Dioxide Level 24 MMOL/L (21-32) Anion Gap 12 mmol/L (5-15) Blood Urea Nitrogen 62 mg/dL (7-18) H Creatinine 5.6 MG/DL (0.55-1.30) H Estimat Glomerular Filtration Rate 12.7 mL/min (>60) Glucose Level 83 MG/DL (74-106) Hemoglobin A1c 5.8 % (4.3-6.0) Uric Acid 6.1 MG/DL (2.6-7.2) Calcium Level 8.4 MG/DL (8.5-10.1) L Phosphorus Level 5.6 MG/DL (2.5-4.9) H Magnesium Level 2.1 MG/DL (1.8-2.4) Iron Level 65 ug/dL (50-175) Total Iron Binding Capacity 216 ug/dL (250-450) L Percent Iron Saturation 30 % (15-50) Unsaturated Iron Binding 151 ug/dL (112-346) Ferritin 510 NG/ML (8-388) H Total Bilirubin 0.3 MG/DL (0.2-1.0) Gamma Glutamyl Transpeptidase 16 U/L (5-85) Aspartate Amino Transf (AST/SGOT) 18 U/L (15-37) Alanine Aminotransferase (ALT/SGPT) 22 U/L (12-78) Alkaline Phosphatase 137 U/L (46-116) H Total Creatine Kinase 291 U/L (26-308) Troponin I 0.005 ng/mL (0.000-0.056) C-Reactive Protein, Quantitative < 0.4 mg/dL (0.00-0.90) Pro-B-Type Natriuretic Peptide 476 pg/mL (0-125) H Total Protein 8.1 G/DL (6.4-8.2) Albumin 3.4 G/DL (3.4-5.0) Globulin 4.7 g/dL Albumin/Globulin Ratio 0.7 (1.0-2.7) L Vitamin B12 Level 411 PG/ML (193-986) Thyroid Stimulating Hormone (TSH) 1.467 uiU/mL (0.358-3.740) Stool Occult Blood Pending General Appearance: well appearing, no apparent distress, alert Head: normocephalic EENT: PERRL/EOMI, normal ENT inspection Neck: supple Respiratory: normal breath sounds, no respiratory distress Cardiovascular: normal rate Gastrointestinal: normal inspection, non tender, soft, normal bowel sounds, non -distended Rectal: deferred Genitourinary: deferred Musculoskeletal: normal inspection, back normal Neurologic: normal inspection, alert, oriented x3, responsive Psychiatric: normal inspection, judgement/insight normal, memory normal Skin: normal inspection, normal color, no rash, warm/dry, palpation normal, well hydrated Lymphatic: normal inspection, no adenopathy Current Medications Current Medications Medications (Trade) Dose Ordered Sig/Yannick Route PRN Reason Start Time Stop Time Status Last Admin Dose Admin Acetaminophen (Tylenol) 650 mg Q4H PRN ORAL FEVER 01/15/18 21:00 02/14/18 20:59 Albuterol/ Ipratropium (Albuterol/ Ipratropium) 3 ml Q4H PRN HHN Shortness of Breath 01/15/18 21:00 01/20/18 20:59 Aspirin (ASA) 162 mg DAILY ORAL 01/16/18 09:00 02/15/18 08:59 01/17/18 08:59 Calcium Acetate (Phoslo) 1,334 mg TIAC ORAL 01/16/18 11:30 02/15/18 11:29 01/17/18 17:00 Dextrose (Dextrose 50%) 25 ml STAT PRN IV Hypoglycemia BS BTWN 60-69 01/15/18 21:15 02/14/18 21:14 Dextrose (Dextrose 50%) 50 ml STAT PRN IV Hypoglycemia 01/15/18 21:00 02/14/18 20:59 Diltiazem HCl (Cardizem) 10 mg Q1H PRN IV HR > 120 01/15/18 21:00 02/14/18 20:59 Diltiazem HCl (Cardizem) 60 mg EVERY 8 HOURS ORAL 01/16/18 22:00 02/15/18 21:59 01/17/18 13:35 Docusate Sodium (Colace) 100 mg THREE TIMES A DAY ORAL 01/16/18 13:00 02/15/18 12:59 01/17/18 12:06 Epoetin Siddhartha (Procrit (for ESRD on dialysis)) 10,000 units MON-WED-FRI SUBQ 01/17/18 21:00 02/16/18 20:59 Ergocalciferol (Drisdol) 50,000 intlu QWEEK ORAL 01/17/18 09:00 02/16/18 08:59 01/17/18 08:58 Heparin Sodium (Porcine) (Heparin 5000 units/ml) 5,000 units EVERY 8 HOURS SUBQ 01/15/18 22:00 02/14/18 21:59 01/17/18 13:37 Insulin Aspart (NovoLOG) BEFORE MEALS AND HS SUBQ 01/15/18 22:00 02/14/18 21:59 01/17/18 17:07 Lisinopril (Zestril) 10 mg BID ORAL 01/16/18 18:00 02/15/18 17:59 01/17/18 08:56 Meclizine HCl (Antivert) 12.5 mg BID ORAL 01/16/18 10:00 02/15/18 09:59 Metoprolol Tartrate (Lopressor) 50 mg EVERY 12 HOURS ORAL 01/15/18 21:30 02/14/18 21:29 01/17/18 08:57 Morphine Sulfate (Morphine Sulfate) 2 mg Q4H PRN IVP severe Pain (Pain Scale 7-10) 01/15/18 21:00 01/22/18 20:59 Nitroglycerin (Ntg) 0.4 mg Q5M PRN SL Prn Chest Pain 01/15/18 21:00 02/14/18 20:59 Ondansetron HCl (Zofran) 4 mg Q6H PRN IVP Nausea & Vomiting 01/15/18 21:00 02/14/18 20:59 Pantoprazole (Protonix) 40 mg DAILY ORAL 01/16/18 09:00 02/15/18 08:59 01/17/18 08:59 Polyethylene Glycol (Miralax) 17 gm DAILYPRN PRN ORAL Constipation 01/15/18 21:00 02/14/18 20:59 Pravastatin Sodium (Pravachol) 40 mg BEDTIME ORAL 01/15/18 21:00 02/14/18 20:59 01/16/18 21:07 Temazepam (Restoril) 15 mg HSPRN PRN ORAL Insomnia 01/15/18 21:00 01/22/18 20:59 GI: Plan Problems: (1) Hepatitis B (2) Anemia (3) Severe anemia (4) DM2 (diabetes mellitus, type 2) Plan anemia work up, will consider endoscopy pending work up OB stool r/o GI bleed, sent to lab monitor H&H, prn transfusions bowel regime ppi fu labs cont outpatient Hep B treatment >> per pt, had ?rxn to first vaccination. Discussed with Dr. Agarwal. Thank you for this patient referral, we will follow. Trinity Gómez N.P. Jan 17, 2018 17:30
[2018-01-17 20:00] VITALS: BP 142/76
[2018-01-17] MEDS ORDERED: Epogen (for ESRD on dialysis) SUBQ SCH (21:00)
[2018-01-18] VITALS (8 sets, daily range): BP systolic 139–170; BP diastolic 68–87
[2018-01-18] MEDS: dilTIAZem HCl 60mg tab ORAL SCH ×2 (06:10→13:42)
[2018-01-18] MEDS: Calcium Acetate 667mg Tab ORAL SCH ×3 (06:10→16:35)
[2018-01-18] MEDS: NovoLOG Insulin Flexpen SUBQ SCH ×4 (06:11→21:24)
[2018-01-18] MEDS: Heparin 5000 units/ml inj SUBQ SCH ×3 (06:12→21:26)
[2018-01-18] MEDS: Docusate 100mg cap ORAL SCH ×3 (08:29→17:15)
[2018-01-18] MEDS: Aspirin Baby 81mg ORAL SCH (08:29)
[2018-01-18] MEDS: Lisinopril 10mg tab ORAL SCH ×2 (08:29→17:10)
[2018-01-18] MEDS: Meclizine 25mg tab ORAL SCH ×2 (08:29→17:04)
[2018-01-18] MEDS: Metoprolol Tartrate 50mg tab ORAL SCH (08:32)
[2018-01-18 09:09] LABS: BASOPHILS % (AUTO) 0.6 % (0.0-2.0); EOSINOPHILS % (AUTO) 2.6 % (0.0-3.0); HEMATOCRIT 23.8 % (42.0-52.0); HEMOGLOBIN 8.1 G/DL (14.2-18.0); LYMPHOCYTES % (AUTO) 21.8 % (20.0-45.0); MEAN CORPUSCULAR VOLUME 97 FL (80-99); MONOCYTES % (AUTO) 8.1 % (1.0-10.0); NEUTROPHILS % (AUTO) 66.8 % (45.0-75.0); PLATELET COUNT 207 K/UL (150-450); RED BLOOD COUNT 2.46 M/UL (4.70-6.10); RED CELL DISTRIBUTION WIDTH 12.9 % (11.6-14.8); WHITE BLOOD COUNT 6.8 K/UL (4.8-10.8)
[2018-01-18 09:27] LABS: ANION GAP 12 mmol/L (5-15); BLOOD UREA NITROGEN 76 mg/dL (7-18); CALCIUM 8.3 MG/DL (8.5-10.1); CARBON DIOXIDE 22 MMOL/L (21-32); CHLORIDE 107 MMOL/L (98-107); CREATININE 6.2 MG/DL (0.55-1.30); POTASSIUM 4.4 MMOL/L (3.5-5.1); SODIUM 141 MMOL/L (136-145)
[2018-01-18 10:19] LABS: ALANINE AMINOTRANSFERASE 19 U/L (12-78); ALBUMIN 3.4 G/DL (3.4-5.0); ALKALINE PHOSPHATASE 137 U/L (46-116); ASPARTATE AMINO TRANSFERASE 16 U/L (15-37); BILIRUBIN,DIRECT < 0.1 MG/DL (0.0-0.3); BILIRUBIN,TOTAL 0.3 MG/DL (0.2-1.0); PHOSPHORUS 4.5 MG/DL (2.5-4.9)
--- NOTE | 2018-01-18 12:02 | Infectious Diseases Prog Note ---
Assessment/Plan Assessment/Plan ASSESSMENT: The patient is a 57-year-old male with multiple problems as listed above, who has: 1.Dyspnea, improving 2.Atrial fibrillation with rapid ventricular response. 3. Normal white blood cells. 4. No evidence of pneumonia. -Chest x-ray, no acute cardiopulmonary disease. -History of human immunodeficiency virus and hepatitis B/C negative. -History of end-stage renal disease on hemodialysis, status post hemodialysis catheter placement on 12/30/2017. -Hypertension. - Diabetes. -. Anemia. - Probable congestive heart failure. PLAN: \\-. We will monitor the patient off of antibiotics. -. Monitor CBC. -. Monitor BMP. -. Monitor chest x-ray. Subjective Allergies: Coded Allergies: HYDRALAZINE (Verified Allergy, Unknown, 12/03/17) states"heads get wuzzy" LABETALOL (Verified Allergy, Unknown, cp, 09/08/16) Mushroom (Verified Allergy, Unknown, 06/27/17) Subjective afebrile no leukocytosis off abx Objective Vital Signs Last 24 Hour Vital Signs Date Time Temp Pulse Resp B/P (MAP) Pulse Ox O2 Delivery O2 Flow Rate FiO2 01/18/18 11:55 97.5 63 17 157/77 98 Room Air 97.5 01/18/18 08:32 59 140/70 01/18/18 08:29 140/70 01/18/18 08:00 98.1 60 18 140/70 94 Room Air 98.1 01/18/18 08:00 60 01/18/18 07:55 68 16 Room Air 01/18/18 06:10 75 140/70 01/18/18 04:00 97.0 63 20 139/68 96 Room Air 97.0 01/18/18 04:00 67 01/18/18 00:00 58 01/18/18 00:00 96.6 58 19 146/73 97 Room Air 96.6 01/17/18 21:21 67 142/76 01/17/18 20:35 67 142/76 01/17/18 20:00 97.2 67 20 142/76 97 Room Air 97.2 01/17/18 20:00 64 01/17/18 17:37 134/66 01/17/18 16:00 60 01/17/18 16:00 98.0 64 18 134/66 99 Room Air 98.0 01/17/18 13:35 75 138/73 Height (Feet): 5 Height (Inches): 5.00 Weight (Pounds): 136 Objective HEENT: No pale conjunctivae. No icterus. NECK: No lymphadenopathy. CHEST: Clear. HEART: S1, S2. ABDOMEN: Soft. EXTREMITIES: No cyanosis at this time. NEUROLOGIC: Awake. Microbiology Date/Time Source Procedure Growth Status 01/15/18 17:36 Nasal Nares MRSA Culture - Final NO METHICILLIN RESISTANT STAPH AUREUS... Complete 01/15/18 22:00 Urine,Clean Catch Urine Culture - Preliminary Mixed Urogenital Contaminants Resulted 01/15/18 17:30 Rectum VRE Culture - Final NO VANCOMYCIN RESISTANT ENTEROCOCCUS ... Complete Laboratory Tests Test 01/17/18 15:15 01/18/18 08:20 Stool Occult Blood Negative (NEGATIVE) White Blood Count 6.8 K/UL (4.8-10.8) Red Blood Count 2.46 M/UL (4.70-6.10) L Hemoglobin 8.1 G/DL (14.2-18.0) L Hematocrit 23.8 % (42.0-52.0) L Mean Corpuscular Volume 97 FL (80-99) Mean Corpuscular Hemoglobin 33.0 PG (27.0-31.0) H Mean Corpuscular Hemoglobin Concent 34.1 G/DL (32.0-36.0) Red Cell Distribution Width 12.9 % (11.6-14.8) Platelet Count 207 K/UL (150-450) Mean Platelet Volume 7.4 FL (6.5-10.1) Neutrophils (%) (Auto) 66.8 % (45.0-75.0) Lymphocytes (%) (Auto) 21.8 % (20.0-45.0) Monocytes (%) (Auto) 8.1 % (1.0-10.0) Eosinophils (%) (Auto) 2.6 % (0.0-3.0) Basophils (%) (Auto) 0.6 % (0.0-2.0) Sodium Level 141 MMOL/L (136-145) Potassium Level 4.4 MMOL/L (3.5-5.1) Chloride Level 107 MMOL/L (98-107) Carbon Dioxide Level 22 MMOL/L (21-32) Anion Gap 12 mmol/L (5-15) Blood Urea Nitrogen 76 mg/dL (7-18) H Creatinine 6.2 MG/DL (0.55-1.30) H Estimat Glomerular Filtration Rate 11.3 mL/min (>60) Glucose Level 165 MG/DL (74-106) H Uric Acid 7.3 MG/DL (2.6-7.2) H Calcium Level 8.3 MG/DL (8.5-10.1) L Phosphorus Level 4.5 MG/DL (2.5-4.9) Magnesium Level 2.3 MG/DL (1.8-2.4) Total Bilirubin 0.3 MG/DL (0.2-1.0) Direct Bilirubin < 0.1 MG/DL (0.0-0.3) Aspartate Amino Transf (AST/SGOT) 16 U/L (15-37) Alanine Aminotransferase (ALT/SGPT) 19 U/L (12-78) Alkaline Phosphatase 137 U/L (46-116) H Total Protein 8.0 G/DL (6.4-8.2) Albumin 3.4 G/DL (3.4-5.0) Current Medications Medications (Trade) Dose Ordered Sig/Yannick Route PRN Reason Start Time Stop Time Status Last Admin Dose Admin Acetaminophen (Tylenol) 650 mg Q4H PRN ORAL FEVER 01/15/18 21:00 02/14/18 20:59 Albuterol/ Ipratropium (Albuterol/ Ipratropium) 3 ml Q4H PRN HHN Shortness of Breath 01/15/18 21:00 01/20/18 20:59 Aspirin (ASA) 162 mg DAILY ORAL 01/16/18 09:00 02/15/18 08:59 01/18/18 08:29 Calcium Acetate (Phoslo) 1,334 mg TIAC ORAL 01/16/18 11:30 02/15/18 11:29 01/18/18 11:45 Dextrose (Dextrose 50%) 25 ml STAT PRN IV Hypoglycemia BS BTWN 60-69 01/15/18 21:15 02/14/18 21:14 Dextrose (Dextrose 50%) 50 ml STAT PRN IV Hypoglycemia 01/15/18 21:00 02/14/18 20:59 Diltiazem HCl (Cardizem) 10 mg Q1H PRN IV HR > 120 01/15/18 21:00 02/14/18 20:59 Diltiazem HCl (Cardizem) 60 mg EVERY 8 HOURS ORAL 01/16/18 22:00 02/15/18 21:59 01/18/18 06:10 Docusate Sodium (Colace) 100 mg THREE TIMES A DAY ORAL 01/16/18 13:00 02/15/18 12:59 01/18/18 08:29 Epoetin Siddhartha (Procrit (for ESRD on dialysis)) 10,000 units WED-WED-WED SUBQ 01/17/18 21:00 02/16/18 20:59 01/17/18 21:20 Ergocalciferol (Drisdol) 50,000 intlu QWEEK ORAL 01/17/18 09:00 02/16/18 08:59 01/17/18 08:58 Heparin Sodium (Porcine) (Heparin 5000 units/ml) 5,000 units EVERY 8 HOURS SUBQ 01/15/18 22:00 02/14/18 21:59 01/18/18 06:12 Insulin Aspart (NovoLOG) BEFORE MEALS AND HS SUBQ 01/15/18 22:00 02/14/18 21:59 01/18/18 11:48 Lisinopril (Zestril) 10 mg BID ORAL 01/16/18 18:00 02/15/18 17:59 01/18/18 08:29 Meclizine HCl (Antivert) 12.5 mg BID ORAL 01/16/18 10:00 02/15/18 09:59 Metoprolol Tartrate (Lopressor) 50 mg EVERY 12 HOURS ORAL 01/15/18 21:30 02/14/18 21:29 01/17/18 20:35 Morphine Sulfate (Morphine Sulfate) 2 mg Q4H PRN IVP severe Pain (Pain Scale 7-10) 01/15/18 21:00 01/22/18 20:59 Nitroglycerin (Ntg) 0.4 mg Q5M PRN SL Prn Chest Pain 01/15/18 21:00 02/14/18 20:59 Ondansetron HCl (Zofran) 4 mg Q6H PRN IVP Nausea & Vomiting 4/21/18 21:00 02/14/18 20:59 Pantoprazole (Protonix) 40 mg DAILY ORAL 01/16/18 09:00 02/15/18 08:59 01/18/18 08:29 Polyethylene Glycol (Miralax) 17 gm DAILYPRN PRN ORAL Constipation 01/15/18 21:00 02/14/18 20:59 Pravastatin Sodium (Pravachol) 40 mg BEDTIME ORAL 01/15/18 21:00 02/14/18 20:59 01/17/18 20:35 Temazepam (Restoril) 15 mg HSPRN PRN ORAL Insomnia 01/15/18 21:00 01/22/18 20:59 Heavenly Crenshaw M.D. Jan 18, 2018 12:02
--- NOTE | 2018-01-18 12:06 | Nephrology Progress Note ---
Assessment/Plan Problem List: (1) ESRD (end stage renal disease) (2) Severe anemia (3) HTN (hypertension) (4) Atrial fibrillation, rapid Assessment Atrial Fib, converted (1) ESRD on HD (2) Chronic kidney disease (3) Anemia (4) HTN (hypertension) (5) h/o LOw Ca (6) DM Plan Patient has ESRD dialysis last 01/15 as OP next 01/18 SHI kidney noted on previous admission Echo Noted BP meds adjustments done Phos lo & Vit D PO monitor calcium Subjective ROS Limited/Unobtainable: No Objective Objective Last 24 Hour Vital Signs Date Time Temp Pulse Resp B/P (MAP) Pulse Ox O2 Delivery O2 Flow Rate FiO2 01/18/18 11:55 97.5 63 17 157/77 98 Room Air 97.5 01/18/18 08:32 59 140/70 01/18/18 08:29 140/70 01/18/18 08:00 98.1 60 18 140/70 94 Room Air 98.1 01/18/18 08:00 60 01/18/18 07:55 68 16 Room Air 01/18/18 06:10 75 140/70 01/18/18 04:00 97.0 63 20 139/68 96 Room Air 97.0 01/18/18 04:00 67 01/18/18 00:00 58 01/18/18 00:00 96.6 58 19 146/73 97 Room Air 96.6 01/17/18 21:21 67 142/76 01/17/18 20:35 67 142/76 01/17/18 20:00 97.2 67 20 142/76 97 Room Air 97.2 01/17/18 20:00 64 01/17/18 17:37 134/66 01/17/18 16:00 60 01/17/18 16:00 98.0 64 18 134/66 99 Room Air 98.0 01/17/18 13:35 75 138/73 Intake and Output 01/17/18 01/18/18 19:00 07:00 Intake Total 1600 ml Balance 1600 ml Intake Oral 1600 ml # Voids 5 2 # Bowel Movements 1 Laboratory Tests 01/17/18 15:15: Stool Occult Blood Negative 01/18/18 08:20: White Blood Count 6.8, Red Blood Count 2.46L, Hemoglobin 8.1L, Hematocrit 23.8L , Mean Corpuscular Volume 97, Mean Corpuscular Hemoglobin 33.0H, Mean Corpuscular Hemoglobin Concent 34.1, Red Cell Distribution Width 12.9, Platelet Count 207, Mean Platelet Volume 7.4, Neutrophils (%) (Auto) 66.8, Lymphocytes (% ) (Auto) 21.8, Monocytes (%) (Auto) 8.1, Eosinophils (%) (Auto) 2.6, Basophils ( %) (Auto) 0.6, Sodium Level 141, Potassium Level 4.4, Chloride Level 107, Carbon Dioxide Level 22, Anion Gap 12, Blood Urea Nitrogen 76H, Creatinine 6.2H , Estimat Glomerular Filtration Rate 11.3, Glucose Level 165H, Uric Acid 7.3H, Calcium Level 8.3L, Phosphorus Level 4.5, Magnesium Level 2.3, Total Bilirubin 0.3, Direct Bilirubin < 0.1, Aspartate Amino Transf (AST/SGOT) 16, Alanine Aminotransferase (ALT/SGPT) 19, Alkaline Phosphatase 137H, Total Protein 8.0, Albumin 3.4 Height (Feet): 5 Height (Inches): 5.00 Weight (Pounds): 136 General Appearance: no apparent distress Cardiovascular: normal rate, regular rhythm Objective no change ABDOUL PINEDA Jan 18, 2018 12:06
[2018-01-18] MEDS ORDERED: Vitamin D 1000 IU Tab ORAL SCH (12:30)
--- NOTE | 2018-01-18 12:56 | Pulmonology Progress Note ---
Assessment/Plan Problems: (1) ACS (acute coronary syndrome) (2) Respiratory distress (3) DM2 (diabetes mellitus, type 2) (4) CKD (chronic kidney disease) stage 5, GFR less than 15 ml/min (5) HTN (hypertension) Assessment/Plan all reviewed improving, no new complains respiratory treatment titrate fio2 to sat of 92% HD by buttonhole marker monitor BP Subjective ROS Limited/Unobtainable: No Constitutional: Reports: no symptoms HEENT: Repors: no symptoms Respiratory: Reports: no symptoms Allergies: Coded Allergies: HYDRALAZINE (Verified Allergy, Unknown, 12/03/17) states"heads get wuzzy" LABETALOL (Verified Allergy, Unknown, cp, 09/08/16) Mushroom (Verified Allergy, Unknown, 06/27/17) Objective Last 24 Hour Vital Signs Date Time Temp Pulse Resp B/P (MAP) Pulse Ox O2 Delivery O2 Flow Rate FiO2 01/18/18 11:55 97.5 63 17 157/77 98 Room Air 97.5 01/18/18 08:32 59 140/70 01/18/18 08:29 140/70 01/18/18 08:00 98.1 60 18 140/70 94 Room Air 98.1 01/18/18 08:00 60 01/18/18 07:55 68 16 Room Air 01/18/18 06:10 75 140/70 01/18/18 04:00 97.0 63 20 139/68 96 Room Air 97.0 01/18/18 04:00 67 01/18/18 00:00 58 01/18/18 00:00 96.6 58 19 146/73 97 Room Air 96.6 01/17/18 21:21 67 142/76 01/17/18 20:35 67 142/76 01/17/18 20:00 97.2 67 20 142/76 97 Room Air 97.2 01/17/18 20:00 64 01/17/18 17:37 134/66 01/17/18 16:00 60 01/17/18 16:00 98.0 64 18 134/66 99 Room Air 98.0 01/17/18 13:35 75 138/73 Intake and Output 01/17/18 01/18/18 19:00 07:00 Intake Total 1600 ml Balance 1600 ml Intake Oral 1600 ml # Voids 5 2 # Bowel Movements 1 General Appearance: WD/WN HEENT: normocephalic, atraumatic Respiratory/Chest: chest wall non-tender, lungs clear Cardiovascular: normal peripheral pulses, normal rate Abdomen: normal bowel sounds, soft, non tender Genitourinary: normal external genitalia Extremities: no cyanosis 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 Complete 01/15/18 22:00 Urine,Clean Catch Urine Culture - Preliminary Mixed Urogenital Contaminants Resulted 01/15/18 17:30 Rectum VRE Culture - Final NO VANCOMYCIN RESISTANT ENTEROCOCCUS ... Complete Laboratory Tests 01/17/18 15:15: Stool Occult Blood Negative 01/18/18 08:20: White Blood Count 6.8, Red Blood Count 2.46L, Hemoglobin 8.1L, Hematocrit 23.8L , Mean Corpuscular Volume 97, Mean Corpuscular Hemoglobin 33.0H, Mean Corpuscular Hemoglobin Concent 34.1, Red Cell Distribution Width 12.9, Platelet Count 207, Mean Platelet Volume 7.4, Neutrophils (%) (Auto) 66.8, Lymphocytes (% ) (Auto) 21.8, Monocytes (%) (Auto) 8.1, Eosinophils (%) (Auto) 2.6, Basophils ( %) (Auto) 0.6, Sodium Level 141, Potassium Level 4.4, Chloride Level 107, Carbon Dioxide Level 22, Anion Gap 12, Blood Urea Nitrogen 76H, Creatinine 6.2H , Estimat Glomerular Filtration Rate 11.3, Glucose Level 165H, Uric Acid 7.3H, Calcium Level 8.3L, Phosphorus Level 4.5, Magnesium Level 2.3, Total Bilirubin 0.3, Direct Bilirubin < 0.1, Aspartate Amino Transf (AST/SGOT) 16, Alanine Aminotransferase (ALT/SGPT) 19, Alkaline Phosphatase 137H, Total Protein 8.0, Albumin 3.4 Current Medications Medications (Trade) Dose Ordered Sig/Yannick Route PRN Reason Start Time Stop Time Status Last Admin Dose Admin Acetaminophen (Tylenol) 650 mg Q4H PRN ORAL FEVER 01/15/18 21:00 02/14/18 20:59 Albuterol/ Ipratropium (Albuterol/ Ipratropium) 3 ml Q4H PRN HHN Shortness of Breath 01/15/18 21:00 01/20/18 20:59 Aspirin (ASA) 162 mg DAILY ORAL 01/16/18 09:00 02/15/18 08:59 01/18/18 08:29 Calcium Acetate (Phoslo) 1,334 mg TIAC ORAL 01/16/18 11:30 02/15/18 11:29 01/18/18 11:45 Dextrose (Dextrose 50%) 25 ml STAT PRN IV Hypoglycemia BS BTWN 60-69 01/15/18 21:15 02/14/18 21:14 Dextrose (Dextrose 50%) 50 ml STAT PRN IV Hypoglycemia 01/15/18 21:00 02/14/18 20:59 Diltiazem HCl (Cardizem) 10 mg Q1H PRN IV HR > 120 01/15/18 21:00 02/14/18 20:59 Diltiazem HCl (Cardizem) 60 mg EVERY 8 HOURS ORAL 01/16/18 22:00 02/15/18 21:59 01/18/18 06:10 Docusate Sodium (Colace) 100 mg THREE TIMES A DAY ORAL 01/16/18 13:00 02/15/18 12:59 01/18/18 08:29 Epoetin Siddhartha (Procrit (for ESRD on dialysis)) 10,000 units WED-WED-WED SUBQ 01/17/18 21:00 02/16/18 20:59 01/17/18 21:20 Heparin Sodium (Porcine) (Heparin 5000 units/ml) 5,000 units EVERY 8 HOURS SUBQ 01/15/18 22:00 02/14/18 21:59 01/18/18 06:12 Insulin Aspart (NovoLOG) BEFORE MEALS AND HS SUBQ 01/15/18 22:00 02/14/18 21:59 01/18/18 11:48 Lisinopril (Zestril) 10 mg BID ORAL 01/16/18 18:00 02/15/18 17:59 01/18/18 08:29 Meclizine HCl (Antivert) 12.5 mg BID ORAL 01/16/18 10:00 02/15/18 09:59 Metoprolol Tartrate (Lopressor) 50 mg EVERY 12 HOURS ORAL 01/15/18 21:30 02/14/18 21:29 01/17/18 20:35 Morphine Sulfate (Morphine Sulfate) 2 mg Q4H PRN IVP severe Pain (Pain Scale 7-10) 01/15/18 21:00 01/22/18 20:59 Nitroglycerin (Ntg) 0.4 mg Q5M PRN SL Prn Chest Pain 01/15/18 21:00 02/14/18 20:59 Ondansetron HCl (Zofran) 4 mg Q6H PRN IVP Nausea & Vomiting 01/15/18 21:00 02/14/18 20:59 Pantoprazole (Protonix) 40 mg DAILY ORAL 01/16/18 09:00 02/15/18 08:59 01/18/18 08:29 Polyethylene Glycol (Miralax) 17 gm DAILYPRN PRN ORAL Constipation 01/15/18 21:00 02/14/18 20:59 Pravastatin Sodium (Pravachol) 40 mg BEDTIME ORAL 01/15/18 21:00 02/14/18 20:59 01/17/18 20:35 Temazepam (Restoril) 15 mg HSPRN PRN ORAL Insomnia 01/15/18 21:00 01/22/18 20:59 Vitamin D (Vitamin D) 3,000 intlu DAILY ORAL 01/18/18 12:30 02/17/18 12:29 Jose Bashir MD Jan 18, 2018 12:56
--- NOTE | 2018-01-18 13:56 | General Progress Note ---
Assessment/Plan Problem List: (1) Anemia ICD Codes: D64.9 - Anemia, unspecified SNOMED: 557960000 (2) HTN (hypertension) ICD Codes: I10 - Essential (primary) hypertension SNOMED: 55481240 (3) DM2 (diabetes mellitus, type 2) ICD Codes: E11.9 - Type 2 diabetes mellitus without complications SNOMED: 84558308 (4) Renal failure ICD Codes: N19 - Unspecified kidney failure SNOMED: 62813363 (5) Atrial fibrillation, rapid ICD Codes: I48.91 - Unspecified atrial fibrillation SNOMED: 786274710 Status: stable Assessment/Plan ot pt diet transfuse prn dialysis prn cardio f/u cbc bmp am dc w hh if clear Subjective Constitutional: Reports: weakness Allergies: Coded Allergies: HYDRALAZINE (Verified Allergy, Unknown, 12/03/17) states"heads get wuzzy" LABETALOL (Verified Allergy, Unknown, cp, 09/08/16) Mushroom (Verified Allergy, Unknown, 06/27/17) All Systems: reviewed and negative except above Subjective sl anxious in bed Objective Last 24 Hour Vital Signs Date Time Temp Pulse Resp B/P (MAP) Pulse Ox O2 Delivery O2 Flow Rate FiO2 01/18/18 13:42 63 157/77 01/18/18 11:55 97.5 63 17 157/77 98 Room Air 97.5 01/18/18 08:32 59 140/70 01/18/18 08:29 140/70 01/18/18 08:00 98.1 60 18 140/70 94 Room Air 98.1 01/18/18 08:00 60 01/18/18 07:55 68 16 Room Air 01/18/18 06:10 75 140/70 01/18/18 04:00 97.0 63 20 139/68 96 Room Air 97.0 01/18/18 04:00 67 01/18/18 00:00 58 01/18/18 00:00 96.6 58 19 146/73 97 Room Air 96.6 01/17/18 21:21 67 142/76 01/17/18 20:35 67 142/76 01/17/18 20:00 97.2 67 20 142/76 97 Room Air 97.2 01/17/18 20:00 64 01/17/18 17:37 134/66 01/17/18 16:00 60 01/17/18 16:00 98.0 64 18 134/66 99 Room Air 98.0 Intake and Output 01/17/18 01/18/18 19:00 07:00 Intake Total 1600 ml Balance 1600 ml Intake Oral 1600 ml # Voids 5 2 # Bowel Movements 1 Laboratory Tests 01/17/18 15:15: Stool Occult Blood Negative 01/18/18 08:20: White Blood Count 6.8, Red Blood Count 2.46L, Hemoglobin 8.1L, Hematocrit 23.8L , Mean Corpuscular Volume 97, Mean Corpuscular Hemoglobin 33.0H, Mean Corpuscular Hemoglobin Concent 34.1, Red Cell Distribution Width 12.9, Platelet Count 207, Mean Platelet Volume 7.4, Neutrophils (%) (Auto) 66.8, Lymphocytes (% ) (Auto) 21.8, Monocytes (%) (Auto) 8.1, Eosinophils (%) (Auto) 2.6, Basophils ( %) (Auto) 0.6, Sodium Level 141, Potassium Level 4.4, Chloride Level 107, Carbon Dioxide Level 22, Anion Gap 12, Blood Urea Nitrogen 76H, Creatinine 6.2H , Estimat Glomerular Filtration Rate 11.3, Glucose Level 165H, Uric Acid 7.3H, Calcium Level 8.3L, Phosphorus Level 4.5, Magnesium Level 2.3, Total Bilirubin 0.3, Direct Bilirubin < 0.1, Aspartate Amino Transf (AST/SGOT) 16, Alanine Aminotransferase (ALT/SGPT) 19, Alkaline Phosphatase 137H, Total Protein 8.0, Albumin 3.4 Height (Feet): 5 Height (Inches): 5.00 Weight (Pounds): 136 General Appearance: alert EENT: normal ENT inspection Neck: normal alignment Cardiovascular: normal peripheral pulses, normal rate, regular rhythm Respiratory/Chest: chest wall non-tender, lungs clear, normal breath sounds Abdomen: normal bowel sounds, non tender, soft Extremities: normal inspection Edema: no edema noted Arm (L), no edema noted Arm (R), no edema noted Leg (L), no edema noted Leg (R), no edema noted Pedal (L), no edema noted Pedal (R), no edema noted Generalized Neurologic: responsive, motor weakness Skin: normal pigmentation, warm/dry FREDA CHUNG Jan 18, 2018 13:56
--- NOTE | 2018-01-18 14:20 | GI Progress Note ---
Assessment/Plan Problems: (1) Hepatitis B ICD Codes: B19.10 - Unspecified viral hepatitis B without hepatic coma SNOMED: 25414922 (2) Severe anemia ICD Codes: D64.9 - Anemia, unspecified SNOMED: 363132077 (3) ESRD (end stage renal disease) ICD Codes: N18.6 - End stage renal disease SNOMED: 79480962 (4) Anemia ICD Codes: D64.9 - Anemia, unspecified SNOMED: 799848736 (5) DM2 (diabetes mellitus, type 2) ICD Codes: E11.9 - Type 2 diabetes mellitus without complications SNOMED: 95723774 Status: stable Status Narrative Discussed with Dr. Agarwal. Assessment/Plan OB stool negative okay for DC per GI standpoint monitor H&H, prn transfusions bowel regime ppi fu labs fu outpatient Hep B treatment >> per pt, had ?rxn to first vaccination. Subjective Gastrointestinal/Abdominal: Reports: no symptoms Objective Last 24 Hour Vital Signs Date Time Temp Pulse Resp B/P (MAP) Pulse Ox O2 Delivery O2 Flow Rate FiO2 01/18/18 13:42 63 157/77 01/18/18 11:55 97.5 63 17 157/77 98 Room Air 97.5 01/18/18 08:32 59 140/70 01/18/18 08:29 140/70 01/18/18 08:00 98.1 60 18 140/70 94 Room Air 98.1 01/18/18 08:00 60 01/18/18 07:55 68 16 Room Air 01/18/18 06:10 75 140/70 01/18/18 04:00 97.0 63 20 139/68 96 Room Air 97.0 01/18/18 04:00 67 01/18/18 00:00 58 01/18/18 00:00 96.6 58 19 146/73 97 Room Air 96.6 01/17/18 21:21 67 142/76 01/17/18 20:35 67 142/76 01/17/18 20:00 97.2 67 20 142/76 97 Room Air 97.2 01/17/18 20:00 64 01/17/18 17:37 134/66 01/17/18 16:00 60 01/17/18 16:00 98.0 64 18 134/66 99 Room Air 98.0 Intake and Output 01/17/18 01/18/18 19:00 07:00 Intake Total 1600 ml Balance 1600 ml Intake Oral 1600 ml # Voids 5 2 # Bowel Movements 1 Laboratory Tests Test 01/17/18 15:15 01/18/18 08:20 Stool Occult Blood Negative (NEGATIVE) White Blood Count 6.8 K/UL (4.8-10.8) Red Blood Count 2.46 M/UL (4.70-6.10) L Hemoglobin 8.1 G/DL (14.2-18.0) L Hematocrit 23.8 % (42.0-52.0) L Mean Corpuscular Volume 97 FL (80-99) Mean Corpuscular Hemoglobin 33.0 PG (27.0-31.0) H Mean Corpuscular Hemoglobin Concent 34.1 G/DL (32.0-36.0) Red Cell Distribution Width 12.9 % (11.6-14.8) Platelet Count 207 K/UL (150-450) Mean Platelet Volume 7.4 FL (6.5-10.1) Neutrophils (%) (Auto) 66.8 % (45.0-75.0) Lymphocytes (%) (Auto) 21.8 % (20.0-45.0) Monocytes (%) (Auto) 8.1 % (1.0-10.0) Eosinophils (%) (Auto) 2.6 % (0.0-3.0) Basophils (%) (Auto) 0.6 % (0.0-2.0) Sodium Level 141 MMOL/L (136-145) Potassium Level 4.4 MMOL/L (3.5-5.1) Chloride Level 107 MMOL/L (98-107) Carbon Dioxide Level 22 MMOL/L (21-32) Anion Gap 12 mmol/L (5-15) Blood Urea Nitrogen 76 mg/dL (7-18) H Creatinine 6.2 MG/DL (0.55-1.30) H Estimat Glomerular Filtration Rate 11.3 mL/min (>60) Glucose Level 165 MG/DL (74-106) H Uric Acid 7.3 MG/DL (2.6-7.2) H Calcium Level 8.3 MG/DL (8.5-10.1) L Phosphorus Level 4.5 MG/DL (2.5-4.9) Magnesium Level 2.3 MG/DL (1.8-2.4) Total Bilirubin 0.3 MG/DL (0.2-1.0) Direct Bilirubin < 0.1 MG/DL (0.0-0.3) Aspartate Amino Transf (AST/SGOT) 16 U/L (15-37) Alanine Aminotransferase (ALT/SGPT) 19 U/L (12-78) Alkaline Phosphatase 137 U/L (46-116) H Total Protein 8.0 G/DL (6.4-8.2) Albumin 3.4 G/DL (3.4-5.0) Height (Feet): 5 Height (Inches): 5.00 Weight (Pounds): 136 General Appearance: WD/WN, no apparent distress, alert Cardiovascular: normal rate Respiratory/Chest: normal breath sounds, no respiratory distress Abdominal Exam: normal bowel sounds, non tender, soft Extremities: normal range of motion, non-tender Trinity Gómez N.P. Jan 18, 2018 14:20
--- NOTE | 2018-01-18 15:49 | Cardiac Electrophysiology PN ---
Assessment/Plan Assessment/Plan 1. Troponin elevation.Due to renal failure. 3 follow up troponins are negative. The patient does not have any chest pain. Echocardiogram, which showed ejection fraction of 55%. 2. Bilateral lower extremity edema. His lower extremity Doppler was negative for deep venous thrombosis. 3. Atrial fibrillation and rapid ventricular response. Converted to sinus rhythm. Increase metoprolol to 100 mg b.i.d. and DC Cardizem Off Anticoagulation for severe anemia 4. HTN. On Lisinopril 10 bid in addition to Metoprolol 100 bid and HD 5. End-stage renal disease, on hemodialysis. 6. Anemia, on Epogen. SAMMY RN Subjective Subjective Feeling better. No Arrhythmias.Awaiting HD. Had a single episode of blocked PAC Objective Last 24 Hour Vital Signs Date Time Temp Pulse Resp B/P (MAP) Pulse Ox O2 Delivery O2 Flow Rate FiO2 01/18/18 13:42 63 157/77 01/18/18 12:00 73 01/18/18 11:55 97.5 63 17 157/77 98 Room Air 97.5 01/18/18 08:32 59 140/70 01/18/18 08:29 140/70 01/18/18 08:00 98.1 60 18 140/70 94 Room Air 98.1 01/18/18 08:00 60 01/18/18 07:55 68 16 Room Air 01/18/18 06:10 75 140/70 01/18/18 04:00 97.0 63 20 139/68 96 Room Air 97.0 01/18/18 04:00 67 01/18/18 00:00 58 01/18/18 00:00 96.6 58 19 146/73 97 Room Air 96.6 01/17/18 21:21 67 142/76 01/17/18 20:35 67 142/76 01/17/18 20:00 97.2 67 20 142/76 97 Room Air 97.2 01/17/18 20:00 64 01/17/18 17:37 134/66 01/17/18 16:00 60 01/17/18 16:00 98.0 64 18 134/66 99 Room Air 98.0 Intake and Output 01/17/18 01/18/18 19:00 07:00 Intake Total 1600 ml Balance 1600 ml Intake Oral 1600 ml # Voids 5 2 # Bowel Movements 1 Laboratory Tests Test 01/18/18 08:20 White Blood Count 6.8 K/UL (4.8-10.8) Red Blood Count 2.46 M/UL (4.70-6.10) L Hemoglobin 8.1 G/DL (14.2-18.0) L Hematocrit 23.8 % (42.0-52.0) L Mean Corpuscular Volume 97 FL (80-99) Mean Corpuscular Hemoglobin 33.0 PG (27.0-31.0) H Mean Corpuscular Hemoglobin Concent 34.1 G/DL (32.0-36.0) Red Cell Distribution Width 12.9 % (11.6-14.8) Platelet Count 207 K/UL (150-450) Mean Platelet Volume 7.4 FL (6.5-10.1) Neutrophils (%) (Auto) 66.8 % (45.0-75.0) Lymphocytes (%) (Auto) 21.8 % (20.0-45.0) Monocytes (%) (Auto) 8.1 % (1.0-10.0) Eosinophils (%) (Auto) 2.6 % (0.0-3.0) Basophils (%) (Auto) 0.6 % (0.0-2.0) Sodium Level 141 MMOL/L (136-145) Potassium Level 4.4 MMOL/L (3.5-5.1) Chloride Level 107 MMOL/L (98-107) Carbon Dioxide Level 22 MMOL/L (21-32) Anion Gap 12 mmol/L (5-15) Blood Urea Nitrogen 76 mg/dL (7-18) H Creatinine 6.2 MG/DL (0.55-1.30) H Estimat Glomerular Filtration Rate 11.3 mL/min (>60) Glucose Level 165 MG/DL (74-106) H Uric Acid 7.3 MG/DL (2.6-7.2) H Calcium Level 8.3 MG/DL (8.5-10.1) L Phosphorus Level 4.5 MG/DL (2.5-4.9) Magnesium Level 2.3 MG/DL (1.8-2.4) Total Bilirubin 0.3 MG/DL (0.2-1.0) Direct Bilirubin < 0.1 MG/DL (0.0-0.3) Aspartate Amino Transf (AST/SGOT) 16 U/L (15-37) Alanine Aminotransferase (ALT/SGPT) 19 U/L (12-78) Alkaline Phosphatase 137 U/L (46-116) H Total Protein 8.0 G/DL (6.4-8.2) Albumin 3.4 G/DL (3.4-5.0) Microbiology Date/Time Source Procedure Growth Status 01/15/18 17:36 Nasal Nares MRSA Culture - Final NO METHICILLIN RESISTANT STAPH AUREUS... Complete 01/15/18 22:00 Urine,Clean Catch Urine Culture - Preliminary Mixed Urogenital Contaminants Resulted 01/15/18 17:30 Rectum VRE Culture - Final NO VANCOMYCIN RESISTANT ENTEROCOCCUS ... Complete Objective HEAD AND NECK: Showed no JVD or carotid bruits. LUNGS: Clear. He has dialysis catheter in the right chest. CARDIOVASCULAR: Shows regular S1 and S2 with no gallop or murmur. ABDOMEN: Soft. EXTREMITIES: Trace pitting edema. Tucker Herrmann MD Jan 18, 2018 15:49
[2018-01-19] VITALS: BP 168/87
[2018-01-19] MEDS ORDERED: Nitroglycerin Subl 0.4mg tab SL PRN (01:15)
[2018-01-19] MEDS ORDERED: dilTIAZem HCl 25mg/5ml Inj IV PRN (02:00)
[2018-01-19 04:00] VITALS: BP 166/90
[2018-01-19] MEDS ORDERED: Albuterol/Ipratropium 3ml neb HHN PRN (05:00)
[2018-01-19] MEDS ORDERED: Morphine Sulfate 4mg/ml Inj IVP PRN (05:00)
[2018-01-19] MEDS: Heparin 5000 units/ml inj SUBQ SCH ×2 (05:39→14:00)
[2018-01-19] MEDS: NovoLOG Insulin Flexpen SUBQ SCH ×2 (05:45→11:55)
[2018-01-19] MEDS: Calcium Acetate 667mg Tab ORAL SCH ×2 (05:45→12:25)
[2018-01-19] MEDS: Docusate 100mg cap ORAL SCH ×2 (08:30→12:26)
[2018-01-19] MEDS: Meclizine 25mg tab ORAL SCH ×2 (08:31→08:38)
[2018-01-19] MEDS ORDERED: Lisinopril 10mg tab ORAL SCH (09:00)
[2018-01-19] MEDS ORDERED: Vitamin D 1000 IU Tab ORAL SCH (09:00)
[2018-01-19] MEDS ORDERED: Aspirin Baby 81mg ORAL SCH (09:00)
[2018-01-19 11:10] LABS: BASOPHILS % (AUTO) 1.1 % (0.0-2.0); EOSINOPHILS % (AUTO) 2.1 % (0.0-3.0); HEMATOCRIT 24.2 % (42.0-52.0); HEMOGLOBIN 8.3 G/DL (14.2-18.0); LYMPHOCYTES % (AUTO) 16.4 % (20.0-45.0); MEAN CORPUSCULAR VOLUME 97 FL (80-99); MONOCYTES % (AUTO) 6.7 % (1.0-10.0); NEUTROPHILS % (AUTO) 73.6 % (45.0-75.0); PLATELET COUNT 231 K/UL (150-450); RED CELL DISTRIBUTION WIDTH 12.7 % (11.6-14.8)
[2018-01-19 11:18] LABS: ANION GAP 10 mmol/L (5-15); BLOOD UREA NITROGEN 48 mg/dL (7-18); CALCIUM 8.4 MG/DL (8.5-10.1); CARBON DIOXIDE 28 MMOL/L (21-32); CHLORIDE 102 MMOL/L (98-107); CREATININE 4.2 MG/DL (0.55-1.30); POTASSIUM 4.1 MMOL/L (3.5-5.1); SODIUM 140 MMOL/L (136-145)
[2018-01-19 12:00] VITALS: BP 165/81
--- NOTE | 2018-01-19 12:54 | General Progress Note ---
Assessment/Plan Problem List: (1) Anemia ICD Codes: D64.9 - Anemia, unspecified SNOMED: 470865483 (2) HTN (hypertension) ICD Codes: I10 - Essential (primary) hypertension SNOMED: 15540159 (3) DM2 (diabetes mellitus, type 2) ICD Codes: E11.9 - Type 2 diabetes mellitus without complications SNOMED: 53736984 (4) Renal failure ICD Codes: N19 - Unspecified kidney failure SNOMED: 79944720 (5) Atrial fibrillation, rapid ICD Codes: I48.91 - Unspecified atrial fibrillation SNOMED: 000104796 Status: stable, progressing, tolerating diet Assessment/Plan ot pt diet transfuse prn dialysis prn cardio f/u cbc bmp am dc w hh if clear Subjective Constitutional: Reports: weakness Allergies: Coded Allergies: HYDRALAZINE (Verified Allergy, Unknown, 12/03/17) states"heads get wuzzy" LABETALOL (Verified Allergy, Unknown, cp, 09/08/16) Mushroom (Verified Allergy, Unknown, 06/27/17) All Systems: reviewed and negative except above Subjective sl anxious in bed Objective Last 24 Hour Vital Signs Date Time Temp Pulse Resp B/P (MAP) Pulse Ox O2 Delivery O2 Flow Rate FiO2 01/19/18 10:10 79 18 Room Air 01/19/18 08:33 67 170/78 01/19/18 08:33 170/78 01/19/18 04:00 98.1 71 19 166/90 99 98.1 01/19/18 00:00 82 01/19/18 00:00 98.1 71 20 168/87 98 98.1 01/18/18 22:12 Room Air 01/18/18 22:10 97.7 46 20 163/74 Room Air 97.7 01/18/18 21:22 73 159/84 01/18/18 20:00 98.0 73 16 159/84 100 Room Air 98.0 01/18/18 20:00 81 01/18/18 18:30 97.5 78 20 158/87 Room Air 97.5 01/18/18 18:30 Room Air 01/18/18 17:10 170/83 01/18/18 16:00 98.0 75 18 170/83 98 Room Air 98.0 01/18/18 16:00 76 01/18/18 13:42 63 157/77 Intake and Output 01/18/18 01/19/18 19:00 07:00 Intake Total 1000 ml Output Total 2000 ml Balance 1000 ml -2000 ml Other 1000 ml Output Hemodialysis UF 2000 ml # Voids 2 3 # Bowel Movements 2 Laboratory Tests 01/19/18 10:19: White Blood Count 8.0, Red Blood Count 2.50L, Hemoglobin 8.3L, Hematocrit 24.2L , Mean Corpuscular Volume 97, Mean Corpuscular Hemoglobin 33.2H, Mean Corpuscular Hemoglobin Concent 34.4, Red Cell Distribution Width 12.7, Platelet Count 231, Mean Platelet Volume 6.7, Neutrophils (%) (Auto) 73.6, Lymphocytes (% ) (Auto) 16.4L, Monocytes (%) (Auto) 6.7, Eosinophils (%) (Auto) 2.1, Basophils (%) (Auto) 1.1, Sodium Level 140, Potassium Level 4.1, Chloride Level 102, Carbon Dioxide Level 28, Anion Gap 10, Blood Urea Nitrogen 48H, Creatinine 4.2H , Estimat Glomerular Filtration Rate 17.7, Glucose Level 176H, Calcium Level 8.4L Height (Feet): 5 Height (Inches): 5.00 Weight (Pounds): 136 General Appearance: alert EENT: normal ENT inspection Neck: normal alignment Cardiovascular: normal peripheral pulses, normal rate, regular rhythm Respiratory/Chest: chest wall non-tender, lungs clear, normal breath sounds Abdomen: normal bowel sounds, non tender, soft Extremities: normal inspection Edema: no edema noted Arm (L), no edema noted Arm (R), no edema noted Leg (L), no edema noted Leg (R), no edema noted Pedal (L), no edema noted Pedal (R), no edema noted Generalized Neurologic: responsive, motor weakness Skin: normal pigmentation, warm/dry FREDA CHUNG Jan 19, 2018 12:54
--- NOTE | 2018-01-19 12:56 | Cardiac Electrophysiology PN ---
Assessment/Plan Assessment/Plan 1. Troponin elevation.Due to renal failure. 3 follow up troponins are negative. The patient does not have any chest pain. Echocardiogram, which showed ejection fraction of 55%. 2. Bilateral lower extremity edema. His lower extremity Doppler was negative for deep venous thrombosis. 3. Atrial fibrillation and rapid ventricular response. Converted to sinus rhythm. On Metoprolol 100 mg b.i.d. Off Anticoagulation for severe anemia 4. HTN. On Lisinopril 10 bid and Metoprolol 100 bid and HD 5. End-stage renal disease, on hemodialysis. 6. Anemia, on Epogen. SAMMY RN Subjective Subjective Feeling better. .Awaiting discharge Objective Last 24 Hour Vital Signs Date Time Temp Pulse Resp B/P (MAP) Pulse Ox O2 Delivery O2 Flow Rate FiO2 01/19/18 10:10 79 18 Room Air 01/19/18 08:33 67 170/78 01/19/18 08:33 170/78 01/19/18 04:00 98.1 71 19 166/90 99 98.1 01/19/18 00:00 82 01/19/18 00:00 98.1 71 20 168/87 98 98.1 01/18/18 22:12 Room Air 01/18/18 22:10 97.7 46 20 163/74 Room Air 97.7 01/18/18 21:22 73 159/84 01/18/18 20:00 98.0 73 16 159/84 100 Room Air 98.0 01/18/18 20:00 81 01/18/18 18:30 97.5 78 20 158/87 Room Air 97.5 01/18/18 18:30 Room Air 01/18/18 17:10 170/83 01/18/18 16:00 98.0 75 18 170/83 98 Room Air 98.0 01/18/18 16:00 76 01/18/18 13:42 63 157/77 Intake and Output 01/18/18 01/19/18 19:00 07:00 Intake Total 1000 ml Output Total 2000 ml Balance 1000 ml -2000 ml Other 1000 ml Output Hemodialysis UF 2000 ml # Voids 2 3 # Bowel Movements 2 Laboratory Tests Test 01/19/18 10:19 White Blood Count 8.0 K/UL (4.8-10.8) Red Blood Count 2.50 M/UL (4.70-6.10) L Hemoglobin 8.3 G/DL (14.2-18.0) L Hematocrit 24.2 % (42.0-52.0) L Mean Corpuscular Volume 97 FL (80-99) Mean Corpuscular Hemoglobin 33.2 PG (27.0-31.0) H Mean Corpuscular Hemoglobin Concent 34.4 G/DL (32.0-36.0) Red Cell Distribution Width 12.7 % (11.6-14.8) Platelet Count 231 K/UL (150-450) Mean Platelet Volume 6.7 FL (6.5-10.1) Neutrophils (%) (Auto) 73.6 % (45.0-75.0) Lymphocytes (%) (Auto) 16.4 % (20.0-45.0) L Monocytes (%) (Auto) 6.7 % (1.0-10.0) Eosinophils (%) (Auto) 2.1 % (0.0-3.0) Basophils (%) (Auto) 1.1 % (0.0-2.0) Sodium Level 140 MMOL/L (136-145) Potassium Level 4.1 MMOL/L (3.5-5.1) Chloride Level 102 MMOL/L (98-107) Carbon Dioxide Level 28 MMOL/L (21-32) Anion Gap 10 mmol/L (5-15) Blood Urea Nitrogen 48 mg/dL (7-18) H Creatinine 4.2 MG/DL (0.55-1.30) H Estimat Glomerular Filtration Rate 17.7 mL/min (>60) Glucose Level 176 MG/DL (74-106) H Calcium Level 8.4 MG/DL (8.5-10.1) L Objective HEAD AND NECK: Showed no JVD or carotid bruits. LUNGS: Clear. He has dialysis catheter in the right chest. CARDIOVASCULAR: Shows regular S1 and S2 with no gallop or murmur. ABDOMEN: Soft. EXTREMITIES: Trace pitting edema. Tucker Herrmann MD Jan 19, 2018 12:56
--- NOTE | 2018-01-19 14:07 | Pulmonology Progress Note ---
Assessment/Plan Problems: (1) ACS (acute coronary syndrome) (2) Respiratory distress (3) DM2 (diabetes mellitus, type 2) (4) CKD (chronic kidney disease) stage 5, GFR less than 15 ml/min (5) HTN (hypertension) Assessment/Plan all reviewed improving, no new complains respiratory treatment titrate fio2 to sat of 92% HD by appliance tester, done yesterday monitor BP, controlled Subjective ROS Limited/Unobtainable: No Constitutional: Reports: no symptoms HEENT: Repors: no symptoms Respiratory: Reports: no symptoms Allergies: Coded Allergies: HYDRALAZINE (Verified Allergy, Unknown, 12/03/17) states"heads get wuzzy" LABETALOL (Verified Allergy, Unknown, cp, 09/08/16) Mushroom (Verified Allergy, Unknown, 06/27/17) Objective Last 24 Hour Vital Signs Date Time Temp Pulse Resp B/P (MAP) Pulse Ox O2 Delivery O2 Flow Rate FiO2 01/19/18 12:00 98.3 20 165/81 100 Room Air 98.3 01/19/18 10:10 79 18 Room Air 01/19/18 08:33 67 170/78 01/19/18 08:33 170/78 01/19/18 04:00 98.1 71 19 166/90 99 98.1 01/19/18 00:00 82 01/19/18 00:00 98.1 71 20 168/87 98 98.1 01/18/18 22:12 Room Air 01/18/18 22:10 97.7 46 20 163/74 Room Air 97.7 01/18/18 21:22 73 159/84 01/18/18 20:00 98.0 73 16 159/84 100 Room Air 98.0 01/18/18 20:00 81 01/18/18 18:30 97.5 78 20 158/87 Room Air 97.5 01/18/18 18:30 Room Air 01/18/18 17:10 170/83 01/18/18 16:00 98.0 75 18 170/83 98 Room Air 98.0 01/18/18 16:00 76 Intake and Output 01/18/18 01/19/18 19:00 07:00 Intake Total 1000 ml Output Total 2000 ml Balance 1000 ml -2000 ml Other 1000 ml Output Hemodialysis UF 2000 ml # Voids 2 3 # Bowel Movements 2 General Appearance: WD/WN HEENT: normocephalic, atraumatic Respiratory/Chest: chest wall non-tender, lungs clear Cardiovascular: normal peripheral pulses, normal rate Abdomen: normal bowel sounds, soft, non tender Genitourinary: normal external genitalia 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 Lymphatic: no neck adenopathy Laboratory Tests 01/19/18 10:19: White Blood Count 8.0, Red Blood Count 2.50L, Hemoglobin 8.3L, Hematocrit 24.2L , Mean Corpuscular Volume 97, Mean Corpuscular Hemoglobin 33.2H, Mean Corpuscular Hemoglobin Concent 34.4, Red Cell Distribution Width 12.7, Platelet Count 231, Mean Platelet Volume 6.7, Neutrophils (%) (Auto) 73.6, Lymphocytes (% ) (Auto) 16.4L, Monocytes (%) (Auto) 6.7, Eosinophils (%) (Auto) 2.1, Basophils (%) (Auto) 1.1, Sodium Level 140, Potassium Level 4.1, Chloride Level 102, Carbon Dioxide Level 28, Anion Gap 10, Blood Urea Nitrogen 48H, Creatinine 4.2H , Estimat Glomerular Filtration Rate 17.7, Glucose Level 176H, Calcium Level 8.4L Current Medications Medications (Trade) Dose Ordered Sig/Yannick Route PRN Reason Start Time Stop Time Status Last Admin Dose Admin Acetaminophen (Tylenol) 650 mg Q4H PRN ORAL FEVER 01/19/18 05:00 02/14/18 20:59 Albuterol/ Ipratropium (Albuterol/ Ipratropium) 3 ml Q4H PRN HHN Shortness of Breath 01/19/18 05:00 01/20/18 20:59 Aspirin (ASA) 162 mg DAILY ORAL 01/19/18 09:00 02/15/18 08:59 01/19/18 08:31 Calcium Acetate (Phoslo) 1,334 mg TIAC ORAL 01/19/18 06:30 02/15/18 11:29 01/19/18 12:25 Dextrose (Dextrose 50%) 25 ml STAT PRN IV Hypoglycemia BS BTWN 60-69 01/19/18 21:15 02/14/18 21:14 Dextrose (Dextrose 50%) 50 ml STAT PRN IV Hypoglycemia 01/19/18 21:00 02/14/18 20:59 Diltiazem HCl (Cardizem) 10 mg Q1H PRN IV HR > 120 01/19/18 02:00 02/14/18 20:59 Docusate Sodium (Colace) 100 mg THREE TIMES A DAY ORAL 01/19/18 09:00 02/15/18 12:59 01/19/18 12:26 Epoetin Siddhartha (Procrit (for ESRD on dialysis)) 10,000 units WED-WED-WED SUBQ 01/19/18 21:00 02/16/18 20:59 Heparin Sodium (Porcine) (Heparin 5000 units/ml) 5,000 units EVERY 8 HOURS SUBQ 01/19/18 06:00 02/14/18 21:59 01/19/18 05:39 Insulin Aspart (NovoLOG) BEFORE MEALS AND HS SUBQ 01/19/18 06:30 02/14/18 21:59 01/19/18 11:55 Lisinopril (Zestril) 10 mg BID ORAL 01/19/18 09:00 02/15/18 17:59 01/19/18 08:33 Meclizine HCl (Antivert) 12.5 mg BID ORAL 01/19/18 09:00 02/15/18 09:59 Metoprolol Tartrate (Lopressor) 100 mg EVERY 12 HOURS ORAL 01/19/18 09:00 02/14/18 21:29 01/19/18 08:33 Morphine Sulfate (Morphine Sulfate) 2 mg Q4H PRN IVP severe Pain (Pain Scale 7-10) 01/19/18 05:00 01/22/18 20:59 Nitroglycerin (Ntg) 0.4 mg Q5M PRN SL Prn Chest Pain 01/19/18 01:15 02/14/18 20:59 Ondansetron HCl (Zofran) 4 mg Q6H PRN IVP Nausea & Vomiting 01/19/18 03:00 02/14/18 20:59 Pantoprazole (Protonix) 40 mg DAILY ORAL 01/19/18 09:00 02/15/18 08:59 01/19/18 08:32 Polyethylene Glycol (Miralax) 17 gm DAILYPRN PRN ORAL Constipation 01/19/18 21:00 02/14/18 20:59 Pravastatin Sodium (Pravachol) 40 mg BEDTIME ORAL 01/19/18 21:00 02/14/18 20:59 Temazepam (Restoril) 15 mg HSPRN PRN ORAL Insomnia 01/19/18 21:00 01/22/18 20:59 Vitamin D (Vitamin D) 3,000 intlu DAILY ORAL 01/19/18 09:00 02/17/18 12:29 01/19/18 08:31 Jose Bashir MD Jan 19, 2018 14:07
--- NOTE | 2018-01-19 14:08 | GI Progress Note ---
Assessment/Plan Problems: (1) Hepatitis B ICD Codes: B19.10 - Unspecified viral hepatitis B without hepatic coma SNOMED: 82725452 (2) Severe anemia ICD Codes: D64.9 - Anemia, unspecified SNOMED: 719295364 (3) ESRD (end stage renal disease) ICD Codes: N18.6 - End stage renal disease SNOMED: 82194341 (4) Anemia ICD Codes: D64.9 - Anemia, unspecified SNOMED: 631280319 (5) DM2 (diabetes mellitus, type 2) ICD Codes: E11.9 - Type 2 diabetes mellitus without complications SNOMED: 50526279 Status: stable, unchanged Status Narrative Discussed with Dr. Agarwal. Assessment/Plan OB stool negative okay for DC per GI standpoint monitor H&H, prn transfusions bowel regime ppi fu labs fu outpatient Hep B treatment >> per pt, had ?rxn to first vaccination. Subjective Gastrointestinal/Abdominal: Reports: no symptoms Objective Last 24 Hour Vital Signs Date Time Temp Pulse Resp B/P (MAP) Pulse Ox O2 Delivery O2 Flow Rate FiO2 01/19/18 12:00 98.3 20 165/81 100 Room Air 98.3 01/19/18 10:10 79 18 Room Air 01/19/18 08:33 67 170/78 01/19/18 08:33 170/78 01/19/18 04:00 98.1 71 19 166/90 99 98.1 01/19/18 00:00 82 01/19/18 00:00 98.1 71 20 168/87 98 98.1 01/18/18 22:12 Room Air 01/18/18 22:10 97.7 46 20 163/74 Room Air 97.7 01/18/18 21:22 73 159/84 01/18/18 20:00 98.0 73 16 159/84 100 Room Air 98.0 01/18/18 20:00 81 01/18/18 18:30 97.5 78 20 158/87 Room Air 97.5 01/18/18 18:30 Room Air 01/18/18 17:10 170/83 01/18/18 16:00 98.0 75 18 170/83 98 Room Air 98.0 01/18/18 16:00 76 Intake and Output 01/18/18 01/19/18 19:00 07:00 Intake Total 1000 ml Output Total 2000 ml Balance 1000 ml -2000 ml Other 1000 ml Output Hemodialysis UF 2000 ml # Voids 2 3 # Bowel Movements 2 Laboratory Tests Test 01/19/18 10:19 White Blood Count 8.0 K/UL (4.8-10.8) Red Blood Count 2.50 M/UL (4.70-6.10) L Hemoglobin 8.3 G/DL (14.2-18.0) L Hematocrit 24.2 % (42.0-52.0) L Mean Corpuscular Volume 97 FL (80-99) Mean Corpuscular Hemoglobin 33.2 PG (27.0-31.0) H Mean Corpuscular Hemoglobin Concent 34.4 G/DL (32.0-36.0) Red Cell Distribution Width 12.7 % (11.6-14.8) Platelet Count 231 K/UL (150-450) Mean Platelet Volume 6.7 FL (6.5-10.1) Neutrophils (%) (Auto) 73.6 % (45.0-75.0) Lymphocytes (%) (Auto) 16.4 % (20.0-45.0) L Monocytes (%) (Auto) 6.7 % (1.0-10.0) Eosinophils (%) (Auto) 2.1 % (0.0-3.0) Basophils (%) (Auto) 1.1 % (0.0-2.0) Sodium Level 140 MMOL/L (136-145) Potassium Level 4.1 MMOL/L (3.5-5.1) Chloride Level 102 MMOL/L (98-107) Carbon Dioxide Level 28 MMOL/L (21-32) Anion Gap 10 mmol/L (5-15) Blood Urea Nitrogen 48 mg/dL (7-18) H Creatinine 4.2 MG/DL (0.55-1.30) H Estimat Glomerular Filtration Rate 17.7 mL/min (>60) Glucose Level 176 MG/DL (74-106) H Calcium Level 8.4 MG/DL (8.5-10.1) L Height (Feet): 5 Height (Inches): 5.00 Weight (Pounds): 136 General Appearance: WD/WN, no apparent distress, alert Cardiovascular: normal rate Respiratory/Chest: normal breath sounds, no respiratory distress Abdominal Exam: normal bowel sounds, non tender, soft Extremities: normal range of motion, non-tender Trinity Gómez N.P. Jan 19, 2018 14:08
--- NOTE | 2018-01-19 15:26 | Nephrology Progress Note ---
Assessment/Plan Problem List: (1) ESRD (end stage renal disease) (2) Severe anemia (3) HTN (hypertension) (4) Atrial fibrillation, rapid Assessment Atrial Fib, converted (1) ESRD on HD (2) Chronic kidney disease (3) Anemia (4) HTN (hypertension) (5) h/o LOw Ca (6) DM Plan Patient has ESRD dialysis last 01/15 as OP next 01/18 and 01/20 SHI kidney noted on previous admission Echo Noted BP meds adjustments done Phos lo & Vit D PO monitor calcium Subjective ROS Limited/Unobtainable: No Constitutional: Reports: malaise Objective Objective Last 24 Hour Vital Signs Date Time Temp Pulse Resp B/P (MAP) Pulse Ox O2 Delivery O2 Flow Rate FiO2 01/19/18 12:00 98.3 20 165/81 100 Room Air 98.3 01/19/18 10:10 79 18 Room Air 01/19/18 08:33 67 170/78 01/19/18 08:33 170/78 01/19/18 04:00 98.1 71 19 166/90 99 98.1 01/19/18 00:00 82 01/19/18 00:00 98.1 71 20 168/87 98 98.1 01/18/18 22:12 Room Air 01/18/18 22:10 97.7 46 20 163/74 Room Air 97.7 01/18/18 21:22 73 159/84 01/18/18 20:00 98.0 73 16 159/84 100 Room Air 98.0 01/18/18 20:00 81 01/18/18 18:30 97.5 78 20 158/87 Room Air 97.5 01/18/18 18:30 Room Air 01/18/18 17:10 170/83 01/18/18 16:00 98.0 75 18 170/83 98 Room Air 98.0 01/18/18 16:00 76 Intake and Output 01/18/18 01/19/18 19:00 07:00 Intake Total 1000 ml Output Total 2000 ml Balance 1000 ml -2000 ml Other 1000 ml Output Hemodialysis UF 2000 ml # Voids 2 3 # Bowel Movements 2 Current Medications Medications (Trade) Dose Ordered Sig/Yannick Route PRN Reason Start Time Stop Time Status Last Admin Dose Admin Acetaminophen (Tylenol) 650 mg Q4H PRN ORAL FEVER 01/19/18 05:00 02/14/18 20:59 Albuterol/ Ipratropium (Albuterol/ Ipratropium) 3 ml Q4H PRN HHN Shortness of Breath 01/19/18 05:00 01/20/18 20:59 Aspirin (ASA) 162 mg DAILY ORAL 01/19/18 09:00 02/15/18 08:59 01/19/18 08:31 Calcium Acetate (Phoslo) 1,334 mg TIAC ORAL 01/19/18 06:30 02/15/18 11:29 01/19/18 12:25 Dextrose (Dextrose 50%) 25 ml STAT PRN IV Hypoglycemia BS BTWN 60-69 01/19/18 21:15 02/14/18 21:14 Dextrose (Dextrose 50%) 50 ml STAT PRN IV Hypoglycemia 01/19/18 21:00 02/14/18 20:59 Diltiazem HCl (Cardizem) 10 mg Q1H PRN IV HR > 120 01/19/18 02:00 02/14/18 20:59 Docusate Sodium (Colace) 100 mg THREE TIMES A DAY ORAL 01/19/18 09:00 02/15/18 12:59 01/19/18 12:26 Epoetin Siddhartha (Procrit (for ESRD on dialysis)) 10,000 units WED-WED-WED SUBQ 01/19/18 21:00 02/16/18 20:59 Heparin Sodium (Porcine) (Heparin 5000 units/ml) 5,000 units EVERY 8 HOURS SUBQ 01/19/18 06:00 02/14/18 21:59 01/19/18 05:39 Insulin Aspart (NovoLOG) BEFORE MEALS AND HS SUBQ 01/19/18 06:30 02/14/18 21:59 01/19/18 11:55 Lisinopril (Zestril) 10 mg BID ORAL 01/19/18 09:00 02/15/18 17:59 01/19/18 08:33 Meclizine HCl (Antivert) 12.5 mg BID ORAL 01/19/18 09:00 02/15/18 09:59 Metoprolol Tartrate (Lopressor) 100 mg EVERY 12 HOURS ORAL 01/19/18 09:00 02/14/18 21:29 01/19/18 08:33 Morphine Sulfate (Morphine Sulfate) 2 mg Q4H PRN IVP severe Pain (Pain Scale 7-10) 01/19/18 05:00 01/22/18 20:59 Nitroglycerin (Ntg) 0.4 mg Q5M PRN SL Prn Chest Pain 01/19/18 01:15 02/14/18 20:59 Ondansetron HCl (Zofran) 4 mg Q6H PRN IVP Nausea & Vomiting 01/19/18 03:00 02/14/18 20:59 Pantoprazole (Protonix) 40 mg DAILY ORAL 01/19/18 09:00 02/15/18 08:59 01/19/18 08:32 Polyethylene Glycol (Miralax) 17 gm DAILYPRN PRN ORAL Constipation 01/19/18 21:00 02/14/18 20:59 Pravastatin Sodium (Pravachol) 40 mg BEDTIME ORAL 01/19/18 21:00 02/14/18 20:59 Temazepam (Restoril) 15 mg HSPRN PRN ORAL Insomnia 01/19/18 21:00 01/22/18 20:59 Vitamin D (Vitamin D) 3,000 intlu DAILY ORAL 01/19/18 09:00 02/17/18 12:29 01/19/18 08:31 Laboratory Tests 01/19/18 10:19: White Blood Count 8.0, Red Blood Count 2.50L, Hemoglobin 8.3L, Hematocrit 24.2L , Mean Corpuscular Volume 97, Mean Corpuscular Hemoglobin 33.2H, Mean Corpuscular Hemoglobin Concent 34.4, Red Cell Distribution Width 12.7, Platelet Count 231, Mean Platelet Volume 6.7, Neutrophils (%) (Auto) 73.6, Lymphocytes (% ) (Auto) 16.4L, Monocytes (%) (Auto) 6.7, Eosinophils (%) (Auto) 2.1, Basophils (%) (Auto) 1.1, Sodium Level 140, Potassium Level 4.1, Chloride Level 102, Carbon Dioxide Level 28, Anion Gap 10, Blood Urea Nitrogen 48H, Creatinine 4.2H , Estimat Glomerular Filtration Rate 17.7, Glucose Level 176H, Calcium Level 8.4L Height (Feet): 5 Height (Inches): 5.00 Weight (Pounds): 136 General Appearance: no apparent distress Cardiovascular: normal rate Respiratory/Chest: decreased breath sounds Abdomen: soft Objective no change ABDOUL PINEDA Jan 19, 2018 15:26
[2018-01-19] MEDS ORDERED: Epogen (for ESRD on dialysis) SUBQ SCH (21:00)
[2018-01-19] MEDS ORDERED: Miralax 17gm pkt ORAL PRN (21:00)
--- NOTE | 2018-01-20 15:50 | Discharge Summary ---
Discharge Summary Discharge Summary Discharge Summary DATE OF ADMISSION: 01/15/2018 DATE OF DISCHARGE: 01/19/2018 CONSULTANTS: Dr. Ki Crenshaw BRIEF HOSPITAL COURSE: Patient is a 57-year-old male, recently diagnosed with end-stage renal disease, going through dialysis, became very anxious and short of breath. He went home and had shortness of breath, generalized weakness, chest pain, he also complained of lower back pain. He has medical history significant for diabetes mellitus , hypertension, coronary artery disease, anemia, and CHF. On evaluation at ED he was found to be in rapid A. fib. He was given diltiazem which slowed the heart rate and patient spontaneously converted. Repeat EKG showed normal sinus rhythm. Chest x-ray showed no acute disease. Troponin was 0.089. He was admitted for rapid A. fib. 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 Patient eventually converted to sinus rhythm and was continued on metoprolol 100 mg twice a day and lisinopril 10 mg twice a day. Amlodipine was switched to Cardizem CD 360 mg daily, and was eventually discontinued. He had elevated troponin likely due to renal failure. Echocardiogram showed ejection fraction of 55%. He had lower extremity edema, Doppler was negative for DVT. Anemia workup showed elevated ferritin, stool OB was negative. He was continued on inpatient hemodialysis. He was given phosphate binders and vitamin D. He was given respiratory treatments and was saturating well on room air. Urine culture with growth of Pseudomonas and mixed contaminants. He was then cleared for discharge home. FINAL DIAGNOSES: Rapid A. fib resolved, converted to sinus rhythm End-stage renal failure on hemodialysis Diabetes mellitus type 2 Hypertension Anemia of kidney disease Hepatitis B, recommend outpatient follow-up treatment DISPOSITION: Patient was discharged home with home health. DISCHARGE INSTRUCTIONS: Follow up in a week. I have been assigned to dictate discharge summary on this account, and I was not involved in the patient's management. Tiffanie Tapia NP Jan 20, 2018 15:50
== END 2018-01-19 16:19 | disposition home health service (06) | DRG 201 ==
LOC: EMR 16:15 → EDBEDREQ 16:54 → 2E 18:21 → EDBEDREQ 18:44 → 4E 01-19 01:20
DX: I48.91 Unspecified atrial fibrillation (principal); I13.2 Hypertensive heart and chronic kidney disease with heart failure and with stage 5 chronic kidney disease, or end stage renal disease; N18.6 End stage renal disease; E11.22 Type 2 diabetes mellitus with diabetic chronic kidney disease; B19.10 Unspecified viral hepatitis B without hepatic coma; E11.9 Type 2 diabetes mellitus without complications; N39.0 Urinary tract infection, site not specified; D63.1 Anemia in chronic kidney disease; R06.03 Acute respiratory distress; Z99.2 Dependence on renal dialysis; Z88.8 Allergy status to other drugs, medicaments and biological substances; I50.9 Heart failure, unspecified
CPT/HCPCS: 36415; 71045; 80048; 80053; 80061; 80076; 81001; 82270; 82550; 82553; 82607; 82728; 82962; 82977; 83036; 83540; 83550; 83735; 83880; 84100; 84133; 84300; 84443; 84484; 84550; 85007; 85025; 85610; 85730; 86140; 87081; 87086; 87181; 89050; 93005; 93970; 94664; 97803; 99291; J1815; J8499

== ENCOUNTER 2018-02-22 20:28 | Emergency (ER) | payer OTHER ==
[~2018-02-22] VITALS: Ht 165.1 cm; Wt 61.2 kg
[~2018-02-22 20:28] MED LIST changes: +ARTIFICIAL TEAR15 ML BOTH EYES; +COSOPT1 DRO2 RIGHT EYE; +FUROSEMIDE40 MG ORAL; +PRAVASTATIN SOD40 M1 ORAL; +VITAMIN D250000 UNI1 ORAL
[2018-02-22 20:45] VITALS: BP 159/96
--- NOTE | 2018-02-22 21:30 | Emergency Room Report ---
History of Present Illness General Chief Complaint: General Complaint Source: Patient Present Illness HPI 57-year-old male has history of end-stage renal disease Wednesday and Wednesday last dialysis was today, diabetes, hypertension, presenting with bilateral lateral leg numbness for 20 minutes. Patient also states that he has not had his insulin for one week as he has not been able to get a prescription to moss picker from the pharmacy. States that the bilateral leg numbness was months was mostly pain and cramping. It resolved spontaneously. He denies any fever chills chest pain shortness of breath abdominal pain. No weakness of his legs or arms. No headache no blurry vision. States that he has not been drinking or urinating more than his usual. No other complaints Allergies: Coded Allergies: HYDRALAZINE (Verified Allergy, Unknown, 12/03/17) states"heads get wuzzy" LABETALOL (Verified Allergy, Unknown, cp, 09/08/16) Mushroom (Verified Allergy, Unknown, 06/27/17) Patient History Past Medical History: see triage record Past Surgical History: none Pertinent Family History: none Reviewed Nursing Documentation: PMH: Agreed; PSxH: Agreed Nursing Documentation-PMH Hx Cardiac Problems: Yes Hx Hypertension: Yes Hx Diabetes: Yes Hx Cancer: No Hx Gastrointestinal Problems: No Hx Dialysis: Yes - ,, Hx Neurological Problems: No Review of Systems All Other Systems: negative except mentioned in HPI Physical Exam Vital Signs Date Time Temp Pulse Resp B/P (MAP) Pulse Ox O2 Delivery O2 Flow Rate FiO2 02/22/18 20:38 98.7 86 18 159/96 98 Room Air 98.8 Sp02 EP Interpretation: reviewed, normal General Appearance: alert, GCS 15, non-toxic, mild distress Head: normocephalic, atraumatic Eyes: bilateral eye normal inspection, bilateral eye PERRL, bilateral eye EOMI ENT: normal ENT inspection, normal pharynx, normal voice, moist mucus membranes Neck: normal inspection, full range of motion, supple Respiratory: normal inspection, lungs clear, normal breath sounds, no respiratory distress, no retraction, no wheezing, speaking full sentences, chest symmetrical Cardiovascular #1: normal inspection, regular rate, rhythm, no edema, normal capillary refill, other - Right-sided dialysis cath on chest Cardiovascular #2: 2+ radial (R), 2+ radial (L) Gastrointestinal: normal inspection, non tender, soft, non-distended, no guarding Musculoskeletal: normal inspection, back normal, normal range of motion, non- tender Neurologic: normal inspection, alert, oriented x3, responsive, architectural associate III-XII nml as tested, motor strength/tone normal, sensory intact, normal gait, speech normal Psychiatric: normal inspection, judgement/insight normal, memory normal Skin: normal inspection, normal color, no rash, warm/dry, well hydrated, normal turgor Medical Decision Making Diagnostic Impression: Primary Impression: Bilateral leg cramps ER Course 57-year-old male with bilateral leg cramping/numbness for 20 minutes only, also has not been on his insulin DDX: Electrolyte disturbance, myalgias, infectious, hyperglycemia rule out DKA Unlikely to be CVA given symptoms were bilateral and it's mostly patient having cramps being rather than numbness At this time neurological exam is completely normal not concerned with compression Plan: Obtain labs, ua, ucx, CXR, EKG ER course: Patient has remained stable during ED stay. LABS NORMAL neurologically intact has been sleeping comfortably stable for dc Disposition: Patient is to be discharged to home. Patient is instructed to follow up with their primary care doctor within 5 days. Please note that this Emergency Department Report was dictated using [employer] layer technology software, occasionally this can lead to erroneous entry secondary to interpretation by the dictation equipment EKG Diagnostic Results EP Interpretation: Yes Rate: normal Rhythm: NSR ST Segments: twi Avl, possible slight peak T wave V2 ASA given to patient: No Rhythm Strip EP Interpretation: Yes Rate: 70 Rhythm: NSR, no PVCs, no ectopy Chest X-ray CXR: Ordered: Yes 1 view Indication: Chest pain EP interpretation: Yes Interpretation: No consolidation, no effusion, no PTX, no acute cardiopulmonary disease, dialysis cath noted Impression: No acute disease Electronically signed by Mara Jose MD Laboratory Tests Test 02/22/18 21:10 02/22/18 22:10 White Blood Count 7.5 K/UL (4.8-10.8) Red Blood Count 3.94 M/UL (4.70-6.10) L Hemoglobin 12.7 G/DL (14.2-18.0) L Hematocrit 39.7 % (42.0-52.0) L Mean Corpuscular Volume 101 FL (80-99) H Mean Corpuscular Hemoglobin 32.2 PG (27.0-31.0) H Mean Corpuscular Hemoglobin Concent 32.0 G/DL (32.0-36.0) Red Cell Distribution Width 14.5 % (11.6-14.8) Platelet Count 237 K/UL (150-450) Mean Platelet Volume 6.7 FL (6.5-10.1) Neutrophils (%) (Auto) 78.5 % (45.0-75.0) H Lymphocytes (%) (Auto) 14.1 % (20.0-45.0) L Monocytes (%) (Auto) 5.0 % (1.0-10.0) Eosinophils (%) (Auto) 1.3 % (0.0-3.0) Basophils (%) (Auto) 1.1 % (0.0-2.0) Sodium Level 141 MMOL/L (136-145) Potassium Level 5.7 MMOL/L (3.5-5.1) H Chloride Level 103 MMOL/L (98-107) Carbon Dioxide Level 29 MMOL/L (21-32) Anion Gap 9 mmol/L (5-15) Blood Urea Nitrogen 31 mg/dL (7-18) H Creatinine 5.0 MG/DL (0.55-1.30) H Estimate Glomerular Filtration Rate 14.5 mL/min (>60) Glucose Level 126 MG/DL (74-106) H Calcium Level 8.6 MG/DL (8.5-10.1) Total Bilirubin 0.5 MG/DL (0.2-1.0) Aspartate Amino Transferase (AST) 29 U/L (15-37) Alanine Aminotransferase (ALT) 23 U/L (12-78) Alkaline Phosphatase 159 U/L (46-116) H Total Creatine Kinase 574 U/L (26-308) H Troponin I 0.000 ng/mL (0.000-0.056) Pro-B-Type Natriuretic Peptide 596 pg/mL (0-125) H Total Protein 9.7 G/DL (6.4-8.2) H Albumin 4.1 G/DL (3.4-5.0) Globulin 5.6 g/dL Albumin/Globulin Ratio 0.7 (1.0-2.7) L Urine Color Pale yellow Urine Appearance Clear Urine pH 6 (4.5-8.0) Urine Specific Sandy 1.015 (1.005-1.035) Urine Protein 3+ (NEGATIVE) H Urine Glucose (UA) Negative (NEGATIVE) Urine Ketones Negative (NEGATIVE) Urine Occult Blood 5+ (NEGATIVE) H Urine Nitrite Negative (NEGATIVE) Urine Bilirubin Negative (NEGATIVE) Urine Urobilinogen Normal MG/DL (0.0-1.0) Urine Leukocyte Esterase 2+ (NEGATIVE) H Urine RBC 5-10 /HPF (0 - 0) H Urine WBC 2-4 /HPF (0 - 0) Urine Squamous Epithelial Cells None /LPF (NONE/OCC) Urine Bacteria Few /HPF (NONE) Last Vital Signs Date Time Temp Pulse Resp B/P (MAP) Pulse Ox O2 Delivery O2 Flow Rate FiO2 02/22/18 20:45 98.8 18 159/96 98 Room Air 98.8 02/22/18 20:38 86 Disposition: HOME, SELF-CARE Condition: Improved Mara Jose M.D. February 22, 2018 21:30
[2018-02-22 21:35] LABS: BASOPHILS % (AUTO) 1.1 % (0.0-2.0); EOSINOPHILS % (AUTO) 1.3 % (0.0-3.0); HEMATOCRIT 39.7 % (42.0-52.0); HEMOGLOBIN 12.7 G/DL (14.2-18.0); LYMPHOCYTES % (AUTO) 14.1 % (20.0-45.0); MEAN CORPUSCULAR VOLUME 101 FL (80-99); NEUTROPHILS % (AUTO) 78.5 % (45.0-75.0); PLATELET COUNT 237 K/UL (150-450); RED BLOOD COUNT 3.94 M/UL (4.70-6.10); RED CELL DISTRIBUTION WIDTH 14.5 % (11.6-14.8); WHITE BLOOD COUNT 7.5 K/UL (4.8-10.8)
[2018-02-22 21:43] LABS: ANION GAP 9 mmol/L (5-15); BLOOD UREA NITROGEN 31 mg/dL (7-18); CALCIUM 8.6 MG/DL (8.5-10.1); CARBON DIOXIDE 29 MMOL/L (21-32); CHLORIDE 103 MMOL/L (98-107); POTASSIUM 5.7 MMOL/L (3.5-5.1); SODIUM 141 MMOL/L (136-145)
[2018-02-22 21:54] LABS: ALANINE AMINOTRANSFERASE 23 U/L (12-78); ALBUMIN 4.1 G/DL (3.4-5.0); ALBUMIN/GLOBULIN RATIO 0.7 (1.0-2.7); ALKALINE PHOSPHATASE 159 U/L (46-116); ASPARTATE AMINO TRANSFERASE 29 U/L (15-37); BILIRUBIN,TOTAL 0.5 MG/DL (0.2-1.0); CREATINE KINASE 574 U/L (26-308)
[2018-02-22 22:37] LABS: APPEARANCE,URINE CLEAR; BILIRUBIN, URINE NEGATIVE (NEGATIVE); COLOR,URINE PALE YELLOW; GLUCOSE, URINE (UA) NEGATIVE (NEGATIVE); KETONES,URINE NEGATIVE (NEGATIVE); LEUKOCYTE ESTERASE ,URINE 2+ (NEGATIVE); NITRITE,URINE NEGATIVE (NEGATIVE); PH,URINE 6 (4.5-8.0); PROTEIN,URINE 3+ (NEGATIVE); UROBILINOGEN,URINE NORMAL MG/DL (0.0-1.0)
[2018-02-22 23:10] VITALS: BP 159/73
--- NOTE | 2018-02-23 10:26 | Diagnostic Imaging Report ---
Indication: Chest Comparison: 01/15/2018 A single view chest radiograph was obtained. Findings: Cardiomediastinal appearance is within normal limits for age. Pulmonary vascularity is appropriate. The diaphragmatic contour is smooth and costophrenic angles are sharp. No pleural effusions are identified. The bones are unremarkable. Right permacath noted. Impression: No acute findings
--- NOTE | 2018-02-23 15:55 | Cardiology Report ---
APPROVED REPORT EKG Measurement Heart [id number] Sinus rhythm with premature atrial complexes Minimal voltage criteria for LVH, may be normal variant Borderline ECG
== END 2018-02-22 23:10 | disposition home or self-care (01) ==
LOC: EMR 21:01
DX: R25.2 Cramp and spasm (principal); R20.0 Anesthesia of skin; E11.9 Type 2 diabetes mellitus without complications; I12.0 Hypertensive chronic kidney disease with stage 5 chronic kidney disease or end stage renal disease; N18.6 End stage renal disease; Z99.2 Dependence on renal dialysis; Z91.14 Patient's other noncompliance with medication regimen; Z88.8 Allergy status to other drugs, medicaments and biological substances
CPT/HCPCS: 36415; 71045; 80053; 81003; 82550; 83880; 84484; 85025; 93005; 99283

== ENCOUNTER 2020-01-11 15:24 | Emergency (ER) | payer MEDICARE, OTHER ==
[~2020-01-11] VITALS: Ht 165.1 cm; Wt 61.2 kg
[2020-01-11 15:48] VITALS: BP 152/80
[2020-01-11] MEDS ORDERED: Omnipaque-300 100ml vial INJ PRN (16:00)
--- NOTE | 2020-01-11 16:23 | Emergency Room Report ---
History of Present Illness General Chief Complaint: Abdominal Pain Source: Patient Present Illness HPI 59-year-old male with a history of CKD and currently on dialysis here complaining of 3 days of left mid to lower quadrant abdominal pain rating. 5 out of 10 without radiation. Also complains of foul odor in his urine. Denies any hematuria, urinary frequency or urgency. Patient gets dialyzed 3 times a week and last dialysis was done earlier today prior to arrival to ED. Denies any fever and chills, chest pain, shortness of breath, headache and dizziness at this time. Patient package sorter is Dr. Guerra. Denies any nausea vomiting diarrhea constipation. denies recent travel, fever chills. Reports that earlier today when abdomen was distended however went to dialysis and felt better after. Allergies: Coded Allergies: HYDRALAZINE (Verified Allergy, Unknown, 12/03/17) states"heads get wuzzy" LABETALOL (Verified Allergy, Unknown, cp, 09/08/16) Mushroom (Verified Allergy, Unknown, 06/27/17) COVID-19 Screening Contact w/high risk pt: No Recent Travel to affected area: No Experienced COVID-19 symptoms?: No Patient History Past Medical History: see triage record Past Surgical History: none Pertinent Family History: none Immunizations: UTD Reviewed Nursing Documentation: PMH: Agreed; PSxH: Agreed Nursing Documentation-PMH Hx Cardiac Problems: Yes - Kidney failure Hx Hypertension: Yes Hx Diabetes: Yes Hx Cancer: No Hx Gastrointestinal Problems: No Hx Dialysis: Yes - T,TH,S Hx Neurological Problems: No Review of Systems All Other Systems: negative except mentioned in HPI Physical Exam Vital Signs Date Time Temp Pulse Resp B/P (MAP) Pulse Ox O2 Delivery O2 Flow Rate FiO2 01/11/20 15:27 99.0 81 19 152/80 (104) 97 Room Air Sp02 EP Interpretation: reviewed, normal General Appearance: no apparent distress, alert, GCS 15, non-toxic Head: normocephalic, atraumatic Eyes: bilateral eye normal inspection ENT: hearing grossly normal, normal pharynx, no angioedema, normal voice Neck: full range of motion, supple/symm/no masses Respiratory: chest non-tender, lungs clear, normal breath sounds, no rhonchi, no wheezing, speaking full sentences Cardiovascular #1: regular rate, rhythm, no edema, no murmur Gastrointestinal: non tender, soft, no mass, no peritonitis, no bruit, non- distended, no guarding Rectal: deferred Genitourinary: no CVA tenderness Musculoskeletal: back normal, no calf tenderness Neurologic: alert, motor strength/tone normal, oriented x3, sensory intact, responsive, speech normal Psychiatric: judgement/insight normal, memory normal, mood/affect normal, no suicidal/homicidal ideation Skin: no rash Lymphatic: no adenopathy Medical Decision Making PA Attestation All diagnoses and treatment plans were reviewed and discussed with my supervising physician Dr. King Diagnostic Impression: Primary Impression: Abdominal pain Additional Impression: Referred pain ER Course 59-year-old male with a history of CKD and currently on dialysis here complaining of 3 days of left mid to lower quadrant abdominal pain rating. 5 out of 10 without radiation. Also complains of foul odor in his urine. Denies any hematuria, urinary frequency or urgency. Patient gets dialyzed 3 times a week and last dialysis was done earlier today prior to arrival to ED. Denies any fever and chills, chest pain, shortness of breath, headache and dizziness at this time. Patient package sorter is Dr. Guerra. Denies any nausea vomiting diarrhea constipation. denies recent travel, fever chills. Reports that earlier today when abdomen was distended however went to dialysis and felt better after. Ddx considered but are not limited to: appendicitis, cholycisitis, gastritis, gasthroentritis, UTI, pylonephritis, SBO, diverticulitis, influenza with GI manifestation, DE, complication with Vital signs: are WNL, pt. is afebrile H&PE are most consistent with: abdominal pain, possible referred pain from hip ORDERS: abdominal CT, abdominal pain set, EKG, Tylenol ED INTERVENTIONS: None required at this time. DISCHARGE: At this time pt. is stable for d/c to home. Will provide printed patient care instructions, and any necessary prescriptions. Care plan and follow up instructions have been discussed with the patient prior to discharge. Patient to follow with primary doctor and package sorter, at this time no abnormal findings noted on lab as well as CT abdomen pelvis. If worsening symptoms return to emergency room ORDERS: abdominal CT, abdominal pain set, EKG, ED INTERVENTIONS: None required at this time. DISCHARGE: At this time pt. is stable for d/c to home. Will provide printed patient care instructions, and any necessary prescriptions. Care plan and follow up instructions have been discussed with the patient prior to discharge. EKG Diagnostic Results Rate: normal Rhythm: NSR ST Segments: no acute changes Other Impression Peaked T waves in anterior leads most likely secondary to CKD, no hyperkalemia noted on CMP CT/MRI/US Diagnostic Results CT/MRI/US Diagnostic Results : Imaging Test Ordered: CT abd pelvis no contrast Impression FINDINGS: Small ill-defined tree-in-bud nodular densities at the medial right base may be inflammatory or infectious. Bilateral platelike areas of scarring or atelectasis at the visualized bases. The gallbladder is distended without surrounding inflammatory change, clinically correlate. There is a small amount of layering mild high density near the fundus suggesting gravel. The kidneys appear mildly small in size without hydronephrosis. The abdominal solid organs and abdominal aorta appear within limits on noncontrast imaging. Small left hepatic cyst. No bowel dilation or free air. Moderate colonic stool. Normal caliber appendix without secondary signs. The bladder appears within limits. No free fluid. Pelvic vascular calcifications. IMPRESSION: The gallbladder is distended without surrounding inflammatory change, clinically correlate. There is a small amount of layering mild high density near the fundus suggesting gravel. Small ill-defined tree-in-bud nodular densities at the medial right base may be inflammatory or infectious. Moderate colonic stool. Last Vital Signs Date Time Temp Pulse Resp B/P (MAP) Pulse Ox O2 Delivery O2 Flow Rate FiO2 01/11/20 15:48 99.0 81 19 152/80 97 Room Air Disposition: HOME, SELF-CARE Condition: Stable Referrals: Ki Guerra MD (PCP) Patient Instructions: Abdominal Pain, Adult Additional Instructions: Patient to follow with primary doctor and package sorter, at this time no abnormal findings noted on lab as well as CT abdomen pelvis. If worsening symptoms return to emergency room Carlee Coronel Jan 11, 2020 16:23
[2020-01-11 16:25] LABS: ANION GAP 8 mmol/L (5-15); BLOOD UREA NITROGEN 12 mg/dL (7-18); CALCIUM 9.6 MG/DL (8.5-10.1); CARBON DIOXIDE 30 MMOL/L (21-32); CHLORIDE 100 MMOL/L (98-107); CREATININE 3.3 MG/DL (0.55-1.30); SODIUM 138 MMOL/L (136-145)
[2020-01-11 16:42] LABS: ALANINE AMINOTRANSFERASE 22 U/L (12-78); ALBUMIN 4.1 G/DL (3.4-5.0); ALBUMIN/GLOBULIN RATIO 0.8 (1.0-2.7); ALKALINE PHOSPHATASE 165 U/L (46-116); APPEARANCE,URINE CLEAR; ASPARTATE AMINO TRANSFERASE 21 U/L (15-37); BASOPHILS % (AUTO) 0.5 % (0.0-2.0); BILIRUBIN, URINE NEGATIVE (NEGATIVE); BILIRUBIN,TOTAL 0.7 MG/DL (0.2-1.0); CKMB 5.9 NG/ML (0.0-3.6); COLOR,URINE PALE YELLOW; EOSINOPHILS % (AUTO) 0.4 % (0.0-3.0); GLUCOSE, URINE (UA) NEGATIVE (NEGATIVE); HEMOGLOBIN 12.2 G/DL (14.2-18.0); KETONES,URINE NEGATIVE (NEGATIVE); LEUKOCYTE ESTERASE ,URINE NEGATIVE (NEGATIVE); LYMPHOCYTES % (AUTO) 12.8 % (20.0-45.0); MEAN CORPUSCULAR VOLUME 101 FL (80-99); MONOCYTES % (AUTO) 5.9 % (1.0-10.0); NEUTROPHILS % (AUTO) 80.4 % (45.0-75.0); NITRITE,URINE NEGATIVE (NEGATIVE); PH,URINE 8 (4.5-8.0); PLATELET COUNT 166 K/UL (150-450); PROTEIN,URINE 3+ (NEGATIVE); RED BLOOD COUNT 3.74 M/UL (4.70-6.10); RED CELL DISTRIBUTION WIDTH 15.2 % (11.6-14.8); UROBILINOGEN,URINE NORMAL MG/DL (0.0-1.0)
[2020-01-11 17:38] LABS: CREATINE KINASE 359 U/L (26-308)
--- NOTE | 2020-01-11 17:44 | Diagnostic Imaging Report ---
History: PAIN Exam: CT ABDOMEN + PELVIS Without Contrast Technique more: CTDI is 3.80 mGy and DLP is 187.70 mGy-cm. Technique more: One or more of the following dose reduction techniques were used: automated exposure control, adjustment of the mA and/or kV according to patient size, use of iterative reconstruction technique. Comparison: FINDINGS: Small ill-defined tree-in-bud nodular densities at the medial right base may be inflammatory or infectious. Bilateral platelike areas of scarring or atelectasis at the visualized bases. The gallbladder is distended without surrounding inflammatory change, clinically correlate. There is a small amount of layering mild high density near the fundus suggesting gravel. The kidneys appear mildly small in size without hydronephrosis. The abdominal solid organs and abdominal aorta appear within limits on noncontrast imaging. Small left hepatic cyst. No bowel dilation or free air. Moderate colonic stool. Normal caliber appendix without secondary signs. The bladder appears within limits. No free fluid. Pelvic vascular calcifications. IMPRESSION: The gallbladder is distended without surrounding inflammatory change, clinically correlate. There is a small amount of layering mild high density near the fundus suggesting gravel. Small ill-defined tree-in-bud nodular densities at the medial right base may be inflammatory or infectious. Moderate colonic stool.
[2020-01-11 17:45] VITALS: BP 192/82
[2020-01-11] MEDS ORDERED: Furosemide 40mg tab ORAL ONE (17:45)
[2020-01-11] MEDS ORDERED: TYLENOL EXTRA500 MG ORAL (18:06)
[2020-01-11 18:23] VITALS: BP 185/78
[2020-01-11 18:25] VITALS: BP 185/78
== END 2020-01-11 18:30 | disposition home or self-care (01) ==
LOC: EMR 15:44
DX: R10.32 Left lower quadrant pain (principal); I12.9 Hypertensive chronic kidney disease with stage 1 through stage 4 chronic kidney disease, or unspecified chronic kidney disease; E11.22 Type 2 diabetes mellitus with diabetic chronic kidney disease; N18.9 Chronic kidney disease, unspecified; Z91.15 Patient's noncompliance with renal dialysis; Z88.8 Allergy status to other drugs, medicaments and biological substances
CPT/HCPCS: 36415; 74176; 80053; 81003; 82550; 82553; 83690; 84484; 85025; 85610; 85730; 93005; 99284

== ENCOUNTER 2020-06-18 21:40 | Emergency (ER) | payer MEDICARE, OTHER ==
[~2020-06-18] VITALS: Ht 167.6 cm; Wt 62.1 kg
[~2020-06-18 21:40] MED LIST changes: +TYLENOL EXTRA500 MG ORAL
--- NOTE | 2020-06-18 21:40 | NUR ---
ED Nurse Note: Patient brought in by ambulance [id number] from home with c/o bleeding on left upper dialysis shunt. Patient had his dialysis this am () and few hours after taking the dressing off before shower, the shunt bleed and was "spurting blood". Pressure dressing applied to site. No LOC noted. No chest pain, SOB/ noted. No s/sx bleeding on the site at triage. Placed on monitor bed.
--- NOTE | 2020-06-18 22:00 | NUR ---
ED Nurse Note: ERMD at bedside
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
[2020-06-18] MEDS ORDERED: Surgicel 4in x 8in TOPIC ONE (22:30)
[2020-06-18 22:45] VITALS: BP 139/88
--- NOTE | 2020-06-18 22:45 | NUR ---
ED Nurse Note: Blood sent to lab
[2020-06-18 23:06] LABS: BASOPHILS % (AUTO) 1.1 % (0.0-2.0); EOSINOPHILS % (AUTO) 1.6 % (0.0-3.0); HEMATOCRIT 36.6 % (42.0-52.0); HEMOGLOBIN 11.3 G/DL (14.2-18.0); LYMPHOCYTES % (AUTO) 19.5 % (20.0-45.0); MEAN CORPUSCULAR VOLUME 105 FL (80-99); MONOCYTES % (AUTO) 8.3 % (1.0-10.0); NEUTROPHILS % (AUTO) 69.4 % (45.0-75.0); PLATELET COUNT 208 K/UL (150-450); WHITE BLOOD COUNT 5.9 K/UL (4.8-10.8)
[2020-06-18 23:10] LABS: CALCIUM 8.9 MG/DL (8.5-10.1); CREATININE 5.9 MG/DL (0.55-1.30); POTASSIUM 4.7 MMOL/L (3.5-5.1)
--- NOTE | 2020-06-18 23:15 | NUR ---
ED Nurse Note: Surgicel applied to left shunt covered with simple dressing and kerlix
[2020-06-18 23:38] VITALS: BP 118/75
--- NOTE | 2020-06-18 23:38 | NUR ---
ER DISCHARGE NOTE: Patient is cleared to be discharged per ERMD, pt is aox4, on room air, with stable vital signs. pt was given dc and prescription instructions, pt was able to verbalize understanding, pt id band and iv site removed without complications. pt is able to ambulate with steady gait. pt took all belongings.
== END 2020-06-18 23:41 | disposition home or self-care (01) ==
LOC: EDBD 21:40 → EMR 22:20
DX: T82.838A Hemorrhage due to vascular prosthetic devices, implants and grafts, initial encounter (principal); X58.XXXA Exposure to other specified factors, initial encounter; Y92.9 Unspecified place or not applicable; I12.0 Hypertensive chronic kidney disease with stage 5 chronic kidney disease or end stage renal disease; E11.22 Type 2 diabetes mellitus with diabetic chronic kidney disease; N18.6 End stage renal disease; Z99.2 Dependence on renal dialysis; Z88.8 Allergy status to other drugs, medicaments and biological substances
CPT/HCPCS: 36415; 80048; 85025; 86850; 86900; 86901; 99283